=== PATIENT | male | born 1965 | race Caucasian/White ===

== ENCOUNTER → 2020-08-12 17:57 | Outpatient (CLI) | payer MEDICARE, MEDICAID, SELFPAY ==
[2020-08-12 18:23] LABS: Basophils # 0.2 K/mm3 (0-0.2); Eosinophils # 0.8 K/mm3 (0.0-0.4); Eosinophils % 4.4 % (0.1-12.0); Hematocrit 45.2 % (42.0-52.0); Hemoglobin 15.9 g/dL (14.1-18.0); Lymphocytes # 3.7 K/mm3 (0.7-4.5); Lymphocytes % 20.9 % (10-50); Mean Corpuscular HGB Conc 35.1 g/dL (31.8-35.4); Mean Corpuscular Hemoglobin 30.1 pg (27.0-31.2); Mean Corpuscular Volume 85.5 fl (80-94); Mean Platelet Volume 10.1 fl (7.4-10.4); Monocytes % 5.6 % (1.7-9.3); Neutrophils # 12.1 K/mm3 (1.8-7.8); Platelet Count 267 K/mm3 (142-424); Red Blood Count 5.28 M/mm3 (4.60-6.20); Red Cell Distribution Width 14.8 % (11.5-17.5); White Blood Count 17.8 K/mm3 (4.8-10.8)
[2020-08-12 18:27] LABS: MANUAL DIFFERENTIAL MANUAL DIFFERENTIAL (MANUAL DIFF)
[2020-08-12 18:29] LABS: Alanine Aminotransferase 28 U/L (12-78); Albumin Level 4.5 g/dl (3.5-5.0); Albumin/Globulin Ratio 1.4 (1.1-1.8); Alkaline Phosphatase 106 U/L (38-126); Anion Gap 18.6 mEq/L (5-15); Aspartate Amino Transferase 33 U/L (17-59); Bilirubin,Total 0.5 mg/dl (0.2-1.3); Blood Urea Nitrogen 9 mg/dl (9-20); Calcium 9.9 mg/dl (8.4-10.2); Carbon Dioxide 23 mmol/L (22.0-30.0); Chloride 101 mmol/L (98-107); Estimated Glomerular Filt Rate 58 ml/min (>60); GFR (African American) 70 ML/MIN (>60); Globulin 3.2 g/dL (1.3-3.2); Glucose 206 mg/dl (74-100); Potassium 4.6 mmoL/L (3.5-5.1); Sodium 138 mmol/L (136-145); Total Protein,Serum 7.7 g/dl (6.3-8.2)
[2020-08-12 18:33] LABS: Eosinophils % 4 % (0-3); Lymphocytes % 23 % (10-50); Monocytes % 10 % (2-9); Neutrophils % 63 % (42-76); Platelet Estimate Normal; RBC Morphology Normal; Total Cells Counted 100
[2020-08-12 18:46] LABS: T4 (Thyroxine) 9.5 ug/dl (5.53-11.0)
[2020-08-12 18:48] LABS: Hemoglobin A1C 7.6 % (4.0-6.0)
== END ==
PROVIDERS: Visit Provider Family Medicine
DX: G62.9 Polyneuropathy, unspecified (principal); R53.83 Other fatigue; E11.9 Type 2 diabetes mellitus without complications
CPT/HCPCS: 80053; 83036; 84436; 84443; 85007; 85025

== ENCOUNTER → 2021-04-21 13:48 | Outpatient (CLI) | payer MEDICARE, MEDICAID, SELFPAY ==
[2021-04-21 14:01] LABS: Alanine Aminotransferase 36 U/L (12-78); Albumin Level 4.3 g/dl (3.5-5.0); Albumin/Globulin Ratio 1.4 (1.1-1.8); Alkaline Phosphatase 93 U/L (38-126); Anion Gap 14.5 mEq/L (5-15); Aspartate Amino Transferase 32 U/L (17-59); Bilirubin,Total 0.7 mg/dl (0.2-1.3); Blood Urea Nitrogen 12 mg/dl (9-20); Calcium 9.2 mg/dl (8.4-10.2); Carbon Dioxide 23 mmol/L (22.0-30.0); Chloride 107 mmol/L (98-107); Estimated Glomerular Filt Rate 70 ml/min (>60); GFR (African American) 84 ML/MIN (>60); Glucose 186 mg/dl (74-100); HDL Cholesterol 21 mg/dl (40-60); Potassium 4.5 mmoL/L (3.5-5.1); Sodium 140 mmol/L (136-145); Total Protein,Serum 7.3 g/dl (6.3-8.2); Triglycerides 159 mg/dl (30-150); VLDL Cholesterol 32 mg/dL (0-40)
[2021-04-21 14:05] LABS: Chol/HDL Ratio 2.4 (1-3.5); Cholesterol < 50 mg/dl (140-200)
[2021-04-21 14:07] LABS: Creatinine,Urine Random 79 mg/dL (Not Estab.)
[2021-04-21 14:08] LABS: Microalbumin < 6.000 mg/L (0-16.7)
[2021-04-21 14:17] LABS: 25-OH Vitamin D, Total 54.2 ng/mL (30-100)
[2021-04-21 14:19] LABS: T4 (Thyroxine) 11.5 ug/dl (5.53-11.0)
[2021-04-21 14:24] LABS: Direct LDL Cholesterol < 30.00 mg/dL (100-129)
[2021-04-21 14:26] LABS: Basophils # 0.2 K/mm3 (0-0.2); Basophils % 1.2 % (0.1-2.0); Eosinophils # 0.5 K/mm3 (0.0-0.4); Eosinophils % 3.7 % (0.1-12.0); Hematocrit 48.2 % (42.0-52.0); Hemoglobin 16.3 g/dL (14.1-18.0); Lymphocytes # 2.8 K/mm3 (0.7-4.5); Lymphocytes % 20.6 % (10-50); Mean Corpuscular HGB Conc 33.9 g/dL (31.8-35.4); Mean Corpuscular Hemoglobin 28.7 pg (27.0-31.2); Mean Corpuscular Volume 84.7 fl (80-94); Mean Platelet Volume 11.3 fl (7.4-10.4); Monocytes # 0.6 K/mm3 (0.1-1.0); Monocytes % 4.7 % (1.7-9.3); Neutrophils # 9.4 K/mm3 (1.8-7.8); Neutrophils % 69.8 % (37.0-80.0); Platelet Count 220 K/mm3 (142-424); Red Blood Count 5.69 M/mm3 (4.60-6.20); Red Cell Distribution Width 14.9 % (11.5-17.5); White Blood Count 13.5 K/mm3 (4.8-10.8)
[2021-04-21 14:32] LABS: Prostate Specific Ag Screen 0.7 ng/ml (0.0-4.0); Thyroid Stimulating Hormone 0.32 uIU/mL (0.465-4.68)
[2021-04-21 15:04] LABS: Hemoglobin A1C 7.8 % (4.0-6.0)
== END ==
PROVIDERS: Visit Provider Family Medicine
DX: E11.9 Type 2 diabetes mellitus without complications (principal); Z12.5 Encounter for screening for malignant neoplasm of prostate; E55.9 Vitamin D deficiency, unspecified
CPT/HCPCS: 80053; 80061; 82043; 82306; 82570; 83036; 84436; 84443; 85025; G0103

== ENCOUNTER → 2021-07-20 17:06 | Outpatient (CLI) | payer MEDICARE, MEDICAID, SELFPAY ==
[2021-07-20 18:47] LABS: Hemoglobin A1C 9.9 % (4.0-6.0)
== END ==
PROVIDERS: Visit Provider Family Medicine
DX: E11.9 Type 2 diabetes mellitus without complications (principal); Z79.4 Long term (current) use of insulin
CPT/HCPCS: 83036

== ENCOUNTER → 2021-12-12 20:38 | Outpatient (CLI) | payer MEDICARE, MEDICAID, SELFPAY ==
[2021-12-12 21:58] LABS: Hemoglobin A1C 7.1 % (4.0-6.0)
[2021-12-12 22:07] LABS: Alanine Aminotransferase 24 U/L (12-78); Albumin Level 4.4 g/dl (3.5-5.0); Albumin/Globulin Ratio 1.5 (1.1-1.8); Alkaline Phosphatase 73 U/L (38-126); Anion Gap 13.4 mEq/L (5-15); Aspartate Amino Transferase 24 U/L (17-59); Bilirubin,Total 0.4 mg/dl (0.2-1.3); Blood Urea Nitrogen 13 mg/dl (9-20); Calcium 9.9 mg/dl (8.4-10.2); Carbon Dioxide 27 mmol/L (22.0-30.0); Chloride 100 mmol/L (98-107); Estimated Glomerular Filt Rate 69 ml/min (>60); GFR (African American) 84 ML/MIN (>60); Globulin 2.9 g/dL (1.3-3.2); Glucose 169 mg/dl (74-100); Potassium 4.4 mmoL/L (3.5-5.1); Sodium 136 mmol/L (136-145); Total Protein,Serum 7.3 g/dl (6.3-8.2)
== END ==
PROVIDERS: Visit Provider Family Medicine
DX: Z00.00 Encounter for general adult medical examination without abnormal findings (principal); E11.9 Type 2 diabetes mellitus without complications; Z79.4 Long term (current) use of insulin
CPT/HCPCS: 80053; 83036

== ENCOUNTER → 2022-05-11 13:32 | Outpatient (CLI) | payer MEDICARE, MEDICAID, SELFPAY ==
--- NOTE | 2022-05-11 13:36 | XR_ITS ---
FINAL REPORT CLINICAL HISTORY: knee pain FINDINGS: LEFT KNEE Four views of the left knee were obtained. There is no acute fracture or dislocation. Visualized joint spaces are normally aligned. Soft tissues are unremarkable. IMPRESSION: No acute bony abnormality. Reviewed, Interpreted and Dictated by Heron Claudio III, MD Transcribed by Heike Gomez Authenticated and [facility]
== END ==
PROVIDERS: PCP Family Medicine; Visit Provider Orthopaedic Surgery
DX: M25.562 Pain in left knee (principal)
CPT/HCPCS: 73564

== ENCOUNTER → 2023-01-24 14:44 | Outpatient (CLI) | payer MEDICARE, MEDICAID, SELFPAY ==
--- NOTE | 2023-01-24 14:50 | XR_ITS ---
FINAL REPORT CLINICAL HISTORY: Neck, mid back, and low back pain COMPARISON: None FINDINGS: CERVICAL SPINE: Limited evaluation of the cervical spine due to patient positioning and overlap of soft tissues. There are postsurgical changes from anterior fusion of C5-6. No gross malalignment. There is multilevel degenerative disc disease. Precervical soft tissues are unremarkable. IMPRESSION: Very limited exam. Degenerative disease. Consider CT if further evaluation needed. THORACIC SPINE: Changes from posterior fusion from T7 through T10. Alignment is normal. Vertebral body heights are preserved. There is multilevel degenerative disc disease. No acute paraspinous abnormality. IMPRESSION: Degenerative and postsurgical changes with no acute process. LUMBAR SPINE: Postoperative changes from fusion from L4 through S1. Vertebral body heights are preserved. Alignment is normal. There is multilevel degenerative disc disease. No acute paraspinous abnormality. IMPRESSION: Degenerative and postsurgical changes with no acute process. Reviewed, Interpreted and Dictated by Carmela Hernández MD Transcribed by Na Sims Authenticated and [facility]
== END ==
PROVIDERS: PCP Family Medicine; Visit Provider Family Medicine
DX: M54.2 Cervicalgia (principal); M54.6 Pain in thoracic spine; M54.9 Dorsalgia, unspecified; G89.29 Other chronic pain; M54.50 Low back pain, unspecified
CPT/HCPCS: 72084

== ENCOUNTER → 2023-04-16 15:48 | Outpatient (CLI) | payer MEDICARE, MEDICAID, SELFPAY | PROVIDERS: PCP Family Medicine; Visit Provider Family Medicine | DX: E11.59 Type 2 diabetes mellitus with other circulatory complications (principal) ==

== ENCOUNTER → 2023-04-16 19:25 | Outpatient (CLI) | payer MEDICARE, MEDICAID, SELFPAY ==
[2023-04-16 20:07] LABS: Alanine Aminotransferase 24 U/L (12-78); Albumin Level 4.5 g/dl (3.5-5.0); Albumin/Globulin Ratio 1.5 (1.1-1.8); Alkaline Phosphatase 92 U/L (38-126); Anion Gap 19.4 mEq/L (5-15); Aspartate Amino Transferase 48 U/L (17-59); Bilirubin,Total 0.7 mg/dl (0.2-1.3); Blood Urea Nitrogen 10 mg/dl (9-20); Calcium 9.3 mg/dl (8.4-10.2); Carbon Dioxide 24 mmol/L (22.0-30.0); Chloride 103 mmol/L (98-107); Estimated Glomerular Filt Rate 69 ml/min (>60); GFR (African American) 84 ML/MIN (>60); Globulin 3.1 g/dL (1.3-3.2); Glucose 94 mg/dl (74-100); Potassium 4.4 mmoL/L (3.5-5.1); Sodium 142 mmol/L (136-145); Total Protein,Serum 7.6 g/dl (6.3-8.2)
[2023-04-16 20:18] LABS: Hemoglobin A1C 7.2 % (4.0-6.0)
== END ==
PROVIDERS: PCP Family Medicine; Visit Provider Family Medicine
DX: E11.59 Type 2 diabetes mellitus with other circulatory complications; Z79.4 Long term (current) use of insulin
CPT/HCPCS: 80053; 83036

== ENCOUNTER → 2023-11-08 08:59 | Outpatient (CLI) | payer MEDICARE, MEDICAID, SELFPAY ==
[2023-11-08 21:50] LABS: Amphetamine/Metha Screen,Urine Negative ng/ml (<1000)
[2023-11-08 21:51] LABS: Barbiturates Screen,Urine Negative ng/ml (<200); Benzodiazepines Screen,Urine Negative ng/ml (<200)
[2023-11-08 21:52] LABS: Cannabinoid Screen,Urine Positive ng/ml (<50)
[2023-11-08 21:53] LABS: Cocaine Screen,Urine Negative ng/ml (<300); Methadone Screen,Urine Negative ng/ml (<300)
[2023-11-08 21:54] LABS: Opiate Screen,Urine Negative ng/ml (<300)
[2023-11-08 21:55] LABS: Phencyclidine Screen,Urine Negative ng/ml (<25)
== END ==
PROVIDERS: PCP Family Medicine; Visit Provider Family Medicine
DX: Z79.899 Other long term (current) drug therapy (principal)
CPT/HCPCS: 80305

== ENCOUNTER 2024-03-19 12:09 | Outpatient (CLI) | payer MEDICARE, MEDICAID, SELFPAY ==
[2024-03-19 12:39] LABS: Basophils # 0.2 K/mm3 (0-0.2); Basophils % 1.4 % (0.1-2.0); Eosinophils # 0.3 K/mm3 (0.0-0.4); Eosinophils % 1.7 % (0.1-12.0); Hematocrit 51.8 % (42.0-52.0); Hemoglobin 16.4 g/dL (14.1-18.0); Lymphocytes # 3.2 K/mm3 (0.7-4.5); Lymphocytes % 20.1 % (10-50); Mean Corpuscular HGB Conc 31.7 g/dL (31.8-35.4); Mean Corpuscular Hemoglobin 27.2 pg (27.0-31.2); Mean Corpuscular Volume 85.7 fl (80-94); Mean Platelet Volume 10.2 fl (7.4-10.4); Monocytes # 0.8 K/mm3 (0.1-1.0); Monocytes % 5.3 % (1.7-9.3); Neutrophils # 11.3 K/mm3 (1.8-7.8); Neutrophils % 71.5 % (37.0-80.0); Platelet Count 272 K/mm3 (142-424); Red Blood Count 6.04 M/mm3 (4.60-6.20); Red Cell Distribution Width 16.5 % (11.5-17.5); White Blood Count 15.8 K/mm3 (4.8-10.8)
[2024-03-19 12:41] LABS: MANUAL DIFFERENTIAL MANUAL DIFFERENTIAL (MANUAL DIFF)
[2024-03-19 12:54] LABS: INR 1.12 (0.9-1.1)
[2024-03-19 12:56] LABS: Lymphocytes % 18 % (10-50); Monocytes % 4 % (2-9); Neutrophils % 78 % (42-76); Total Cells Counted 100
[2024-03-19 12:57] LABS: Platelet Estimate Normal
[2024-03-19 13:01] LABS: Chloride 108 mmol/L (98-107); Potassium 4.3 mmoL/L (3.5-5.1); Sodium 142 mmol/L (136-145)
[2024-03-19 13:04] LABS: Alanine Aminotransferase 27 U/L (12-78); Albumin Level 4.4 g/dl (3.5-5.0); Albumin/Globulin Ratio 1.4 (1.1-1.8); Alkaline Phosphatase 71 U/L (38-126); Anion Gap 12.3 mEq/L (5-15); Aspartate Amino Transferase 33 U/L (17-59); Bilirubin,Total 0.9 mg/dl (0.2-1.3); Blood Urea Nitrogen 11 mg/dl (9-20); Carbon Dioxide 26 mmol/L (22.0-30.0); Estimated Glomerular Filt Rate 77 ml/min (>60); GFR (African American) 93 ML/MIN (>60); Globulin 3.1 g/dL (1.3-3.2); Total Protein,Serum 7.5 g/dl (6.3-8.2)
[2024-03-19 13:05] LABS: Calcium 9.8 mg/dl (8.4-10.2); Glucose 147 mg/dl (74-100)
[2024-03-19 18:06] LABS: Hemoglobin A1C 7.3 % (4.0-6.0)
== END 2024-03-19 23:59 | disposition home or self-care (01) ==
PROVIDERS: PCP Family Medicine; Visit Provider Nurse Practitioner
DX: K62.5 Hemorrhage of anus and rectum; K22.70 Barrett's esophagus without dysplasia; K63.5 Polyp of colon; E11.59 Type 2 diabetes mellitus with other circulatory complications; Z79.4 Long term (current) use of insulin; Z79.01 Long term (current) use of anticoagulants; Z72.0 Tobacco use
CPT/HCPCS: 36415; 80053; 83036; 85007; 85025; 85610

== ENCOUNTER 2024-05-13 15:25 | Outpatient (CLI) | payer MEDICARE, MEDICAID, SELFPAY ==
[2024-05-13 18:44] LABS: MANUAL DIFFERENTIAL MANUAL DIFFERENTIAL (MANUAL DIFF)
[2024-05-13 19:03] LABS: Basophils # 0.1 K/mm3 (0-0.2); Eosinophils # 0.2 K/mm3 (0.0-0.4); Eosinophils % 1.7 % (0.1-12.0); Hematocrit 45.5 % (42.0-52.0); Lymphocytes # 2.7 K/mm3 (0.7-4.5); Mean Corpuscular HGB Conc 32.9 g/dL (31.8-35.4); Mean Corpuscular Hemoglobin 27.9 pg (27.0-31.2); Mean Corpuscular Volume 84.9 fl (80-94); Mean Platelet Volume 10.9 fl (7.4-10.4); Monocytes # 0.8 K/mm3 (0.1-1.0); Monocytes % 6.3 % (1.7-9.3); Neutrophils % 69.9 % (37.0-80.0); Platelet Count 211 K/mm3 (142-424); Red Blood Count 5.36 M/mm3 (4.60-6.20); Red Cell Distribution Width 16.8 % (11.5-17.5); White Blood Count 12.9 K/mm3 (4.8-10.8)
[2024-05-13 19:30] LABS: Alanine Aminotransferase 32 U/L (12-78); Albumin/Globulin Ratio 1.4 (1.1-1.8); Alkaline Phosphatase 79 U/L (38-126); Aspartate Amino Transferase 33 U/L (17-59); Bilirubin,Total 0.4 mg/dl (0.2-1.3); Blood Urea Nitrogen 8 mg/dl (9-20); Calcium 9.3 mg/dl (8.4-10.2); Carbon Dioxide 25 mmol/L (22.0-30.0); Chloride 106 mmol/L (98-107); Chol/HDL Ratio 2.3 (1-3.5); Cholesterol 56 mg/dl (140-200); Estimated Glomerular Filt Rate 69 ml/min (>60); GFR (African American) 83 ML/MIN (>60); Globulin 2.9 g/dL (1.3-3.2); Glucose 136 mg/dl (74-100); HDL Cholesterol 24 mg/dl (40-60); Sodium 139 mmol/L (136-145); Total Protein,Serum 6.9 g/dl (6.3-8.2); Triglycerides 230 mg/dl (30-150); VLDL Cholesterol 46 mg/dL (0-40)
[2024-05-13 19:44] LABS: Direct LDL Cholesterol < 30.00 mg/dL (100-129)
[2024-05-13 20:01] LABS: Prostate Specific Ag Screen 1.4 ng/ml (0.0-4.0)
[2024-05-13 20:04] LABS: Eosinophils % 1 % (0-3); Lymphocytes % 24 % (10-50); Monocytes % 5 % (2-9); Neutrophils % 69 % (42-76); Platelet Estimate Normal; Total Cells Counted 100
[2024-05-13 20:05] LABS: Microcytosis 1+
== END 2024-05-13 23:59 | disposition home or self-care (01) ==
LOC: LAB.DROPOF 05-14 15:25
PROVIDERS: PCP Family Medicine; Visit Provider Family Medicine
DX: Z12.5 Encounter for screening for malignant neoplasm of prostate (principal); I25.10 Atherosclerotic heart disease of native coronary artery without angina pectoris; E11.59 Type 2 diabetes mellitus with other circulatory complications; Z79.4 Long term (current) use of insulin; Z79.84 Long term (current) use of oral hypoglycemic drugs; F17.210 Nicotine dependence, cigarettes, uncomplicated
CPT/HCPCS: 80053; 80061; 85007; 85014; 85018; 85048; 85049; G0103

== ENCOUNTER 2024-07-08 12:16 | Day surgery (SDC) | payer MEDICARE, MEDICAID, SELFPAY ==
[2024-07-08] MEDS: LACTATED RINGERS 1000ML 1,000 ML 25 ML IV (12:37)
[2024-07-08 12:51] LABS: POC Glucose,Bedside 167 (70-110)
[2024-07-08 12:54] VITALS: BP 123/71; PULSE 69; RESP 18; TEMP 36.6; O2SAT 95; BMI 33.8
[2024-07-08 13:44] VITALS: O2SAT 98
--- NOTE | 2024-07-08 14:02 | P.PNANES_ITS ---
[facility] Disclaimer: The information contained in this section may have been updated after the patient was seen, as this information can be updated by other users. Medical History (Updated 07/08/24 @ 12:41 by Dulce Maria Rodriguez RN) Appendicitis Diabetes Diverticulitis GERD (gastroesophageal reflux disease) Coronary artery disease Surgical History History of coronary artery stent placement Family History Unknown Adopted self-at 2 year old Social History Smoking Status: Current every day smoker tobacco type: cigarettes packs per day: 1 second hand exposure: Yes alcohol intake: current alcohol intake frequency: holidays/special occasions only substance use type: former substance user current occupational status: unemployed and disabled Travel in the last 8 weeks: None household members: spouse housing: house marital status: caffeine: Yes physical activity: walking do you feel safe at home: Yes victim of physical abuse: No victim of emotional abuse: No victim of sexual abuse: No would you like helpful sources: No [facility] Anesthesia Checklist Patient Identification Patient Identification: Arm Band Structural Data Admitted From: Home Planned Operative Procedure/s: EGD/Colonoscopy Consent for Planned Operative Procedure(s) Verified: Yes Verified Documents: Surgical Consent and History and Physical NPO Status Verified Time NPO: 00:00 Additional verifications Anesthesia Reactions: No Airway Assessment Mallampati Score:: Class II C-Spine Mobility Assessed: Yes TMJ Mobility Assessed: Yes Dentition: Edentulous Neurological Assessment Level of Consciousness: Awake, Alert and Appropriate Anesthesia Plan Anesthesia Risk discussed: Yes Anesthesia Plan: Verified ASA Class: IV Anesthesia Type: MAC
[2024-07-08 14:17] VITALS: BP 108/69; PULSE 66; RESP 18; O2SAT 96
--- NOTE | 2024-07-08 14:19 | HMH.SCOPE ---
Procedure: Date: 07/08/24 Patient Date of :: 1965 Procedure Performed:: Colonoscopy Indications:: The patient is a 58-year-old who presents for surveillance colonoscopy for history of polyps in the past. The patient reports last colonoscopy was 4 years ago. Performing Provider:: Adeel Sparks MD Referring Provider:: Hadley Joyce MD Sedation:: See RN records Procedure:: After placing the patient in the left lateral decubitus position, the colonoscopy was gently inserted into the rectum and under direct visualization advanced to the cecum which was identified by transillumination in the right lower quadrant, identification of the ileocecal valve, appendiceal orifice, and cecal strap. Color, texture, mucosa, and anatomy of the colon were carefully examined with the scope. Findings:: The examined colon appeared normal. There was endoscopic marker identified in the distal ascending colon and in the descending colon. On retroflexion view of the rectum there were internal hemorrhoids seen. The colon was somewhat redundant which resulted in looping of the colonoscope. Successful completion of the exam to cecum required counter abdominal pressure. Recommendations:: Repeat colonoscopy in 5 years for surveillance purposes Complications:: None Estimated blood obtained (mL): 0 Colonoscopy Component Colonoscopy Component Was a colonoscopy performed during today's procedure?: Yes Recommended follow up colonoscopy of at least 10 years?: Yes
--- NOTE | 2024-07-08 14:21 | HMH.SCOPE ---
Procedure: Date: 07/08/24 Patient Date of :: 1965 Procedure Performed:: EGD Indications:: The patient is a 58-year-old who presents for EGD for history of Coe's esophagus. The patient has use of pantoprazole 40 mg once daily. Performing Provider:: Adeel Sparks MD Referring Provider:: Hadley Joyce MD Sedation:: See RN records Procedure:: The gastroscope was gently passed through the incisoral orifice into the oral cavity and under direct visualization the esophagus was intubated. The endoscope was passed down the esophagus, through the stomach, and into the duodenum. Color, texture, mucosa, and anatomy of the esophagus, stomach, and duodenum were carefully examined with the scope. Findings:: The upper third and middle third of the esophagus appeared normal. There was a tongue of salmon-colored mucosa above the GE junction less than 1 cm in extent. There were a few small islands of salmon-colored mucosa in the distal esophagus. The Z-line was irregular and measured at 40 cm. Biopsies were obtained with a cold forceps for histology. The stomach appeared normal. The duodenum appeared normal. Impression: Short segment Coe's esophagus Recommendations:: Await pathology result Continue pantoprazole 40 mg once daily Repeat EGD in 5 years for Coe's esophagus, sooner if clinically indicated Complications:: None Estimated blood obtained (mL): 0 Colonoscopy Component Colonoscopy Component Was a colonoscopy performed during today's procedure?: No
[2024-07-08 14:27] VITALS: BP 98/62; PULSE 61; RESP 16; O2SAT 96
[2024-07-08 14:35] VITALS: BP 101/70; PULSE 65; RESP 16; O2SAT 96
[2024-07-08 14:47] VITALS: BP 108/70; PULSE 69; RESP 16; O2SAT 96
== END 2024-07-08 14:50 | disposition home or self-care (01) ==
PROVIDERS: PCP Family Medicine; Visit Provider Internal Medicine
PROC: 0DJ08ZZ Inspection of Upper Intestinal Tract, Via Natural or Artificial Opening Endoscopic (ICD-10-PCS; CPT 43235; principal; 2024-07-08 13:30)
DX: K92.2 Gastrointestinal hemorrhage, unspecified (principal); K21.9 Gastro-esophageal reflux disease without esophagitis; E11.8 Type 2 diabetes mellitus with unspecified complications; Z86.010 Personal history of colon polyps; K22.70 Barrett's esophagus without dysplasia; K64.8 Other hemorrhoids
CPT/HCPCS: 43239; 45378; 82962; 88305; J7120

== ENCOUNTER 2024-10-12 14:37 | Emergency (ER) | payer MEDICARE, MEDICAID, SELFPAY ==
[2024-10-12 15:23] VITALS: BP 142/80; PULSE 67; RESP 18; O2SAT 96; BMI 33.6
--- NOTE | 2024-10-12 15:26 | CT_ITS ---
PROCEDURE INFORMATION: Exam: CT Cervical Spine Without Contrast Exam date and time: 10/12/2024 4:57 PM Age: 58 years old Clinical indication: Injury or trauma; Fall; Blunt trauma; Additional info: Fall, trauma, blurred vision L eye TECHNIQUE: Imaging protocol: Computed tomography of the cervical spine without contrast. Radiation optimization: All CT scans at this facility use at least one of these dose optimization techniques: automated exposure control; mA and/or kV adjustment per patient size (includes targeted exams where dose is matched to clinical indication); or iterative reconstruction. COMPARISON: 1. CT FACIAL BONES WO CON 10/12/2024 4:[address] HEAD/BRAIN WO CON 10/12/2024 4:53 PM FINDINGS: Bones: Status post interbody fusion at C5-C6. Alignment is satisfactory. No acute fracture or subluxation. No aggressive osseous lesion. Lungs: Lung apices are normal. Vasculature: There are atherosclerotic calcifications of the carotid bulbs bilaterally. Soft tissues: Unremarkable. IMPRESSION: Postsurgical changes without acute injury identified.
--- NOTE | 2024-10-12 15:26 | CT_ITS ---
PROCEDURE INFORMATION: Exam: CT Maxillofacial Without Contrast Exam date and time: 10/12/2024 4:55 PM Age: 58 years old Clinical indication: Injury or trauma; Fall; Blunt trauma (contusions or hematomas); Other: Face; Additional info: Fall, trauma, blurred vision L eye TECHNIQUE: Imaging protocol: Computed tomography of the face without contrast. Radiation optimization: All CT scans at this facility use at least one of these dose optimization techniques: automated exposure control; mA and/or kV adjustment per patient size (includes targeted exams where dose is matched to clinical indication); or iterative reconstruction. COMPARISON: CT HEAD/BRAIN WO CON 10/12/2024 4:53 PM FINDINGS: Paranasal sinuses: No air-fluid levels. Orbital cavities: Orbits are normal. Globes are unremarkable. Teeth: The patient is edentulous. Bones: No acute fracture. Soft tissues: Unremarkable. IMPRESSION: No acute findings.
--- NOTE | 2024-10-12 15:26 | CT_ITS ---
PROCEDURE INFORMATION: Exam: CT Head Without Contrast Exam date and time: 10/12/2024 4:53 PM Age: 58 years old Clinical indication: Injury or trauma; Fall; Blunt trauma (contusions or hematomas); Additional info: Fall, trauma, blurred vision L eye TECHNIQUE: Imaging protocol: Computed tomography of the head without contrast. Radiation optimization: All CT scans at this facility use at least one of these dose optimization techniques: automated exposure control; mA and/or kV adjustment per patient size (includes targeted exams where dose is matched to clinical indication); or iterative reconstruction. COMPARISON: No relevant prior studies available. FINDINGS: Brain: Normal. No hemorrhage. Unremarkable white matter. No mass effect. Cerebral ventricles: No ventriculomegaly. Paranasal sinuses: Visualized sinuses are unremarkable. No fluid levels. Mastoid air cells: Visualized mastoid air cells are well aerated. Bones: Unremarkable. No acute fracture. Soft tissues: Unremarkable. IMPRESSION: No acute intracranial abnormality.
--- NOTE | 2024-10-12 15:33 | CT_ITS ---
PROCEDURE INFORMATION: Exam: CTA Neck With Contrast Exam date and time: 10/12/2024 5:00 PM Age: 58 years old Clinical indication: Injury or trauma; Fall; Blunt trauma; Head; Additional info: Trauma, syncope, L face injury, blurred vision TECHNIQUE: Imaging protocol: Computed tomographic angiography of the neck with contrast. Exam focused on the cervical segments of the vasculature. 3D rendering (Not supervised by radiologist): MIP and/or 3D reconstructed images were created by the technologist. Radiation optimization: All CT scans at this facility use at least one of these dose optimization techniques: automated exposure control; mA and/or kV adjustment per patient size (includes targeted exams where dose is matched to clinical indication); or iterative reconstruction. Contrast material: ISOVUE 370; Contrast volume: 80 ml; Contrast route: INTRAVENOUS (IV); COMPARISON: 1. CT CERVICAL SPINE WO CON 10/12/2024 4:[address] ANGIO HEAD 10/12/2024 5:[address] FACIAL BONES WO CON 10/12/2024 4:55 PM FINDINGS: Right common carotid artery: There is atherosclerotic disease of the right carotid bulb with a proximally 10% stenosis of the internal carotid artery (image 54 series 3). Right internal carotid artery: No stenosis of the extracranial segment. No dissection or occlusion. Right external carotid artery: No occlusion or stenosis of the origin. Left common carotid artery: There is atherosclerotic disease of the left carotid bulb with a proximally 20% stenosis of the internal carotid artery (image 58 series 3). Left internal carotid artery: No stenosis of the extracranial segment. No dissection or occlusion. Left external carotid artery: No occlusion or stenosis of the origin. Right vertebral artery: No stenosis. No dissection or occlusion. Left vertebral artery: No stenosis. No dissection or occlusion. Soft tissues: Normal. No significant soft tissue swelling. Bones/joints: No acute fracture. IMPRESSION: 1. There is atherosclerotic disease of the left carotid bulb with approximately 20% stenosis of the internal carotid artery (image 58 series 3). 2. There is atherosclerotic disease of the right carotid bulb with approximately 10% stenosis of the internal carotid artery (image 54 series 3). REFERENCES: NASCET CRITERIA. The degree of stenosis in the cervical segment of the internal carotid artery is based on NASCET criteria. Normal is no stenosis. Mild is less than 50% stenosis. Moderate is 50-69% stenosis. Severe is 70% to 99% stenosis. Total occlusion is no detectable patent lumen.
--- NOTE | 2024-10-12 15:33 | CT_ITS ---
PROCEDURE INFORMATION: Exam: CTA Head With Contrast, Arteriography Exam date and time: 10/12/2024 5:00 PM Age: 58 years old Clinical indication: Injury or trauma; Fall; Blunt trauma; Head; Additional info: Trauma, syncope, L face injury, blurred vision TECHNIQUE: Imaging protocol: Computed tomographic angiography of the head with contrast. Exam focused on the arteries. 3D rendering (Not supervised by radiologist): MIP and/or 3D reconstructed images were created by the technologist. Radiation optimization: All CT scans at this facility use at least one of these dose optimization techniques: automated exposure control; mA and/or kV adjustment per patient size (includes targeted exams where dose is matched to clinical indication); or iterative reconstruction. Contrast material: ISOVUE 370; Contrast volume: 80 ml; Contrast route: INTRAVENOUS (IV); COMPARISON: 1. CT HEAD/BRAIN WO CON 10/12/2024 4:[address] FACIAL BONES WO CON 10/12/2024 4:[address] ANGIO NECK 10/12/2024 5:00 PM FINDINGS: ANTERIOR CIRCULATION: Right internal carotid artery: Intracranial segment is patent with no significant stenosis. No aneurysm. Right middle cerebral artery: No occlusion or significant stenosis. No aneurysm. Right anterior cerebral artery: No occlusion or significant stenosis. No aneurysm. Left internal carotid artery: Intracranial segment is patent with no significant stenosis. No aneurysm. Left middle cerebral artery: No occlusion or significant stenosis. No aneurysm. Left anterior cerebral artery: No occlusion or significant stenosis. No aneurysm. POSTERIOR CIRCULATION: Right vertebral artery: No occlusion or significant stenosis. No aneurysm. Left vertebral artery: No occlusion or significant stenosis. No aneurysm. Basilar artery: No occlusion or significant stenosis. No aneurysm. Right posterior cerebral artery: No occlusion or significant stenosis. No aneurysm. Left posterior cerebral artery: No occlusion or significant stenosis. No aneurysm. Brain: No definite mass, mass effect, or midline shift. Cerebral ventricles: No ventriculomegaly. Bones/joints: Unremarkable. No acute fracture. Soft tissues: Unremarkable. IMPRESSION: No large vessel stenosis or occlusion.
--- NOTE | 2024-10-12 15:33 | [facility].EDGENADL ---
Discharge Plan Disposition Patient Disposition: Home, Self-Care Condition: Good Prescriptions Prescriptions: New methocarbamol 750 mg tablet 750 mg PO Q8H PRN (Reason: pain) Qty: 20 0RF No Action Xarelto 20 mg tablet 20 mg PO DAILY clonazepam [Klonopin] 2 mg tablet 2 mg PO QHS Qty: 30 5RF Rx Instructions: okay to fill early hydrocodone-acetaminophen 7.5-325 mg tablet 1 tab PO Q8H PRN (Reason: pain) Qty: 90 0RF insulin glargine [Lantus Solostar U-100 Insulin] 100 unit/mL (3 mL) insulin pen 25 unit SQ .bedtime mupirocin 2 % ointment 1 applic topical TID Qty: 15 0RF pantoprazole 40 mg tablet,delayed release (DR/EC) 20 ea PO DAILY ipratropium-albuterol 0.5 mg-3 mg(2.5 mg base)/3 mL solution for nebulization 3 ml inhalation Q6H Qty: 180 10RF Trelegy Ellipta 200-62.5-25 mcg blister with device 1 inh inhalation DAILY Qty: 60 10RF bisoprolol fumarate 10 mg tablet 20 mg PO DAILY (DME) lancets [OneTouch Delica Lancets] 33 gauge misc See Rx Instructions .Route Qty: 100 2RF Rx Instructions: As directed twice daily (DME) pen needle, diabetic [Unifine Pentips Plus] 31 gauge x 3/16 needle See Rx Instructions .ROUTE .COMPLEX Qty: 1200 0RF Dose Instruction: USE DIRECTED. Rx Instructions: USE DIRECTED. paroxetine HCl [Paxil] 20 mg tablet 20 mg PO DAILY Qty: 90 3RF Brilinta 90 mg tablet See Rx Instructions .ROUTE .COMPLEX Qty: 180 0RF Dose Instruction: TAKE ONE (1) TABLET BY MOUTH TWO TIMES A DAY. Rx Instructions: TAKE ONE (1) TABLET BY MOUTH TWO TIMES A DAY. tizanidine [Zanaflex] 4 mg tablet See Rx Instructions .ROUTE .COMPLEX Qty: 90 10RF Rx Instructions: TAKE 1 TABLET BY MOUTH EVERY 8 HOURS NEEDED FOR MUSCLE SPASTICITY. lisinopril 10 mg tablet See Rx Instructions .ROUTE .COMPLEX Qty: 180 0RF Dose Instruction: TAKE 2 TABLETS BY MOUTH DAILY. Rx Instructions: TAKE 2 TABLETS BY MOUTH DAILY. Januvia 100 mg tablet See Rx Instructions .ROUTE .COMPLEX Qty: 90 0RF Dose Instruction: TAKE 1 TABLET BY MOUTH DAILY. Rx Instructions: TAKE 1 TABLET BY MOUTH DAILY. Jardiance 25 mg tablet See Rx Instructions .ROUTE .COMPLEX Qty: 90 3RF Dose Instruction: TAKE 1 TABLET BY MOUTH DAILY. Rx Instructions: TAKE 1 TABLET BY MOUTH DAILY. gabapentin 600 mg tablet 600 mg PO Q8H PRN (Reason: pain) Qty: 90 5RF atorvastatin 80 mg tablet See Rx Instructions .ROUTE .COMPLEX Qty: 90 5RF Dose Instruction: TAKE 1 TABLET BY MOUTH AT BEDTIME. Rx Instructions: TAKE 1 TABLET BY MOUTH AT BEDTIME. evolocumab 140 mg/mL Pen Injector 140 mg SQ WEEKLY Referrals Follow up/Referrals: Jhony Joyce MD [Primary Care Provider] - See instructions Activity Restrictions/Add. Instructions Additional Instructions/Restrictions: You were evaluated in the emergency department today. Please follow-up very closely with your primary care provider for reassessment. I also recommend follow-up with a solar energy sales specialist as well as with your eye doctor over the next 48 hours as possible. Use the erythromycin ointment provided to you every 4 hours while awake for the next 3 days. 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 You may also take Tylenol every 4-6 hours at home as needed. Return to the emergency department right away for new or worsening symptoms Clinical Impressions Clinical Impression: Fall, Abrasion of face, KEISHA (subconjunctival hemorrhage), Abrasion, corneal, Neck strain Instructions Patient Instructions: DI for Corneal Abrasion, DI for Neck Sprain Print Language Print Language: German Discharge ED Provider: Destiny Aguila General Adult HPI General Chief complaint: Fall Stated complaint: ao 10/10, face laceration Time Seen by Provider: 10/12/24 15:18 Mode of Arrival: Ambulatory Source of Information: Patient Limitations: No Limitations Description of Symptoms (Recalled from ER Triage Doc. by RN): Pt reports he fell face first into the carpeted floor on saturday night. Pt reports he has had a headache, blurred vision in his left eye and neck pain since. Pt does take Xarelto and Brilinta. History of Present Illness HPI narrative: This patient is a 58-year-old male with a history of CAD status post stenting on Brilinta, chronic anticoagulation with Xarelto, GERD, tobacco use, hyperlipidemia, hypertension, and diabetes presenting to the emergency department for evaluation with concern for head injury with blurred vision in his left eye. Patient reports that Saturday evening 2 days ago he was laughing at something and aspirated his drink. He notes that he choked for a long time, and he was leaned over a trash can coughing when he lost consciousness. He fell forward with his face on the ground, hitting his face on the carpet. He since and has had headache, blurred vision in his left eye, and neck pain and stiffness. He does note that he is had prior neck fusion surgery. He went to his PCPs office today and was told to come to the ED for CT scans. He also notes that both of his hands wear, which she assumed was because of his neck, but no significant numbness, tingling, or weakness. No chest pain, shortness of breath, or other concerns. Related Data Home Medications ?Medication ?Instructions ?Recorded ?Confirmed pantoprazole 40 mg tablet,delayed 20 ea PO DAILY 08/12/20 10/12/24 release rivaroxaban 20 mg tablet (Xarelto) 20 mg PO DAILY 07/20/21 10/12/24 bisoprolol fumarate 10 mg tablet 20 mg PO DAILY 05/13/24 10/12/24 evolocumab 140 mg/mL subcutaneous 140 mg SQ WEEKLY 07/08/24 10/12/24 pen injector insulin glargine 100 unit/mL (3 25 unit SQ .bedtime 10/12/24 mL) subcutaneous pen (Lantus Solostar U-100 Insulin) Previous Rx's ?Medication ?Instructions ?Recorded lancets 33 gauge (OneTouch Delica #100 ea 11/13/21 Lancets) fluticasone fur. 200 mcg-umeclid 1 inh inhalation DAILY #60 ea 12/13/22 62.5 mcg-vilant 25 mcg inhalat.powder (Trelegy Ellipta) ipratropium 0.5 mg-albuterol 3 mg 3 ml inhalation Q6H #180 mL 12/13/22 (2.5 mg base)/3 mL nebulization soln pen needle, diabetic 31 gauge x #1,200 ea 04/21/2402/14 (Unifine Pentips Plus) paroxetine HCl 20 mg tablet (Paxil) 20 mg PO DAILY #90 tabs 06/15/24 clonazepam 2 mg tablet (Klonopin) 2 mg PO QHS #30 tabs 07/03/24 ticagrelor 90 mg tablet (Brilinta) See Rx Instructions .Route 07/21/24 .COMPLEX #180 tabs tizanidine 4 mg tablet (Zanaflex) See Rx Instructions .Route 07/31/24 .COMPLEX #90 tabs lisinopril 10 mg tablet See Rx Instructions .Route 08/19/24 .COMPLEX #180 tabs empagliflozin 25 mg tablet See Rx Instructions .Route 08/31/24 (Jardiance) .COMPLEX #90 tabs gabapentin 600 mg tablet 600 mg PO Q8H PRN pain #90 tabs 08/31/24 sitagliptin phosphate 100 mg See Rx Instructions .Route 08/31/24 tablet (Januvia) .COMPLEX #90 tabs hydrocodone 7.5 mg-acetaminophen 1 tab PO Q8H PRN pain #90 tabs 09/14/24 325 mg tablet atorvastatin 80 mg tablet See Rx Instructions .Route 09/24/24 .COMPLEX #90 tabs methocarbamol 750 mg tablet 750 mg PO Q8H PRN pain #20 tabs 10/12/24 mupirocin 2 % topical ointment 1 applic topical TID #15 grams 10/12/24 Allergies Allergy/AdvReac Type Severity Reaction Status Date / Time isosorbide Allergy Unknown Verified 10/12/24 13:10 Penicillins Allergy Unknown Anaphylaxis Verified 10/12/24 13:10 pseudoephedrine Allergy Unknown Hypertensio Verified 10/12/24 13:10 [From Sudafed] n aspartame Allergy Verified 10/12/24 13:10 coconut Allergy Verified 10/12/24 13:10 cucumber Allergy Verified 10/12/24 13:10 metformin AdvReac Gastrointestinal Verified 10/12/24 13:10 Upset PFS PFS Disclaimer: The information contained in this section may have been updated after the patient was seen, as this information can be updated by other users. Medical History Blurred vision, left eye Abrasion of face Fall at home Traumatic ecchymosis of face Appendicitis Diabetes Diverticulitis GERD (gastroesophageal reflux disease) Coronary artery disease Surgical History History of coronary artery stent placement Family History Unknown Adopted Social History Smoking Status: Current every day smoker tobacco type: cigarettes packs per day: 1 second hand exposure: Yes alcohol intake: current alcohol intake frequency: holidays/special occasions only substance use type: former substance user current occupational status: unemployed and disabled Travel in the last 8 weeks: None household members: spouse housing: house marital status: caffeine: Yes physical activity: walking do you feel safe at home: Yes victim of physical abuse: No victim of emotional abuse: No victim of sexual abuse: No would you like helpful sources: No Other Medical History Have you received the Pneumonia Vaccine: No ROS Obtained: Yes All systems reviewed & no additional complaints except as documented Physical Exam General General appearance: alert and in no apparent distress Head Head exam: normocephalic and other (Superficial abrasions to the left forehead and left cheek consistent with carpet burn) Eye Eye exam: Present PERRL, EOMI and other (Minimal left subconjunctival hemorrhage. Subjective blurry vision of the left eye, but no diplopia or focal visual field deficits); Absent periorbital swelling ENT ENT exam: Present normal exam, normal oropharynx, mucous membranes moist and normal external ear exam Neck Neck exam: Present normal inspection, full ROM and trachea midline; Absent tenderness Chest Chest inspection: Present normal inspection and symmetric chest wall rise; Absent tenderness Respiratory Respiratory exam: Present normal lung sounds bilaterally; Absent respiratory distress, wheezes, stridor or accessory muscle use Cardiovascular Cardiovascular exam: Present regular rate and normal rhythm Abdominal Exam Abdominal exam: Present soft; Absent distention, tenderness or guarding Extremities Exam Extremities exam: Present normal inspection, full ROM and normal capillary refill; Absent tenderness or edema Back Exam Back exam: Present normal inspection and full ROM; Absent tenderness Neurological Exam Neurological exam: Present alert, oriented X3, normal gait and other (Aside from blurred vision, otherwise neurologically intact); Absent CN II-XII intact (Subjective blurred vision of the left eye) or motor sensory deficit Psychiatric Psychiatric exam: Present normal affect and normal mood Skin Skin exam: Present warm and dry Medical Decision Making Medical Records Medical records reviewed: Yes I reviewed the patient's medical records. Screening: Per USPSTF and CDC recommendations, given the prevalence of disease in our region, it is our hospital?s policy to screen for HIV and viral Hepatitis for all patients aged 18 and over and those with ongoing risk factors. [facility] Inquiry Pt receiving controlled substance: No Vital Signs: 10/12/24 15:23 10/12/24 18:38 Temperature 98.2 F Temperature Source Oral Pulse Rate 71 Pulse Rate [Right Brachial] 67 Respiratory Rate 18 18 Blood Pressure 145/72 H Blood Pressure [Right Arm] 142/80 H Blood Pressure Mean [Right Arm] 100 02 Sat by Pulse Oximetry 96 Oxygen Delivery Method Room Air Room Air Lab Data Lab results reviewed: Yes I reviewed the patient's lab results. Lab Results 10/12/24 16:15: WBC 11.7 H, RBC 5.66, Hgb 15.4, Hct 45.4, MCV 80.3, MCH 27.2, MCHC 33.9, RDW 16.2, Plt Count 211, MPV 10.6 H, Neut % (Auto) 68.1, Lymph % (Auto) 20.9, [place] % (Auto) 7.7, Eos % (Auto) 2.3, Baso % (Auto) 1.0, Neut # (Auto) 8.0 H, Lymph # (Auto) 2.5, [place] # (Auto) 0.9, Eos # (Auto) 0.3, Baso # (Auto) 0.1, Sodium 140, Potassium 3.9, Chloride 108 H, Carbon Dioxide 24, Anion Gap 11.9, BUN 10, Creatinine 1.00, Estimated Creat Clear 112, Estimated GFR 77, Est GFR ( Amer) 93, Glucose 156 H, Calcium 8.8, Total Bilirubin 0.6, AST 24, ALT 21, Alkaline Phosphatase 75, Total Protein 7.3, Albumin 4.2, Globulin 3.1, Albumin/Globulin Ratio 1.4, HIV 1&2 Antibody Rapid Preliminary reactive 10/12/24 16:15 10/12/24 16:15 Orders (Tests/Meds): ED MEDICATIONS Discontinued Medications Generic Name Dose Route Start Last Admin Trade Name Freq PRN Reason Stop Dose Admin Acetaminophen 1,000 mg 10/12/24 17:28 10/12/24 17:48 Acetaminophen 500mg Tab PO 10/12/24 17:29 1,000 mg ONCE ONE Administration Diazepam 5 mg 10/12/24 17:35 10/12/24 17:49 Diazepam 5mg Tablet PO 10/12/24 17:36 5 mg ONCE ONE Administration Erythromycin 1 gm 10/12/24 17:28 10/12/24 17:49 Erythromycin Base 1 Gm Oint...G. OP 10/12/24 17:29 1 gm ONCE ONE Administration Fluorescein Sodium 1 mg 10/12/24 17:28 10/12/24 17:49 Fluorescein Sodium 1mg Strip OP 10/12/24 17:29 1 mg ONCE ONE Administration Iopamidol 80 ml 10/12/24 16:54 10/12/24 16:56 Iopamidol-370 (76%);100ml Bottle IV 10/12/24 16:55 80 ml ONCE ONE Administration Lidocaine 1 each 10/12/24 17:28 10/12/24 17:48 Lidocaine 5% Transdermal Patch TP 10/12/24 17:29 1 each ONCE ONE Administration Methocarbamol 500 mg 10/12/24 17:28 10/12/24 17:49 Methocarbamol 500mg Tablet PO 10/12/24 17:29 Not Given ONCE ONE Sodium Chloride 10 ml 10/12/24 16:54 10/12/24 16:56 Sodium Chloride 0.9% 10ml Syr (Rad Only) IV 10/12/24 16:55 10 ml ONCE ONE Administration Sodium Chloride 50 ml 10/12/24 16:54 10/12/24 16:56 0.9 % Sodium Chloride 50 Ml Vial IV 10/12/24 16:55 50 ml ONCE ONE Administration Tetracaine HCl 0 ml 10/12/24 17:28 10/12/24 17:49 Tetracaine 0.5% Opth Faith 15ml OP 10/12/24 17:29 15 ml ONCE ONE Administration ORDERS Category Date Time Status CT angio head Stat Cat Scan 10/12/24 15:[address] angio neck Stat Cat Scan 10/12/24 15:[address] cervical spine wo con Stat Cat Scan 10/12/24 15:[address] facial bones wo con Stat Cat Scan 10/12/24 15:[address] head/brain wo con Stat Cat Scan 10/12/24 15:26 Completed CBC w/Auto Diff [Complete Blood Count Auto Diff] Stat Lab 10/12/24 16:15 Completed CMP [Comprehensive Metabolic Panel] Stat Lab 10/12/24 16:15 Completed HIV (1&2) Antibody Rapid Stat Lab 10/12/24 16:15 Completed Hep C Ab with Reflex to RNA Stat Lab 10/12/24 16:15 Received Medical Decision Narrative: In summary, this patient is a 58-year-old male presenting to the Emergency Department for evaluation of fall 2 days ago with headache, neck pain, and blurred vision of his left eye. He is on blood thinners. Differential diagnoses considered include but are not limited to facial fracture, intracranial hemorrhage, vitreous hemorrhage, hyphema, C-spine fracture, vascular injury. Ruling out the most morbid conditions drove assessment. It should be noted patient's history includes hypertension, hyperlipidemia, diabetes, CAD which may or may not be at goal therapy. This complicates all aspects of care by increasing patient's risk for morbidity. I reviewed patient's past medical records and noted PCP evaluations in the past as well as the one today that prompted evaluation in the ER. On exam, the patient is sitting upright in a chair in no acute distress. He has blurred vision of the left eye but otherwise is neurologically intact. He has small subconjunctival hemorrhage of the left eye but no obvious visual hyphema. Pupils are equal and reactive and extraocular movements are intact. He does not have his glasses with him, which he typically uses to be able to see. Vision is 20/40 in the right eye, 20/50 in the left eye, 20/30 in both eyes. Unsure what he is at his baseline. Workup included CT head, CT face without contrast, CT C-spine, CT angiogram of the head and neck as well as basic lab evaluation. I independently interpreted CT scan prior to the radiologist read and noted no obvious intracranial hemorrhage or fracture. Please see their read for final interpretation. Labs were obtained that demonstrated reassuring CBC and chemistry. On reassessment, the patient is resting comfortably. He was found to have a small corneal abrasion after fluorescein staining of his eye. Pressures in his eyes are normal, left eye being 11 and right eye being 13. Overall, exam is very reassuring. I advised him that I would recommend close ophthalmology follow-up and would recommend that we call [facility] for ophthalmology recommendations now given his blurred vision, but he states that he has an eye doctor that he sees and would rather go home now and follow-up with them tomorrow. Given this, patient appropriate for discharge via patient directed discharge. He is given prescription for Robaxin to treat muscle spasms related to this injury and I also given instructions to follow-up closely with his primary care provider and eye doctor as well as a solar energy sales specialist given his spine history. He expressed understanding and agreement. He was discharged after all questions were answered. Critical Care Critical Care Time Critical Care Time: No
--- NOTE | 2024-10-12 15:41 | PC.NURSE ---
visual acuity left 20/50 right 20/40 both 20/30
[2024-10-12 16:25] LABS: Basophils # 0.1 K/mm3 (0-0.2); Eosinophils # 0.3 K/mm3 (0.0-0.4); Eosinophils % 2.3 % (0.1-12.0); Hematocrit 45.4 % (42.0-52.0); Hemoglobin 15.4 g/dL (14.1-18.0); Lymphocytes # 2.5 K/mm3 (0.7-4.5); Lymphocytes % 20.9 % (10-50); Mean Corpuscular HGB Conc 33.9 g/dL (31.8-35.4); Mean Corpuscular Hemoglobin 27.2 pg (27.0-31.2); Mean Corpuscular Volume 80.3 fl (80-94); Mean Platelet Volume 10.6 fl (7.4-10.4); Monocytes # 0.9 K/mm3 (0.1-1.0); Monocytes % 7.7 % (1.7-9.3); Neutrophils % 68.1 % (37.0-80.0); Platelet Count 211 K/mm3 (142-424); Red Blood Count 5.66 M/mm3 (4.60-6.20); Red Cell Distribution Width 16.2 % (11.5-17.5); White Blood Count 11.7 K/mm3 (4.8-10.8)
[2024-10-12 16:37] LABS: Alanine Aminotransferase 21 U/L (12-78); Albumin Level 4.2 g/dl (3.5-5.0); Albumin/Globulin Ratio 1.4 (1.1-1.8); Alkaline Phosphatase 75 U/L (38-126); Anion Gap 11.9 mEq/L (5-15); Aspartate Amino Transferase 24 U/L (17-59); Bilirubin,Total 0.6 mg/dl (0.2-1.3); Blood Urea Nitrogen 10 mg/dl (9-20); Calcium 8.8 mg/dl (8.4-10.2); Carbon Dioxide 24 mmol/L (22.0-30.0); Chloride 108 mmol/L (98-107); Creatinine Clearance Estimated 112 mL/min (50-200); Estimated Glomerular Filt Rate 77 ml/min (>60); GFR (African American) 93 ML/MIN (>60); Globulin 3.1 g/dL (1.3-3.2); Glucose 156 mg/dl (74-100); Potassium 3.9 mmoL/L (3.5-5.1); Sodium 140 mmol/L (136-145); Total Protein,Serum 7.3 g/dl (6.3-8.2)
[2024-10-12] MEDS: IOPAMIDOL-370 (76%);100ML BOTTLE 80 ML IV (16:56)
[2024-10-12] MEDS: 0.9 % SODIUM CHLORIDE 50 ML VIAL IV (16:56)
[2024-10-12] MEDS: SODIUM CHLORIDE 0.9% 10ML SYR (RAD ONLY) 10 ML IV (16:56)
[2024-10-12] MEDS: LIDOCAINE 5% TRANSDERMAL PATCH 1 EACH TP (17:48)
[2024-10-12] MEDS: ACETAMINOPHEN 500MG TAB 1000 MG PO (17:48)
[2024-10-12] MEDS: ERYTHROMYCIN BASE 1 GM OINT...G. OP (17:49)
[2024-10-12] MEDS: diazePAM 5MG TABLET 5 MG PO (17:49)
[2024-10-12] MEDS: FLUORESCEIN SODIUM 1MG STRIP 1 MG OP (17:49)
[2024-10-12] MEDS: TETRACAINE 0.5% OPTH SOL 15ML OP (17:49)
[2024-10-12 18:38] VITALS: BP 145/72; PULSE 71; RESP 18; TEMP 36.8; O2SAT 97
[2024-10-13 09:22] LABS: HIV Screen 4th Generation wRfx Non Reactive (Non Reactive)
[2024-10-13 10:22] LABS: HCV Ab Non Reactive (Non Reactive)
== END 2024-10-12 18:14 | disposition home or self-care (01) ==
PROVIDERS: Emergency Provider Emergency Medicine; PCP Family Medicine
DX: S16.1XXA Strain of muscle, fascia and tendon at neck level, initial encounter (principal); S05.00XA Injury of conjunctiva and corneal abrasion without foreign body, unspecified eye, initial encounter; H11.30 Conjunctival hemorrhage, unspecified eye; R51.9 Headache, unspecified; H53.8 Other visual disturbances; M54.2 Cervicalgia; W18.39XA Other fall on same level, initial encounter; Y93.89 Activity, other specified; Y92.008 Other place in unspecified non-institutional (private) residence as the place of occurrence of the external cause
CPT/HCPCS: 70450; 70486; 70496; 70498; 72125; 80053; 85025; 86703; 86803; 87389; 99285; G0432; Q9967

== ENCOUNTER 2025-01-27 14:36 | Outpatient (CLI) | payer MEDICARE, SELFPAY ==
[2025-01-27 18:49] LABS: Creatinine,Urine Random 154 mg/dL (Not Estab.); Microalbumin < 6.000 mg/L (0-16.7)
[2025-01-27 20:09] LABS: Alanine Aminotransferase 15 U/L (12-78); Albumin Level 4.2 g/dl (3.5-5.0); Albumin/Globulin Ratio 1.6 (1.1-1.8); Alkaline Phosphatase 100 U/L (38-126); Anion Gap 10.2 mEq/L (5-15); Aspartate Amino Transferase 19 U/L (17-59); Bilirubin,Total 0.4 mg/dl (0.2-1.3); Blood Urea Nitrogen 9 mg/dl (9-20); Calcium 9.2 mg/dl (8.4-10.2); Carbon Dioxide 22 mmol/L (22.0-30.0); Chloride 107 mmol/L (98-107); Estimated Glomerular Filt Rate 69 ml/min (>60); GFR (African American) 83 ML/MIN (>60); Globulin 2.7 g/dL (1.3-3.2); Glucose 103 mg/dl (74-100); Potassium 4.2 mmoL/L (3.5-5.1); Sodium 135 mmol/L (136-145); Total Protein,Serum 6.9 g/dl (6.3-8.2)
== END 2025-01-27 23:59 | disposition home or self-care (01) ==
LOC: LAB.DROPOF 01-28 15:27
PROVIDERS: PCP Family Medicine; Visit Provider Family Medicine
DX: E11.59 Type 2 diabetes mellitus with other circulatory complications (principal)
CPT/HCPCS: 80053; 82043; 82570

== ENCOUNTER 2025-05-24 10:38 | Outpatient (CLI) | payer MEDICARE, SELFPAY ==
[2025-05-24 19:25] LABS: Alanine Aminotransferase 16 U/L (12-78); Albumin Level 4.1 g/dl (3.5-5.0); Albumin/Globulin Ratio 1.4 (1.1-1.8); Alkaline Phosphatase 94 U/L (38-126); Anion Gap 10.2 mEq/L (5-15); Aspartate Amino Transferase 23 U/L (17-59); Bilirubin,Total 0.5 mg/dl (0.2-1.3); Blood Urea Nitrogen 7 mg/dl (9-20); Calcium 9.9 mg/dl (8.4-10.2); Carbon Dioxide 23 mmol/L (22.0-30.0); Chloride 108 mmol/L (98-107); Estimated Glomerular Filt Rate 77 ml/min (>60); GFR (African American) 93 ML/MIN (>60); Glucose 202 mg/dl (74-100); Potassium 4.2 mmoL/L (3.5-5.1); Sodium 137 mmol/L (136-145); Total Protein,Serum 7.1 g/dl (6.3-8.2)
[2025-05-24 20:31] LABS: Hemoglobin A1C 9.1 % (4.0-6.0)
--- OUTSIDE RECORDS SUMMARY | 2025-05-26 11:01 | XMS_ITS | Continuity of Care Document ---
Author Organization [place] - [facility] & [place], [facility] Address [address] [place] [address] Care Team Providers Care Senior Credit Officer Name Role Phone JHONY JOYCE Primary Care Provider [phone] Assessment No assessment recorded. Plan of Treatment Reminders Order Date Submit Date Provider Last Modified By Organization Details Last Modified Time Details Appointments OV EST 30 025 01:00PM REE DUNHAM NP, S Not available Not available Not available OV EST 30 025 01:30PM OLIVIA GEORGES NP Not available Not available Not available Lab alpha-1 -antitr ypsin (aat), QN, serum 025 025 [email or web address] 1 [facility] (Registration ), [address] [place], [address], 04/13/2025 09:12:17 Referral None recorde d. Procedures None recorde d. Surgeries None recorde d. Imaging None recorde d. Medication Orders None recorde d. Patient TargetsNo targets recorded. Patient Instructions Encounter Date Encounter Id Patient Instructions Last Modified By Organization Details Last Modified Time 04/01/2025 [id number] alpha 1 antitryspin level per PCP or another aircraft instrument engineer CT scan of chest in June 2025 for 3 month follow-up , as per primary care provider and/or another aircraft instrument engineer Tobacco cessation. Weight loss. Continue albuterol nebs or albuterol inhaler Q 4 p.r.n.. He states he will discuss with Dr. Joyce today for a referral to another aircraft instrument engineer and also discuss CT scan of chest in 3 months or June 2025 and/or a possible lung biopsy in the future per another aircraft instrument engineer. addendum: Note I reordered an alpha 1 antitrypsin level. Patient states he may obtain this per his primary care provider and/ or another aircraft instrument engineer. I told patient if he obtains this here, I am available till April 16, 2025 to check the results as I am retiring after this, he voiced understanding. [email or web address] Not available 04/04/2025 12:00:17 Reason for Referral None Reported. Results Created Date Observation Date Name Description Value Unit Range Abnormal Flag Note LastModifiedBy Organization Detail LastModifiedTime 03/08/20 elect debby christopher am No observ ation record ed. EUNICE Mv [address], [place], [address], 03/08/2025 13:06:49 03/08/20 25 03/08/2025 elect debby christopher am No observ ation record ed. [email or web address] Not Available 2024 13:10:22 03/10/20 25 03/10/2025 LDCT, chest , for lung kenneth ocampo [facility] Name: Angelo BAKER [facility] Phys: Christina pina MD, [place] [address] : 1964 Age: 59 Sex: M Acct: [id number] Loc: G.CT PHONE #: [phone] Exam Date: 2024 Status : DEP CLI FAX #: Rad# [id number] Unit# [id number] Admit Date: 2024 EXAMS: CPT CODE: [id number] CT CHEST LDCT LUNG SCREEN G0297 EXAMIN ATION: CT CHEST WITHOU T CONTRA ST SCREEN ING FOR LUNG CANCER WITH LOW DOSE COMPUT ED TOMOGR APHY (LDCT) CLINIC AL INDICA TION: Male, 59 years old. LUNG SCREEN ING. TECHNI QUE: Low dose CT scan of the chest withou t intrav enous contra st. One or more of the follow ing dose reduct ion techni ques were used: Automa rahel exposu re contro l, adjust ment of the mA and/or kV accord ing to patien t size, and/or iterat chapo recons tructi on. Unless otherw ise specif ied, incide ntal findin gs do not requir e dedica rahel imagin g follow -up. [id number] . COMPAR AVANI: Diagno stic chest withou t from March 17, 2024. FINDIN GS: LOWER NECK: Visual ized thyroi d gland and soft tissue s are normal . LUNGS AND AIRWAY S: New sub-2 cm ground glass nodule in the right apex on image 57. New sub-4 mm averag e flat densit y along the pleura l surfac e in the right upper lobe on image 74. There are few tiny calcif ied granul omata which are stable . Perifi ssural nodule in the left lung on image 114 stable . No new signif icant soft tissue pulmon emiliano nodule s. PLEURA : No pleura l effusi on. No pneumo thorax . Hemidi aphrag ms are normal ly positi oned. MEDIAS TINUM AND LYMPH NODES: No medias tinal mass or fluid collec tion. Normal size medias tinal, hilar, and axilla ry lymph nodes. THORAC IC AORTA: Normal calibe r and config uratio n. PULMON EMILIANO ARTERI ES: Normal calibe r. HEART: Normal heart size. No perica rdial effusi on. Severe esquivel ry artery calcif icatio n. OSSEOU S STRUCT URES AND CHEST WALL: Intact . UPPER ABDOME N: No signif icant abnorm alitie s. IMPRES CHRISTELLE: No signif icant new pulmon emiliano nodule s. Severe esquivel ry artery calcif icatio n. PAGE 1 Signed Report (RACHEL NUED) [facility] Name: [facility]o [facility]AK[facility] Phys: Christina pina MD, [place] [address] : 1964 Age: 59 Sex: M Acct: [id number] Loc: G.CT PHONE #: [phone] Exam Date: 2024 Status : DEP CLI FAX #: Rad# [id number] Unit# [id number] Admit Date: 2024 EXAMS: CPT CODE: [id number] CT CHEST LDCT LUNG SCREEN G0297 Lung-R ADS Catego ry 2: Contin ue annual screen ing with LDCT in 12 months . Electr onical ly signed by: Petrona roman MD 2024 07:52 AM EDT RP Workst ation: [id number] Electr onical ly Signed by PETRONA ROMAN on 2024 at 0746 Report ed and signed by: KESHA ADORNO CK CC: Giovani pina M.D.; Jhony Joyce MD Dictat ed Date/T victor manuel: 2024 (0746) Techno logist : DAVID BELLGIL Y Transc ribed Date/T victor manuel: 2024 (0746) Transc riptio nist: DR.TRE WALDEN Electr onic Signat ure Date/T victor manuel: 2024 (0746) Printe d Date/T victor manuel: 2024 (0756) BATCH NO: N/A PAGE 2 Signed Report CC'ed Logic: Orderi ng Provid er: CHRISTINA DIAS Y Attend ing Provid er: CHRISTINA HERMOSILLORE Y Referr ing Provid er: CHRISTINA HERMOSILLORE Y Consul ting Provid er: DUYEN DAWSON [address] , [place], [address], 03/29/2025 09:06:45 05/19/20 elect rocar diogr am No observ ation record ed. EUNICE [address], [place], [address], 05/19/2025 14:19:28 05/19/20 25 05/19/2025 elect rocar diogr am No observ ation record ed. [email or web address] Not Available 2024 14:47:29 05/24/20 25 05/24/2025 elect debby christopher am inter preta tion* No observ ation record ed. [email or web address] Not Available 2024 08:09:55 Result Notes None recorded. Problems Name Problem SNOMED Code Status Onset Date Resolution Date Notes Provider Name and Address Organization Details Recorded Time Coronary arterioscle rosis 35757565 Active 2021 Manjeet Pelaez NP [address] [place] [address],Iraida te [address] [place] [address], [address], [place] - [facility] - [place] & [place] 2 12:10:25 Essential hypertensio n 74851115 Active 2021 Sawyer Adi null, [place] - [facility] - [place] & [place] 2 13:19:04 Hyperlipide shorty 26527525 Active 2021 Sawyer Adi null, [place] - [facility] - [place] & [place] 2 13:19:07 Atrial fibrillatio n 83799327 Active 2021 Sawyer Adi null, [place] [facility] - [place] & [place] 2 13:19:02 Ventricular premature beats 17047122 Active 2021 Sawyer Adi null, [place] [facility] & [place] 2 13:19:09 Tobacco dependence syndrome 19692611 Active 2021 Manjeet Pelaez NP [address] [place] [address],Iraida te [facility], [place], [address], [place] [facility] & [place] 2 12:11:14 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 to atheroscler osis 6295842350290 9108 Active 2021 Manjeet Pelaez NP [address] [place] [address],[address], [place], [address], [place] [facility] & [place] 2 13:27:08 Nodule of lung 884616108 Active 2021 Manjeet Pelaez NP [address] [place] [address],[address], [place], [address], [place] [facility] & [place] 2 13:27:40 Coronary stent stenosis 108990341 Active 2021 Manjeet Pelaez, ANA ROSA [address] [place] [address],[address], [place], [address], [place] [facility] [place] [facility] & [place] 2 13:28:00 Benign essential hypertensio n 4596794 Active 2021 Manjeet Pelaez, ANA ROSA [address] [place] [address],[address], [place], [address], [place] [facility] - [facility] & [place] 2 13:28:19 Internal carotid artery stenosis 437514444 Active 2021 Manjeet Pelaez, ANA ROSA [facility],[address], [place], [address], [place] [facility] [facility] & [place] 2 14:03:26 Palpitation s 13482906 Active 2021 Manjeet Pelaez, ANA ROSA [facility],[address], [place], [address], [place] [facility] - [facility] & [place] 2 11:11:27 Pulmonary emphysema 15240709 Active 2021 Manjeet Pelaez, ANA ROSA [facility],[address], [place], [address], [place] [facility] - [facility] & [place] 2 08:52:19 Chronic obstructive pulmonary disease 19481895 Active 2022 Messi Greer MD [address] [place] [address],[address], [place], [address], [place] [facility] & [place] 3 01:04:29 Multiple nodules of lung 048568574 Active 2022 Messi Greer MD [address] [place] [address],[address], [place], [address], [place] [facility] & [place] 3 01:04:54 Coronary atheroscler osis 053050552 Active 2022 Manjeet Pelaez NP [address] [place] [address],[address], [place], [address], [place] [facility] & [place] 3 14:15:20 Left ventricular systolic dysfunction 341280951 Active 2023 Manjeet Pelaez NP [address] [place] [address],[address], [place], [address], [place] [facility] & [place] 4 08:55:16 Problem Notes None recorded. Procedures Surgical History Date Name Laterality Status Provider Name and Address Organization Details Recorded Time 025 cardiac catheterization completed Rhonda Fall [place] [facility] - [place] & [place] 05/19/2025 14:13:30 012 Head or Neck Surgery completed Carrie Bryant [place] [facility] & [place] 09/19/2022 13:54:05 011 Back Surgery completed Carrie Bryant [place] [facility] & [place] 09/19/2022 13:54:05 010 Back Surgery completed Carrie IYER - [facility] - [place] & [place] 09/19/2022 13:54:05 cardiac catheterization completed Sawyer Joshi [place] - [facility] - [place] & [place] 08/28/2022 13:19:51 Appendectomy completed Sawyer IYER - [facility] - [place] & [place] 08/28/2022 13:20:13 Back Surgery completed Sawyer Joshi [place] [facility] & [place] 08/28/2022 13:20:20 Imaging Results None recorded. Procedure Notes None recorded. Medical Equipment None Reported. Allergies Allergen ID Allergen Name Allergen Category Reaction Reaction Severity Criticality Documentation Date Start Date Code Code System Note Provider Name and Address Organization Details Recorded Time 61013 Product containin g penicilli n (product) medicatio n Not available Not available Not available 08/28/2022 39487 8001 SNOMED Sawyer yousif, [place] - [facility] - [place] & [place] 09/27/202 2 13:12:28 82119 Sudafed medicatio n Not available Not available Not available 08/28/202226009 2 RxNorm SHIREEN Niño [place] & [place] 2 13:12:35 20573 isosorbid e medicatio n Not available Not available Not available 08/28/2022 6057 RxNorm SHIREEN Niño [place] & [place] 2 13:12:46 59717 metformin medicatio n Not available Not available Not available 01/08/2023 6809 RxNorm SHIREEN Solorz[place] - [place] & [place] 3 08:46:08 Medications Name Sig Start Date Stop Date Status Note LastModified by Organization Details LastModified Time verapamil ER (SR) 120 mg tablet,exte nded release Take 1 tablet every day by oral route. 2024 active Not Available Not Available Not Avai lable atorvastati n 80 mg tablet Take 1 tablet every day by oral route at bedtime for 90 days. active Not Available Not Available No t Available gabapentin 600 mg tablet Take 1 tablet 3 times a day by oral route as needed for 30 days. active Not Available Not Available No t Available ipratropium 0.5 mg-albutero l 3 mg (2.5 mg base)/3 mL nebulizatio n soln Inhale 3 mL every 4 hours by inhalatio n route as needed for 15 days. active Not Available Not Available No t Available tizanidine 4 mg tablet Take 1 tablet 3 times a day by oral route as needed for 30 days. active Not Available Not Available No t Available ondansetron HCl 4 mg tablet 08/28 completed Not Available Not Available Not Available bisoprolol fumarate 10 mg tablet TAKE 2 TABLETS BY MOUTH DAILY. active Not Available Not Available No t Available bisoprolol fumarate 5 mg tablet 08/28 completed Not Available Not Available Not Available methocarbam ol 750 mg tablet 12/06 completed Not Available Not Available Not Available Nitrostat 0.[address] one tablet sublingua lly every 5 minutes as needed for chest pain for three doses. 2024 active Not Available Not Available Not Avai lable hydrocodone 7.5 mg-acetamin ophen 325 mg tablet TAKE 1 TABLET BY MOUTH EVERY 8 HOURS NEEDED FOR PAIN active Not Available Not Available No t Available paroxetine 20 mg tablet Take 1 tablet every day by oral route as directed for 90 days. active Not Available Not Available No t Available pantoprazol e 40 mg tablet,daphney yed release TAKE 1 TABLET BY MOUTH EVERY MORNING FOR 90 DAYS. active Not Available Not Available No t Available metformin 1,000 mg tablet 01/07 completed Not Available Not Available Not Available neomycin-po lymyxin-dex ameth 3.5 mg/mL-10,00 0 unit/mL-0.1 % eye drops 12/06 completed Not Available Not Available Not Available lisinopril 10 mg tablet Take 1 tablet every day by oral route for 90 days. active Not Available Not Available No t Available clonazepam 2 mg tablet Take 1 tablet twice a day by oral route as needed for 30 days. active Not Available Not Available No t Available mupirocin 2 % topical ointment 12/06 completed Not Available Not Available Not Available methylpredn isolone 4 mg tablets in a dose pack 04/15 completed Not Available Not Available Not Available albuterol sulfate HFA 90 mcg/actuati on aerosol inhaler Inhale 2 puffs every 4 hours by inhalatio n route as needed for 30 days. active Not Available Not Available No t Available cefdinir 300 mg capsule 04/15 completed Not Available Not Available Not Available verapamil ER 120 mg 24 hr capsule,ext ended release Take 1 capsule every day by oral route for 30 days. 05/20 completed Not Available Not Available Not Available Benadryl Allergy 25 mg tablet Take 2 tablets every day by oral route at bedtime. active Not Available Not Available No t Available azithromyci n 500 mg tablet 08/28 completed Not Available Not Available Not Available Humulin N NPH U-100 Insulin 15 units 01/07 completed Not Available Not Available Not Available Januvia 100 mg tablet Take 1 tablet every day by oral route. active Not Available Not Available No t Available Lantus Solostar U-100 Insulin 100 unit/mL (3 mL) subcutaneou s pen as directed active Not Available Not Available No t Available Multaq 400 mg tablet Take 1 tablet twice a day by oral route as directed for 30 days. 09/24 completed Not Available Not Available Not Available ticagrelor 90 mg tablet Take 1 tablet every day by oral route for 90 days. active Not Available Not Available No t Available Xarelto 20 mg tablet TAKE 1 TABLET BY MOUTH DAILY WITH FOOD. active Not Available Not Available No t Available Unifine Pentips Plus 31 gauge x 3/16 needle active Not Available Not Available Not Available Jardiance 25 mg tablet Take 1 tablet every day by oral route for 90 days. active Not Available Not Available No t Available Repatha SureClick 140 mg/mL subcutaneou s pen injector INJECT 140MG(1ML ) UNDER THE SKIN EVERY 2 WEEKS active Not Available Not Available No t Available Vraylar 4.5 mg capsule 08/28 completed Not Available Not Available Not Available OneTouch Delica Plus Lancet 33 gauge 08/28 completed Not Available Not Available Not Available Trelegy Ellipta 200 mcg-62.5 mcg-25 mcg powder for inhalation 02/10 completed Not Available Not Available Not Available Vitals Date Recorded Heart rate Provider Name an d Address Organization Details Last Updated DateTime 04/01/2025 70 /min Messi guan MD [address] [place] [address],[address], [place], [address], [facility] & [place] 04/01/2025 09:49:01 Date Recorded Body height Body mass index (BMI) Body weight Oxygen saturation Oxygen saturation in Arterial blood by Pulse oximetry Respiratory rate Systolic blood pressure Diastolic blood pressure Provider Name and Address Organization Details Last Updated DateTime 5 165.1 cm 33.9 kg/m2 02426.8 4 g 100 % 100 % 14 /min 130 mm[Hg] 72 mm[Hg] Ashlyn InMy[facility]willie [facility] & [place] 5 09:43:21 Social History Question Answer Notes LastModified by Organizat ion Details LastModified Time Tobacco Smoking Status Current Every Day Smoker Former 3 PPD, IS CURRENTLY smoking 1/2 PPD Ashlyn Curtis [facility], [facility] & [place] 09/25/2023 15:08:58 Do You Have An Advance Directive? No Information not available 11/12/2023 Are You Blind Or Do You Have Difficulty Seeing? No Information not available 11/12/2023 What Is Your Level Of Caffeine Consumption? None Information not available 11/12/2023 What Was The Date Of Your Most Recent Tobacco Screening? 09/24/2023 Information not available 11/12/2023 What Is Your Current Pack Years? 30ormorepac kyears Information not available 11/12/2023 Are You Passively Exposed To Smoke? Yes [email or web address] Information not available 09/19/2022 How Much Tobacco Do You Smoke? 0.5 PPD [email or web address] Information not available 02/11/2024 Has Tobacco Cessation Counseling Been Provided? No Information not available 11/12/2023 How Many Years Have You Smoked Tobacco? 45 [email or web address] Information not available 09/19/2022 Sex: Male Functional Status Question Answer Note LastModified by Organizat ion Details LastModified Time Do you use any illicit or recreational drugs? Yes [email or web address] Information not available 09/19/2022 Do you or have you ever used any other forms of tobacco or nicotine? No Information not available 11/12/2023 What is your level of alcohol consumption? Occasional [email or web address] Information not available 09/19/2022 Do you or have you ever used smokeless tobacco? Former smokeless tobacco user [email or web address] Information not available 09/19/2022 What is your exercise level? Moderate [email or web address] Information not available 09/19/2022 Mental Status Question Answer Note LastModified by Organization D etails LastModified Time Do you feel stressed (tense, restless, nervous, or anxious, or unable to sleep at night)? [id number] Information not available 11/12/2023 Family History Relationship Description Onset Age of this Age Resolved Age Notes LastModified by Organization Details LastModified Time Father No current problems or disability [email or web address] Not available 08/28 13:19:16 Mother No current problems or disability [email or web address] Not available 08/28 13:19:16 Medical History Condition Response Coronary Artery Disease Y Atrial Fibrillation Y Kidney or Bladder Problems Y GI Problems Y COPD Y Lung Disease Y Chest Pain Y Spine Problems Y Heart Attack (MT) Y Obstructive Sleep Apnea Y Neurological Problems Y Diabetes Y Obesity Y Arthritis Y Hyperlipidemia Y Back Problems Y Substance Abuse Y Shortness of Breath Y Reflux/GERD Y Dizziness or Fainting Y High Cholesterol Y Psychiatric/Mental Health Condition Y Heart Disease Y Arrhythmia Y Headaches Y Hypertension Y Kidney Disease Y Past Encounters Encounter ID Performer Location Encounter Start Date Encounter Closed Date Diagnosis/Indication Diagnosis SNOMED-CT Code Diagnosis ICD10 Code Diagnosis Note [id number] Jeffery Squires MD [facility] [address] [place] [address] 03/08/2025 12:48:38 03/08/2025 13:39:36 Left ventricular systolic dysfunction 927649734 I51.9 Coronary atherosclerosis 272674486 I25.10 Essential hypertension 48211032 I10 Hyperlipidemia 78282725 E78.5 Atrial fibrillation 4943 6004 I48.91 Long-term current use of anticoagulant 949876891 Z79.01 Coronary s tent stenosis 926069389 T82.855A Ventricula r premature beats 66602078 I49.3 Tobacco de pendence syndrome 20399068 F17.424 [id number] Messi Greer [facility] [address] [place] [address] [address] [place] [address] 04/01/2025 09:29:11 04/01/2025 10:05:05 Chronic obstructive pulmonary disease 05637936 J44.9 Pulmonary emphysema 8743 3001 J43.9 Multiple n odules of lung 357191541 R91.8 Health Concerns Section Related Observation LastModified by Organization Detai ls LastModified Time None Recorded Concern Status LastModified by Organization Details LastModified Time None Recorded Payers Encounter Date Sequence Insurance Name Policy Number Policy Antonio Covered Member ID Antonio Member ID Guarantor Name 04/01/2025 1 LEESA-SHIREEN: [employer] [place] [employer] (MEDICARE REPLACEMENT HMO) [id number] Sergio Mars [id number] Sergio Mars Notes Date Note Type Note Provider Name and Address Organization Details Recorded Time text/html 59-year-old male with history of hypertension, hyperlipidemia, coronary disease, atrial fibrillation.Medications in the past have included Klonopin, Xarelto, lisinopril, Zanaflex and gabapentin here for follow up. 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 He states he has lost weight with diet modification.Dyspnea, timing with extreme exertion, and is minimal in severity, relieved with rest. He denies associated fever, chills, weight loss, night sweats, hemoptysis, pleurisy, chest pain, chest pressure, productive sputum, cough, orthopnea, syncope, palpitations, dizziness or PND. Modified Wells criteria 0. [place] of 1. Quality and context sputum is clear, thin, mucousy and rare. 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 Patient does not get sleepy, drowsy, fatigued or fall asleep while driving, he again was warned no driving motorized vehicles or operating heavy machinery while fatigued, sleepy or drowsy , he voiced understanding. He denies fatigue, EDS or hypersomnia. He is improved on albuterol. He has an albuterol nebulizer and inhaler. He was trying to quit smoking, he is down from 3 packs a day for several years (40 years) down to 1/2 PPD.He is disabled and he does not work. No history of COPD or lung cancer in the family. He sees a travel accommodations rater Dr. Squires, states he has 31 stents per patient history. He denies any cardiopulmonary, GI or neurologic complaints today.He again states he is rarely using his nebulizer or his rescue inhaler. He is doing well presently from a cardiopulmonary standpoint he states. He is down to half pack cigarettes a day.He again voices no cardiopulmonary complaints, no GI complaints, and no neurologic complaints today.We tried him on Trelegy, he states his sputum became blue and he discontinued. He feels much better since he is cut his cigarette smoking back. He rarely uses albuterol inhaler or nebulizer. PULMONARY FUNCTION TEST March 2023: FEV1 3.54 or 105% predicted, FVC of 4.70 or 109% predicted FEV1 FVC ratio of 75%, no significant improvement post bronchodilators. CT scan of chest March 09, 2025 as below:Report DetailsPatient Name: SERGIO MARSProcedureDate: 025Gender: Edouard of : 1965 Age 59 yearsPatient ID: [id number]: CT CHEST LDCT LUNG SCREENReferringPhysician:Goran Cameron TextEXAMINATION: CT CHEST WITHOUT CONTRAST SCREENING FOR LUNG CANCER WITH LOW DOSECOMPUTED TOMOGRAPHY (LDCT)CLINICAL INDICATION: Male, 59 years old. LUNG SCREENING.TECHNIQUE: Low dose CT scan of the chest without intravenous contrast. One or more of thefollowing dose reduction techniques were used: Automated exposure control, adjustment of the mAand/or kV according to patient size, and/or iterative reconstruction. Unless otherwise specified,incidental findings do not require dedicated imaging follow-up. [id number].COMPARISON: Diagnostic chest without from March 17, 2024.FINDINGS:LOWER NECK: Visualized thyroid gland and soft tissues are normal.LUNGS AND AIRWAYS: New sub-2 cm ground glass nodule in the right apex on image 57. New sub-4mm average flat density along the pleural surface in the right upper lobe on image 74. There arefew tiny calcified granulomata which are stable. Perifissural nodule in the left lung on image 114stable. No new significant soft tissue pulmonary nodules.PLEURA: No pleural effusion. No pneumothorax. Hemidiaphragms are normally positioned.MEDIASTINUM AND LYMPH NODES: No mediastinal mass or fluid collection. Normal size mediastinal,hilar, and axillary lymph nodes.THORACIC AORTA: Normal caliber and configuration.PULMONARY ARTERIES: Normal caliber.HEART: Normal heart size. No pericardial effusion. Severe coronary artery calcification.OSSEOUS STRUCTURES AND CHEST WALL: Intact.UPPER ABDOMEN: No significant abnormalities.IMPRESSION:A ccession: [id number] Name: SERGIO MARS Account #:No significant new pulmonary nodules. Severe coronary artery calcification.Lung-RADS Category 2: Continue annual screening with LDCT in 12 months.Electronically signed by: Petrona Ramachandran MD 03/10/2025 07:52 AM EDT Workstation:[id number] anscribed Date: 03/10/2025 7:46 AMTranscribed By:Reported by: Danae RAMACHANDRANgned by: PETRONA RAMACHANDRANDateSigned:03/10/2025 7:46 CT SCAN OF CHEST MARCH 17, 2024 BELOW:COMPARISON: 03/19/23 and older studies dating back to 01/30/22FINDINGS:Thyroid and soft tissues: No significant abnormalityHeart and mediastinum: Dense three-vessel coronary artery calcification and stenting as before.Heart size at upper limits of normal. No pericardial effusion or pathologic adenopathy.Abdomen: Benign cortical cyst noted left hepatic lobe.Lungs: Mild emphysema. Multiple stable noncalcified and calcified nodules in the bilateral lungs. Nonew or enlarging nodules no infiltrate or effusion.Osseous elements: Mechanical fusion of T7 through T10 as before. No aggressive osseous lesionsIMPRESSION: Study limited by non-contrast technique.1. Mild emphysema with noncalcified and calcified pulmonary nodules stable since 01/30/22 andtherefore benign, requiring no further workup.2. No acute cardiopulmonary abnormality.3. Dense three-vessel coronary artery calcification and stenting as before. Presence of coronaryartery calcification is statistically associated with increased risk of cardiovascular events.Communication: Per this written report.NOTE: Management/follow-up of any incidental pulmonary nodules will be based on the [facility] criteria.Any incidentally noted liver lesions equal to or less than 5 mm, cystic lesions in the kidneysless than 1 cm, and/or adrenal lesions equal to or less than 1 cm, generally are considered highlylikely to be benign and no additional evaluation is recommended, unless specificallymentioned in the impression.This report is generated using voice recognition computer software. Inadvertent errors may haveoccurred while dictating report. Common sense approach is appreciated and do not hesitate to callfor clarification when necessary.Transcribed Date: 03/17/2024 9:59 AMTranscribed By: Dylon SteinReported by: Dylon SteinSigned by: Dylon SteinDateSigned: 9:59 CT SCAN OF CHEST DONE MARCH 19, 2023 BELOW:Comparison: 09/07/2022 and 08/11/2021Findings:Stable prominent right subcarinal node. Measured 1.1 cm in short axis dimension. Borderlineenlarged right hilar node, about the same. Measures 0.9 cm in short axis dimension. No enlargedleft hilar or axillary nodes are identified. Coronary artery calcifications and stenting, again noted.Heart size is normal. No significant pericardial fluid/thickening. No pleural fluid.Visualized portions of the upper abdomen included in this examination of the chest show a coupleof sub-centimeters low densities of the liver left lobe, too small to characterize but of doubtfulclinical significance.Lung window images show subtle mosaic attenuation of both upper lobes, left greater than right,probably air trapping secondary to small airways disease. Mild emphysema, about the same. 6 mmsubpleural nodule in the right upper lobe on image #32, 5 mm nodule along the left major fissure onimage #57, and a couple of smaller nodules along the right minor fissure on image #58, stable.Interval resolution of the previously seen new 5 mm groundglass nodule of the right upper lobe. Milddependent atelectasis of both upper and lower lobes. No consolidation or significant groundglass.Bone window images show no significant lytic or sclerotic bone lesions. Surgical fixation posteriorlyof the mid and lower thoracic spine, again noted.IMPRESSION:1. Interval resolution of the previously seen new 5 mm groundglass nodule of the right upper lobe.2. Several 6 mm and smaller nodules bilaterally, stable since August 2021. A final follow-up CTchest in one year is recommended.3. Stable mildly enlarged subcarinal node and prominent right hilar node, secondary to oldgranulomatous disease.Note: Recommendations for follow-up of incidental pulmonary nodules are based on [facility] criteria.Transcribed Date: 03/19/2023 1:00 PMTranscribed By: Heron SoriaReported by: Heron SoriaSigned by: Heron SoriaDateSigned: 3 1:00 CT scan of chest done September 07, 2022 as below:COMPARISON: 01/30/2022 at 08/11/2021FINDINGS: Imaging of the low neck and axilla is unremarkable. Heart size mildly enlarged withextensive coronary artery stenting in 3 vessel distribution. No pericardial effusion. Scattered lymphnodes again noted within the mediastinum and joe. Stable borderline enlarged subcarinal lymphnode. No new lymph nodes. Aorta and great vessels unremarkable.Mild emphysema. Lungs not well inflated, producing bronchovascular crowding.. New 4 5 mmgroundglass nodule right upper lobe image 17. Calcified granulomatous disease as before. Severalstable 5 mm or smaller noncalcified pulmonary nodules in the bilateral lung berrios.Limited imaging upper abdomen is again notable for hepatomegaly and hepatic steatosis. Noaggressive osseous lesions. Mechanical fusion of the mid thoracic spine as before.IMPRESSION: 1. Mild emphysema with multiple stable 5 mm arch smaller noncalcified pulmonarynodules in the bilateral lung berrios.2. New 4-5 mm groundglass nodule in the right upper lobe probably infectious/inflammatory.3. Stable borderline enlarged subcarinal lymph node. No new adenopathy.4. No acute cardiopulmonary abnormality.Recommend follow-up standard protocol head CT chest in 6 months.NOTE: Management/follow-up of any incidental pulmonary nodules will be based on the [facility] criteria.Any incidentally noted liver lesions equal to or less than 5 mm, cystic lesions in the kidneysless than 1 cm, and/or adrenal lesions equal to or less than 1 cm, generally are considered highlylikely to be benign and no additional evaluation is recommended, unless specificallymentioned in the impression.This report is generated using voice recognition computer software. Inadvertent errors may haveoccurred while dictating report. Common sense approach is appreciated and do not hesitate to callfor clarification when necessary.Transcribed Date: 09/07/2022 2:42 PMTranscribed By: Dylon SteinReported by: Dylon SteinSigned by: Dylon SteinDateSigned: 2 2:42 This note was completed using a dictation system. We do our best to minimize mistakes by this dictation system, but some dictation system mistakes cannot be identified. If something does not make sense and/ or appears in error please do not hesitate to contact our office. We can correct the record and/ or clarify for you.The patient was warned no driving motorized vehicles or operating heavy machinery while fatigued, sleepy or drowsy, he voiced understanding and he stated he would not.Patient was instructed to read the side effect package profile very carefully on all medications prescribed, and to stop medications immediately and go to ER if the patient has any problems, the patient voiced understanding. Patient was instructed to go over side effects /adverse effects / drug interactions with all of the prescribed and [id number] medications with a pharmacist, the patient again voiced understanding. The patient was instructed to go to ER if the patient does not continue to improve or worsens, he again voiced understanding.Patient was warned if the patient does not follow up with the CT scan of chest as recommended, and follow-up with results of CT scan chest with another aircraft instrument engineer or PCP, this may result in future ill health, sickness, and even , he again voiced understanding. I gave him a copy of his most recent CT scan chest March 2025 to take with him today to his primary care provider and/ or another aircraft instrument engineer.Patient again was instructed to follow-up with primary care provider and/or travel accommodations rater for dense/severe coronary artery calcifications as this could result in immediate ill health, sickness, and , he again voiced understanding and stated he would follow up, he sees Dr Squires. He states he has [address] scan chest results with patient in detail from March 2025, I answered all of his questions, he had no further questions. I told him his new and other abnormalities on his most recent CT scan of chest March 2025 could be cancer, infection, inflammation, and/or other lung disorders, he voiced understanding.He declines any further pulmonary/thoracic diagnostic procedures at the present time for abnormalities noted on most recent CT scan of chest March 2025. He declines bronchoscopy, CT lung biopsy, and/or surgical biopsy/ resection of abnormalities noted on most recent CT scan of chest March 2025 , however he is in agreement to a repeat CT scan of chest in 3 months or June 2025 with his primary care provider and/ or another aircraft instrument engineer, he states he will discuss with Dr. Joyce today his primary care provider at [facility].I told the patient to follow-up with his primary care provider immediately for abnormalities noted on his previous CT scan in his abdomen /small liver lesions, he voiced understanding and he stated he would follow-up with Dr. Joyce for this. I previously and again gave the patient a copy of his most recent CT scan of chest.I told the patient I will be retiring April 2025, the patient voiced understanding.The patient was instructed to follow-up with their primary care provider and/or a aircraft instrument engineer/sleep physician for all their future pulmonary needs/ issues/meds and all of their sleep needs/issues/meds, the patient voiced understanding. The patient was also instructed to follow-up with their primary care provider and/ or a aircraft instrument engineer for all recommended future CT scans of the chest, the patient voiced understanding. I told the patient their lack of follow-up with recommended future CT scans of chest could result in future ill health, sickness, , the patient again voiced understanding.He voiced understanding of all the above.We gave him a copy of his alpha 1 antitrypsin order which I previous ordered but was not done, he states he will obtain this lab through another aircraft instrument engineer and/or his primary care provider Dr. Joyce. Messi Greer MD [address] [place] [address],[address], [place], [place], [address], [place] - [facility] - [place] & [place] 04/04/2025 12:00:22
--- OUTSIDE RECORDS SUMMARY | 2025-05-26 11:01 | XMS_ITS | Data Portability ---
Author Organization [facility] Address [address] [place] [address] Care Team Providers Care Program Analyst Name Role Phone DUYEN JHONY Primary Care Provider [phone] Assessment Encounter Date Assessment Date Assessment LastModified by Organization Details LastModified Time 12/11/2017 12/11/2017 Redness around vertebral prominence Reviewed consult note from Dr.Hatfield le Not available 12/11/2017 15:28:33 05/13/2018 05/13/2018 Spine surgery course reviewed CAD multiple stents 21 stents total dyslipidemia Elevated Trigs Low HDL intol Niacin Rx Zanaflex 4 mg 1 po TID prn Smoking cessation discussed at length [email or web address] Not available 05/13/2018 16:23:19 07/07/2018 07/07/2018 Adopted 1/2 ppd Stents RCA x 3 CIRC occluded CABG discussed Previously on Metformin stopped taking Chronic pain Rx Synjardy 04/1000 BID RTC 1 month [email or web address] Not available 07/11/2018 15:49:47 07/21/2018 07/21/2018 dM2 poor control EKG Angina intol ntg 100% circ occlusion numerous stents 650 ASA sent to ER F/U ngallenstein Not available 07/22/2018 13:57:21 08/01/2018 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 Lab HbA1c (hemogl obin A1c), blood 2017 018 [facility], [address] [place], [address], 8 13:49:24 glucose , fingers tick, blood 2017 018 [facility], [address] [place], [address], 8 13:49:24 Referral None recorde d. Procedures None recorde d. Surgeries None recorde d. Imaging electro cardiog maria 2017 018 [facility], [address] [place], [address], 8 07:51:40 XR, lumbar spine 2017 018 [facility], [address] [place], [address], 8 15:32:00 XR, cervica l spine 2017 018 [facility], [address] [place], [place] [address] [place], [address], 8 19:54:54 XR, thoraci c spine, 2 view 2017 018 [facility], [address] [place], [address], 8 19:54:54 Medication Orders Synjard y 5 mg-1,00 0 mg tablet 2017 018 [facility], [address] [place] [address], [address], 8 15:37:42 Zanafle x 4 mg tablet 2017 018 [facility], [address] [place] [address], [address], 8 19:07:18 Skelaxi n 800 mg tablet 2017 018 [email or web address] [facility], [address] [place] [address], [address], 8 18:28:22 clindam ycin HCl 300 mg capsule 2017 018 [place] [address] [facility], [address] [place] [address], [address], 8 14:15:51 Bactrim DS 800 mg-160 mg tablet 2017 018 [place] [address] [facility], [address] [place] [address], [address], 8 14:15:47 Patient TargetsNo targets recorded. Patient Instructions Encounter Date Encounter Id Patient Instructions Last Modified By Organization Details Last Modified Time 12/11/2017 [id number] cellulitis: care instructions sneus Not available 12/11/2017 19:54:54 A healthy lifestyle: care instructions sneus Not available 12/11/2017 19:54:54 05/13/2018 [id number] Quitting Tobacco : Care Instructions sneus Not available 05/13/2018 14:28:51 A healthy lifestyle: care instructions sneus Not available 05/13/2018 19:07:18 07/07/2018 [id number] Quitting Tobacco : Care Instructions sneus Not available 07/14/2018 08:12:51 smoking cessatio n counseling, greater than 3 minutes up to 10 minutes* [email or web address] Not available 07/18/2018 08:56:40 07/21/2018 [id number] chest pain: care instructions sneus Not available 07/22/2018 07:44:05 hospital discharge follow up* [email or web address] Not available 07/29/2018 08:42:38 08/01/2018 [id number] abdominal pain: care instructions sneus Not available 08/12/2018 14:01:49 Reason for Referral None Reported. Results Created Date Observation Date Name Description Value Unit Range Abnormal Flag Note LastModifiedBy Organization Detail LastModifiedTime 07/07/20 18 07/07/2018 gluco se, aspen rstic k, blood Blood Glucose: mg/dl 286 Not Available [address] [place], [address], 07/07/2018 13:08:41 07/07/20 18 07/07/2018 HbA1c (hemo globi n A1c), blood HbA1c 8.8 Not Available [address] [place], [address], 07/07/2018 13:08:40 01/14/20 17 01/14/2017 hemog lobin (Hb), aspen barnestic k, blood HGB 16.5 Not Available [address] [place], [address], 01/14/2017 17:22:01 07/21/20 18 07/21/2018 elect rocar diogr am Rate & Rhythm normal Not Available [address] [place], [address], 07/21/2018 19:28:03 12/11/19 18 12/11/2017 XR, cervi zuleyka spine No observ ation record ed. [address] [place], [address], 05/13/2018 16:15:26 12/11/19 18 12/11/2017 XR, thora cic spine , 2 view No observ ation record ed. [address] [place], [address], 05/13/2018 16:15:26 05/13/20 18 05/13/2018 XR, lumba r spine No observ ation record ed. [place] [address] [place], [address], 05/13/2018 16:15:26 08/01/20 18 08/01/2018 CT, abdom en + pelvi s, w/ contr ast No observ ation record ed. [email or web address] [facility] [address], [place], [address], 08/20/2018 09:14:40 Result Notes None recorded. Problems Name Problem SNOMED Code Status Onset Date Resolution Date Notes Provider Name and Address Organization Details Recorded Time Angina pectoris 843156634 Active Ashlyn Hooper RN [address], [place], [address] [facility] [place] - [facility] 8 13:13:52 History of cardiac catheteri zation 763008031117 00 Active 2017 Crystal Abdoulaye null, [place] - [facility] 8 09:46:47 Nicotine dependenc e 79255631 Active 2017 Crystal Abdoulaye null, [place] - [facility] 8 09:46:47 Typical angina 367482545 Active Crystal Abdoulaye null, [place] - [facility] 8 12:51:54 Abdominal pain 60156685 Active 2017 Crystal Abdoulaye null, [place] - [facility] 8 09:46:47 Preinfarc tion syndrome 1609722 Active Crystal Abdoulaye null, [place] - [facility] 8 09:46:47 Coronary atheroscl erosis 410575923 Active 2016 Crystal Abdoulaye null, [place] - [facility] 8 09:46:47 Chronic back pain 263726969 Active 2016 Crystal Abdoulaye null, [place] - [facility] 8 09:46:47 Spasm of back muscles 029081184 Active 2016 Crystal Abdoulaye [place], [place] - [facility] 8 09:46:47 Essential hypertens ion 99877955 Active 2016 Crystal Abdoulaye null, [place] - [facility] 8 09:46:47 Mixed hyperlipi demia 778013731 Active 2016 SHIREEN Conway - [facility] 8 09:46:47 Obesity 761267724 Active 2016 SHIREEN Conway [facility] 8 09:46:47 Renewal of prescript ion Completed 201605/13/2018 Nicci Hunt in SHIREEN [place] - [facility] 8 16:15:17 Problem Notes Documentation Provider Name and Address Organization Details Recorded Time Cardiology Note : [place] [address] PATIENT NAME: SERGIO MARS UNIT NO.: [id number] ATTENDING DOC: Marisol Orantes ROOM NO.: G.214 ADMISSION DATE: 07/17/18 LOCATION: [facility] BIRTHDATE: [birth year] ACCT NUM: [id number] ____ CONSULTATION REPORT DATE OF CONSULTATION: 07/17/2018 CONSULTING PHYSICIAN: Jeffery Squires MD REFERRING PHYSICIAN: NO PRIMARY CARE PHYSICIAN This is Manjeet Latanya dictating for Dr. Squires as his scribe in his presence per his recommendations. REPORT: CARDIOLOGY CONSULT BODY: REFERRING PHYSICIAN: Razia Jaimes APRN. CHIEF COMPLAINT: Chest pain. HISTORY OF PRESENT ILLNESS: The patient is a 52-year-old gentleman, who presented to the emergency room last night with mid substernal chest pressure without radiation, but he did have some associated shortness of breath. It is moderate in intensity. Nothing seemed to make it better or worse. He ended up getting some nitroglycerin in the emergency room which did improve some of his symptoms, but did not completely resolve it. This morning, he is asymptomatic. He has no chest pain or shortness of breath. Today, he is feeling better at this point. He does have a history of in-stent restenosis and recently underwent cardiac catheterization in June with stent to his right coronary artery. He does have 99-100% occlusion of the circumflex artery which is an old finding. This is being treated medically. He does continue to smoke. He denies any PND, orthopnea, claudication, syncope, dizziness, edema, or palpitations except as noted above. His cardiac enzymes have been negative. He has not had any EKG changes today. REVIEW OF SYSTEMS: GENERAL: Denies any weight gain, weight loss, changes in appetite or difficulty sleeping. HEENT: No photophobia, photosensitivity or changes in vision. No tinnitus, otalgia, no rhinitis, epistaxis, no sore throat or dysphagia. NECK: No trauma, injury or stiffness. CARDIOVASCULAR: As above. RESPIRATORY: No chronic cough, hemoptysis or wheezing. GASTROINTESTINAL: No abdominal pain, nausea, vomiting or diarrhea. No hematochezia, hematemesis or melena. GENITOURINARY: No anuria, dysuria, frequency or hematuria. SERGIO MARS [id number] CONSULTATION REPORT Continued... -- SKIN: No rashes, lesions or pruritus. ENDOCRINE: No hot or cold intolerance, no polyuria or polydipsia. MUSCULOSKELETAL: No arthralgias, myalgias, weakness or fatigue. NEUROLOGIC: No ataxia, vertigo or dizziness. PSYCHIATRIC: No changes in mood, affect, depression or anxiety. PAST MEDICAL HISTORY: 1. Paroxysmal atrial fibrillation. 2. Chronic back pain. 3. Gastroesophageal reflux disease. 4. Coronary artery disease. 5. Hypertension. 6. Hyperlipidemia. 7. Duodenal ulcer. 8. Diastolic dysfunction. 9. Hypertensive heart disease. 10.Diabetes. 11.Previous myocardial infarction. 12.Spinal stenosis. 13.Previous subdural hematoma. 14.Chronic angina. SOCIAL HISTORY: He smokes half pack a day. He denies any alcohol abuse. He is . FAMILY HISTORY: He was adopted. SURGICAL HISTORY: 1. Cardiac catheterization with stenting. 2. Back surgery. 3. Tonsillectomy. 4. Ear surgery. ALLERGIES: 1. Mold. 2. Pseudoephedrine. HOME MEDICATIONS: 1. Nicotine patch 21 mg daily. 2. Zanaflex 4 mg 3 times a day. 3. Brilinta 90 mg twice a day. 4. Nitroglycerin sublingual p.r.n. 5. Lipitor 20 mg at bedtime. 6. Cardizem 180 mg at bedtime. 7. Lisinopril 40 mg twice a day. 8. Niacin 500 mg at bedtime. 9. Aspirin 81 mg daily. 10.Zantac 150 twice a day. 11.Jardiance 10 mg a day. 12.Metformin 500 mg twice a day. 13.Multivitamin daily. SERGIO MARS [id number] CONSULTATION REPORT Continued... -- DIAGNOSTIC STUDIES: EKG shows sinus rhythm with a rate of 59 with poor R-wave progression. PHYSICAL EXAMINATION: VITAL SIGNS: Temperature 97.6, pulse 60, respirations 20, blood pressure 125/67, pulse oximetry 98%. LABORATORY DATA: White blood cell count 16.7, red blood cell count 5.26, hemoglobin 14.8, hematocrit 43.6, platelets 227. Chemistry panel shows sodium 136, potassium 4.8, chloride 103, CO2 of 29, anion gap 16.8, BUN 17 and creatinine is 1.51. Glucose 158, triglycerides 322, total cholesterol 131, LDL is 45 and HDL 22. Cardiac enzymes are negative x3. Chest x-ray was unremarkable. EXAM: GENERAL: This is a 52-year-old gentleman, alert, oriented, in no apparent distress. Pleasant affect. HEENT: Head normocephalic, pupils reactive to light, no proptosis, no ptosis. Ears are symmetrical bilaterally. Nasal mucosa is pink. The oropharynx is clear without cyanosis. NECK: Supple without lymphadenopathy, no thyromegaly, no jugular venous distention, no carotid bruit, brisk carotid upstroke. The trachea is midline. HEART: Normal S1 and S2, no murmurs, rubs, gallops, or heaves. Normal PMI. Regular rate and rhythm. LUNGS: Clear to auscultation and percussion bilaterally. Good inspiratory and expiratory effort. Respirations are easy and nonlabored. No apparent distress. ABDOMEN: Positive bowel sounds. The abdomen is soft, nontender, no organomegaly, no hepatojugular reflux. There is no abdominal bruit, mass, rigidity, tenderness, guarding or rebound. MUSCULOSKELETAL: No kyphosis or scoliosis. EXTREMITIES: No cyanosis, clubbing or edema. SKIN: Warm and dry. NEUROLOGIC: Unremarkable without focality. PSYCHIATRIC: No changes in mood, affect, depression or anxiety. DIAGNOSTIC STUDIES: Last echocardiogram dated June 16, 2018, shows an ejection fraction of 50% with some diastolic dysfunction. His valves were normal. Last cardiac catheterization, June 16, 2018: He underwent stenting to his right coronary artery for in-stent restenosis. His LAD had 30% proximal stenosis and diffuse 20-30% mid and distal stenosis in his LAD as well. His circumflex had 20% proximal stenosis and stents prior to the obtuse marginal which were open. He did have a 99% stenosis in that obtuse marginal branch with in-stent restenosis. He had 100% in-stent restenosis in the proximal mid vessel as well. At that time, he had a proximal right coronary stenosis which was 70% followed by 99% in-stent restenosis and this stent was repaired. He had stenting to the in-stent restenosis in his right coronary artery. Otherwise, he had nothing else requiring intervention. We are managing his severe circumflex disease medically. IMPRESSION: 1. Angina pectoris- myocardial infarction ruled out. SERGIO MARS [id number] CONSULTATION REPORT Continued... -- 2. Coronary artery disease with history of in-stent restenosis-stable. 3. Diastolic dysfunction. 4. Hypertensive heart disease. 5. Hyperlipidemia. 6. Diabetes. 7. Tobacco abuse. RECOMMENDATIONS: 1. Decrease lisinopril 10 mg twice a day. 2. Add isosorbide 30 mg daily for treatment of his angina. This will be maximal medical therapy. 3. Continue other medications. 4. Continue aspirin and Brilinta. 5. Tobacco cessation discussed. 6. Continue nicotine patch at home. 7. No further recommendations at this point. He does not need any invasive cardiac testing at this time. We will continue to maximize medical therapy and see him back in the office in the next couple of weeks for recheck. At this point, he is asymptomatic and stable to be discharged home from a cardiovascular standpoint. DICTATED BY: BRADFORD Yung MD AMK/KIANA /[id number] at 0838 , Manjeet Pelaez APRN DATE TIME DICT D 1106 TRANS D 1205 BY: JOSE CC'ed Logic: CC Provider: PHYSICIAN OTHER Attending Provider: LIYA DIAZ Referring Provider: PHYSICIAN NO Consulting Provider: DUYEN Spicer Admitting Provider: SHIREEN Rawls - [facility] 07/22/2018 13:55:13 Cardiology Note : [place] [address] PATIENT NAME: SERGIO MARS UNIT NO.: [id number] ATTENDING DOC: Teddy Greer MD ROOM NO.: G.219 ADMISSION DATE: 06/16/18 LOCATION: [facility] BIRTHDATE: [birth year] ACCT NUM: [id number] ____ CONSULTATION REPORT DATE OF CONSULTATION: 06/16/2018 CONSULTING PHYSICIAN: Jeffery Squires MD REFERRING PHYSICIAN: EDOUARD PRIMARY CARE PHYSICIAN ADDENDUM: Place at the end of the note [id number]. The patient was seen and examined by me. I agree with the above assessment and plan. DICTATED BY: Jeffery Squires MD ERL/MODL /[id number] at 0743 Signature on File 07/22/18 0743 , Jeffery Squires MD DATE TIME DICT D 1253 TRANS D 2043 BY: JOSE CC'ed Logic: CC Provider: PHYSICIAN OTHER Attending Provider: BRIGID BENDER Referring Provider: PHYSICIAN EDOUARD Consulting Provider: DUYEN Spicer Admitting Provider: BRIGID Paige [place], [place] - [facility] 07/22/2018 13:55:13 Cardiology Note : [place] [address] PATIENT NAME: SERGIO MARS UNIT NO.: [id number] ATTENDING DOC: Marisol Orantes ROOM NO.: G.214 ADMISSION DATE: 07/17/18 LOCATION: [facility] BIRTHDATE: [birth year] ACCT NUM: [id number] ____ CONSULTATION REPORT DATE OF CONSULTATION: 07/17/2018 CONSULTING PHYSICIAN: Jeffeyr Squires MD REFERRING PHYSICIAN: NO PRIMARY CARE PHYSICIAN This is Manjeet Latanya dictating for Dr. Squires as his scribe in his presence per his recommendations. REPORT: CARDIOLOGY CONSULT BODY: REFERRING PHYSICIAN: Razia Jaimes APRN. CHIEF COMPLAINT: Chest pain. HISTORY OF PRESENT ILLNESS: The patient is a 52-year-old gentleman, who presented to the emergency room last night with mid substernal chest pressure without radiation, but he did have some associated shortness of breath. It is moderate in intensity. Nothing seemed to make it better or worse. He ended up getting some nitroglycerin in the emergency room which did improve some of his symptoms, but did not completely resolve it. This morning, he is asymptomatic. He has no chest pain or shortness of breath. Today, he is feeling better at this point. He does have a history of in-stent restenosis and recently underwent cardiac catheterization in June with stent to his right coronary artery. He does have 99-100% occlusion of the circumflex artery which is an old finding. This is being treated medically. He does continue to smoke. He denies any PND, orthopnea, claudication, syncope, dizziness, edema, or palpitations except as noted above. His cardiac enzymes have been negative. He has not had any EKG changes today. REVIEW OF SYSTEMS: GENERAL: Denies any weight gain, weight loss, changes in appetite or difficulty sleeping. HEENT: No photophobia, photosensitivity or changes in vision. No tinnitus, otalgia, no rhinitis, epistaxis, no sore throat or dysphagia. NECK: No trauma, injury or stiffness. CARDIOVASCULAR: As above. RESPIRATORY: No chronic cough, hemoptysis or wheezing. GASTROINTESTINAL: No abdominal pain, nausea, vomiting or diarrhea. No hematochezia, hematemesis or melena. GENITOURINARY: No anuria, dysuria, frequency or hematuria. SERGIO MARS [id number] CONSULTATION REPORT Continued... -- SKIN: No rashes, lesions or pruritus. ENDOCRINE: No hot or cold intolerance, no polyuria or polydipsia. MUSCULOSKELETAL: No arthralgias, myalgias, weakness or fatigue. NEUROLOGIC: No ataxia, vertigo or dizziness. PSYCHIATRIC: No changes in mood, affect, depression or anxiety. PAST MEDICAL HISTORY: 1. Paroxysmal atrial fibrillation. 2. Chronic back pain. 3. Gastroesophageal reflux disease. 4. Coronary artery disease. 5. Hypertension. 6. Hyperlipidemia. 7. Duodenal ulcer. 8. Diastolic dysfunction. 9. Hypertensive heart disease. 10.Diabetes. 11.Previous myocardial infarction. 12.Spinal stenosis. 13.Previous subdural hematoma. 14.Chronic angina. SOCIAL HISTORY: He smokes half pack a day. He denies any alcohol abuse. He is . FAMILY HISTORY: He was adopted. SURGICAL HISTORY: 1. Cardiac catheterization with stenting. 2. Back surgery. 3. Tonsillectomy. 4. Ear surgery. ALLERGIES: 1. Mold. 2. Pseudoephedrine. HOME MEDICATIONS: 1. Nicotine patch 21 mg daily. 2. Zanaflex 4 mg 3 times a day. 3. Brilinta 90 mg twice a day. 4. Nitroglycerin sublingual p.r.n. 5. Lipitor 20 mg at bedtime. 6. Cardizem 180 mg at bedtime. 7. Lisinopril 40 mg twice a day. 8. Niacin 500 mg at bedtime. 9. Aspirin 81 mg daily. 10.Zantac 150 twice a day. 11.Jardiance 10 mg a day. 12.Metformin 500 mg twice a day. 13.Multivitamin daily. SERGIO MARS [id number] CONSULTATION REPORT Continued... -- DIAGNOSTIC STUDIES: EKG shows sinus rhythm with a rate of 59 with poor R-wave progression. PHYSICAL EXAMINATION: VITAL SIGNS: Temperature 97.6, pulse 60, respirations 20, blood pressure 125/67, pulse oximetry 98%. LABORATORY DATA: White blood cell count 16.7, red blood cell count 5.26, hemoglobin 14.8, hematocrit 43.6, platelets 227. Chemistry panel shows sodium 136, potassium 4.8, chloride 103, CO2 of 29, anion gap 16.8, BUN 17 and creatinine is 1.51. Glucose 158, triglycerides 322, total cholesterol 131, LDL is 45 and HDL 22. Cardiac enzymes are negative x3. Chest x-ray was unremarkable. EXAM: GENERAL: This is a 52-year-old gentleman, alert, oriented, in no apparent distress. Pleasant affect. HEENT: Head normocephalic, pupils reactive to light, no proptosis, no ptosis. Ears are symmetrical bilaterally. Nasal mucosa is pink. The oropharynx is clear without cyanosis. NECK: Supple without lymphadenopathy, no thyromegaly, no jugular venous distention, no carotid bruit, brisk carotid upstroke. The trachea is midline. HEART: Normal S1 and S2, no murmurs, rubs, gallops, or heaves. Normal PMI. Regular rate and rhythm. LUNGS: Clear to auscultation and percussion bilaterally. Good inspiratory and expiratory effort. Respirations are easy and nonlabored. No apparent distress. ABDOMEN: Positive bowel sounds. The abdomen is soft, nontender, no organomegaly, no hepatojugular reflux. There is no abdominal bruit, mass, rigidity, tenderness, guarding or rebound. MUSCULOSKELETAL: No kyphosis or scoliosis. EXTREMITIES: No cyanosis, clubbing or edema. SKIN: Warm and dry. NEUROLOGIC: Unremarkable without focality. PSYCHIATRIC: No changes in mood, affect, depression or anxiety. DIAGNOSTIC STUDIES: Last echocardiogram dated June 16, 2018, shows an ejection fraction of 50% with some diastolic dysfunction. His valves were normal. Last cardiac catheterization, June 16, 2018: He underwent stenting to his right coronary artery for in-stent restenosis. His LAD had 30% proximal stenosis and diffuse 20-30% mid and distal stenosis in his LAD as well. His circumflex had 20% proximal stenosis and stents prior to the obtuse marginal which were open. He did have a 99% stenosis in that obtuse marginal branch with in-stent restenosis. He had 100% in-stent restenosis in the proximal mid vessel as well. At that time, he had a proximal right coronary stenosis which was 70% followed by 99% in-stent restenosis and this stent was repaired. He had stenting to the in-stent restenosis in his right coronary artery. Otherwise, he had nothing else requiring intervention. We are managing his severe circumflex disease medically. IMPRESSION: 1. Angina pectoris- myocardial infarction ruled out. SERGIO MARS [id number] CONSULTATION REPORT Continued... -- 2. Coronary artery disease with history of in-stent restenosis-stable. 3. Diastolic dysfunction. 4. Hypertensive heart disease. 5. Hyperlipidemia. 6. Diabetes. 7. Tobacco abuse. RECOMMENDATIONS: 1. Decrease lisinopril 10 mg twice a day. 2. Add isosorbide 30 mg daily for treatment of his angina. This will be maximal medical therapy. 3. Continue other medications. 4. Continue aspirin and Brilinta. 5. Tobacco cessation discussed. 6. Continue nicotine patch at home. 7. No further recommendations at this point. He does not need any invasive cardiac testing at this time. We will continue to maximize medical therapy and see him back in the office in the next couple of weeks for recheck. At this point, he is asymptomatic and stable to be discharged home from a cardiovascular standpoint. DICTATED BY: BRADFORD Yung MD AMK/KARMIEL /[id number] at 1057 at 0838 , Latanya Manjeet FELDER DATE TIME DICT D 1106 TRANS D 1205 BY: JOSE CC'ed Logic: CC Provider: PHYSICIAN OTHER Attending Provider: LIYA DIAZ Referring Provider: PHYSICIAN NO Consulting Provider: DUYEN Spicer Admitting Provider: SHIREEN Dunn - [facility] 07/23/2018 19:57:19 Cardiology Note : [place] [address] PATIENT NAME: SERGIO MARS UNIT NO.: [id number] ATTENDING DOC: Marisol Orantes ROOM NO.: G.214 ADMISSION DATE: 07/17/18 LOCATION: [facility] BIRTHDATE: [birth year] ACCT NUM: [id number] ____ CONSULTATION REPORT DATE OF CONSULTATION: 07/17/2018 CONSULTING PHYSICIAN: Jeffery Squires MD REFERRING PHYSICIAN: NO PRIMARY CARE PHYSICIAN ADDENDUM: The patient was seen and examined by me. I agree with the above assessment and plan. DICTATED BY: MD HALIMA Corado/KARIMEL /[id number] at 1425 Signature on File 07/30/18 1425 , Jeffery Squires MD DATE TIME DICT D 1442 TRANS D 1745 BY: JOSE CC'ed Logic: CC Provider: PHYSICIAN OTHER Attending Provider: LIYA DIAZ Referring Provider: PHYSICIAN NO Consulting Provider: DUYEN Spicer Admitting Provider: LIYA [place], [place] - [facility] 08/01/2018 14:05:00 Procedures Surgical History Date Name Laterality Status Provider Name and Address Organization Details Recorded Time Stent, coated/cov w/del sys completed [facility] [place] - [facility] 01/14/2017 16:56:01 Back Surgery completed [facility] [place] [facility] 01/14/2017 16:56:07 Appendectomy completed [facility] [place] [facility] 01/14/2017 17:15:06 tonsilectomy/imtiaz oids completed [facility] [place] [facility] 01/14/2017 17:15:17 Unlisted px accessory sinus completed [facility] [place] [facility] 01/14/20 17 17:15:47 Imaging Results None recorded. Procedure Notes None recorded. Medical Equipment None Reported. Allergies Allergen ID Allergen Name Allergen Category Reaction Reaction Severity Criticality Documentation Date Start Date Code Code System Note Provider Name and Address Organization Details Recorded Time 12546 Sudafed medicatio n Not available Not available Not available 09/07/20162008 2 RxNorm Not Available [facility] 6 08:41:00 [id number] Product containin g penicilli n (product) medicatio n Not available Not available Not available 09/07/20162007 18183 [id number] ERON Hooper RN [address], [place], [address] [facility] [place] [facility] 8 13:13:31 Medications Name Sig Start Date Stop Date Status Note LastModified by Organization Details LastModified Time cyclobenz aprine 10 mg tablet TAKE 1 TABLET BY MOUTH THREE TIMES DAILY NEEDED. 2016 active Not Available Not Available Not Avai lable atorvasta tin 20 mg tablet Take 1 tablet every day by oral route at bedtime. 2017 active Not Available Not Available Not Avai lable clindamyc in HCl 300 mg capsule Take 1 capsule twice a day by oral route for 10 days. 05/13 completed Not Available Not Available Not Available aspirin 325 mg tablet take 1 tablet (325 mg) by oral route once daily 06/08 completed aspirin 325 mg oral tablet;R ecorded Status: Recorded on: 12/21/19 16 11:21AM; Disconti nued Status: Disconti nued on: 06/08/20 16 12:18PM; User: neuss Not Available Not Available Not Available diltiazem malate ER 180 mg tablet,ex tended release 24 hr active Not Available Not Available Not Available lisinopri l 20 mg tablet take 1 tablet by oral route daily 12/24 completed lisinopr il 20 mg oral tablet;R ecorded Status: Recorded on: 01/26/20 11 8:45AM;D iscontin ued Status: Disconti nued on: 12/24/19 12 9:46AM;U ser: neuss;Es t. Completi on: 02/26/20 11;Indic ation: Hyperten melvin - (07.4019 00) Not Available Not Available Not Available prednison e 20 mg tablet Take 4(four) per daily for five(5) days 01/26 completed predniso ne 20 mg oral tablet;R ecorded Status: Recorded on: 01/26/20 10 2:37PM;D iscontin ued Status: Disconti nued on: 01/26/20 11 8:45AM;U ser: [email or web address]; Est. Completi on: 02/01/20 10;Print ed: 01/26/20 10 Not Available Not Available Not Available isosorbid e mononitra te ER 30 mg tablet,ex tended release 24 hr 2017 active Not Available Not Available Not Avai lable Niaspan 500 mg tablet,ex tended release take 1 tablet (500 mg) by oral route once daily at bedtime after a low-fat snack for 30 days 02/22 completed Niaspan Extended -Release 500 mg oral tablet extended release 24 hr;Recor ded Status: Recorded on: 01/26/20 11 8:45AM;D iscontin ued Status: Disconti nued on: 02/23/20 11 4:37PM;U ser: neuss;In dication : High Density Lipoid Deficien cy - (03.2725 02) Not Available Not Available Not Available Phenergan 25 mg tablet take 1 tablet (25 mg) by oral route once daily repeated at 4 to 6 hour interval s, as necessar y 01/02 completed Phenerga n 25 mg oral tablet;R ecorded Status: Recorded on: 08/18/20 09 11:34AM; Disconti nued Status: Disconti nued on: 01/02/20 10 10:45AM; User: isaak;In dication : Nausea and Vomiting - (16.7870 10) Not Available Not Available Not Available Zithromax Z-Rasheed 250 mg tablet Take as Directed 07/04 completed Zithroma x Z-Rasheed 250 mg oral tablet;R ecorded Status: Recorded on: 09/04/20 08 10:03PM; Disconti nued Status: Disconti nued on: 07/04/20 09 8:40AM;U ser: keefk Not Available Not Available Not Available Ultram 50 mg tablet take 1-2 tablets by oral route every 4-6 hours as needed 01/26 completed Ultram 50 mg oral tablet;R ecorded Status: Recorded on: 01/02/20 10 10:53AM; Disconti nued Status: Disconti nued on: 01/26/20 11 8:45AM;U ser: [email or web address]; Est. Completi on: 01/12/20 10;Indic ation: Pain - (16.7809 00) Not Available Not Available Not Available Flonase 50 mcg/actua tion nasal spray,ector pension one spray to each nostril BID 07/04 completed Flonase 50 mcg/actu ation nasal spray,simmons spension ;Recorde d Status: Recorded on: 09/04/20 08 10:05PM; Disconti nued Status: Disconti nued on: 07/04/20 09 8:40AM;U ser: keefk Not Available Not Available Not Available Plavix 75 mg tablet take 1 tablet (75 mg) by oral route once daily 01/02 completed Plavix 75 mg oral tablet;R ecorded Status: Recorded on: 07/04/20 09 8:40AM;D iscontin ued Status: Disconti nued on: 01/02/20 10 10:45AM; User: andrusa Not Available Not Available Not Available simvastat in 40 mg tablet take 1 tablet (40 mg) by oral route once daily in the evening 06/08 completed simvasta tin 40 mg oral tablet;R ecorded Status: Recorded on: 08/17/20 14 4:23PM;D iscontin ued Status: Disconti nued on: 06/08/20 16 12:18PM; User: isaak;Millie morris. Completi on: 09/16/20 14;Indic ation: Mixed Hyperlip idemia - (2722 ) Not Available Not Available Not Available isosorbid e mononitra te ER 120 mg tablet,ex tended release 24 hr take 1 tablet (120 mg) by oral route once daily in the morning 07/21 completed isosorbi de mononitr ate 120 mg oral tablet extended release 24 hr;Recor ded Status: Recorded on: 06/08/20 16 12:18PM; User: isaak;In dication : Chronic Stable Angina Pectoris - (4139 ) Not Available Not Available Not Available Niaspan 1,000 mg tablet,ex tended release take 1 tablet (1,000 mg) by oral route once daily at bedtime after a low-fat snack for 30 days 2015 active Niaspan Extended -Release 1,000 mg oral tablet extended release 24 hr;Recor ded Status: Recorded on: 06/08/20 16 1:22PM;U ser: [email or web address];Es t. Completi on: 05/04/20 17 Not Available Not Available Not Available Zanaflex 4 mg tablet Take 1 tablet 3 times a day by oral route as needed. 2017 active Not Available Not Available Not Avai lable Lipitor 40 mg tablet take 1 tablet (40 mg) by oral route once daily 01/02 completed Lipitor 40 mg oral tablet;R ecorded Status: Recorded on: 07/04/20 09 8:40AM;D iscontin ued Status: Disconti nued on: 01/02/20 10 10:45AM; User: andrusa Not Available Not Available Not Available ranitidin e 75 mg tablet take 1 tablet by oral route 2 times a day 12/11 completed ranitidi ne HCl 75 mg oral tablet;R ecorded Status: Recorded on: 12/21/19 16 11:21AM; Disconti nued Status: Disconti nued on: 06/08/20 16 12:18PM; User: isaak;In dication : Gastroes ophageal Reflux - (5308 ) Not Available Not Available Not Available lorazepam 2 mg tablet 1/2-1 po q 8-12 hours prn 01/26 completed lorazepa m 2 mg oral tablet;R ecorded Status: Recorded on: 08/18/20 09 11:34AM; Disconti nued Status: Disconti nued on: 01/26/20 11 8:45AM;U ser: neuss;Es t. Completi on: 12/16/19 10;Indic ation: Anxiety - (053000 00) Not Available Not Available Not Available gemfibroz il 600 mg tablet 01/04 completed Not Available Not Available Not Available paroxetin e 20 mg tablet take 1 tablet by oral route daily 12/21 completed paroxeti ne HCl 20 mg oral tablet;R ecorded Status: Recorded on: 12/28/19 15 12:51PM; Disconti nued Status: Disconti nued on: 12/21/19 16 11:22AM; User: isaak;Es t. Completi on: 06/26/20 15;Indic ation: Anxiety with Depressi on - (053004 01) Not Available Not Available Not Available ranitidin e 150 mg tablet Take 1 tablet twice a day by oral route. 2016 active Not Available Not Available Not Avai lable hydrocodo ne 7.5 mg-acetam inophen 750 mg tablet take 1 tablet by oral route every 6 hours as needed 06/08 completed hydrocod one-acet aminophe n 7.5-750 mg oral tablet;R ecorded Status: Recorded on: 08/18/20 13 8:55PM;D iscontin ued Status: Disconti nued on: 06/08/20 16 12:18PM; User: neuss;Millie t. Completi on: 09/17/20 13 Not Available Not Available Not Available Robaxin-7 50 750 mg tablet take 2 tablets (1,500 mg) by oral route 3 times per day for 30 days 12/21 completed Robaxin- 750 750 mg oral tablet;R ecorded Status: Recorded on: 05/04/20 14 12:49PM; Disconti nued Status: Disconti nued on: 12/21/19 16 11:21AM; User: neuss;Millie t. Completi on: 07/03/20 14 Not Available Not Available Not Available lisinopri l 10 mg tablet Take 1 tablet every day by oral route in the evening for 90 days. 2017 active Not Available Not Available Not Avai lable nicotine 21 mg/24 hr daily transderm al patch 2017 active Not Available Not Available Not Avai lable nitroglyc cem 0.4 mg sublingua l tablet place 1 tablet (0.4 mg) by buccal route at the first sign of an attack; no more than 3 tabs are recommen ded within a 15 minute period. 2015 active nitrogly cerin 0.4 mg sublingu al tablet, sublingu al;Recor ded Status: Recorded on: 12/21/19 16 11:21AM; User: neuss Not Available Not Available Not Available niacin ER 500 mg capsule,e xtended release take 2 capsules (1,000 mg) by oral route once daily at bedtime 12/24 completed niacin 500 mg oral capsule, extended release; Recorded Status: Recorded on: 02/23/20 11 4:37PM;D iscontin ued Status: Disconti nued on: 12/24/19 12 8:43AM;U ser: [email or web address]; Est. Completi on: 03/24/20 11;Indic ation: High Density Lipoid Deficien cy - (2725 ) Not Available Not Available Not Available Betapace 80 mg tablet take 0.5 tablet by oral route 2 times a day for 30 days 07/04 completed Betapace 80 mg oral tablet;R ecorded Status: Recorded on: 06/20/20 09 7:54PM;D iscontin ued Status: Disconti nued on: 07/04/20 09 8:40AM;U ser: bishopk; Est. Completi on: 05/16/20 10;Indic ation: Ventricu lar Arrhythm ias - (4279 ) Not Available Not Available Not Available hydrochlo rothiazid e 25 mg tablet 1 po qD 07/04 completed hydrochl orothiaz pavel 25 mg oral tablet;R ecorded Status: Recorded on: 09/04/20 08 10:04PM; Disconti nued Status: Disconti nued on: 07/04/20 09 8:40AM;U ser: keefk Not Available Not Available Not Available Baby Aspirin 81 mg chewable tablet Chew 1 tablet every day by oral route. active Not Available Not Available No t Available Ecotrin 325 mg tablet,en teric coated take 1 tablet (325 mg) by oral route once daily 01/02 completed Ecotrin 325 mg oral tablet,d elayed release (DR/EC); Recorded Status: Recorded on: 07/04/20 09 8:40AM;D iscontin ued Status: Disconti nued on: 01/02/20 10 10:45AM; User: andrusa Not Available Not Available Not Available Valium 10 mg tablet take 1 tablet by oral route daily as needed 07/07 completed Valium 10 mg oral tablet;R ecorded Status: Recorded on: 01/26/20 11 8:45AM;D iscontin ued Status: Disconti nued on: 07/07/20 13 3:18PM;U ser: neuss;In dication : Muscle Spasm - (13.7288 50) Not Available Not Available Not Available Anusol-HC 25 mg rectal supposito ry one pr BID 07/04 completed Anusol-H C 25 mg rectal supposit ory;Harry rded Status: Recorded on: 09/04/20 08 10:02PM; Disconti nued Status: Disconti nued on: 07/04/20 09 8:40AM;U ser: keefk Not Available Not Available Not Available Percocet 5 mg-325 mg tablet take 1 tablet by oral route every 6 hours as needed 07/07 completed Percocet 5-325 mg oral tablet;R ecorded Status: Recorded on: 01/26/20 11 8:45AM;D iscontin ued Status: Disconti nued on: 07/07/20 13 3:18PM;U ser: neuss;In dication : Pain - (27.0776 84) Not Available Not Available Not Available lisinopri l 40 mg tablet 06/16 completed Not Available Not Available Not Available lisinopri l 2.5 mg tablet take 1 tablet by oral route daily 01/26 completed lisinopr il 2.5 mg oral tablet;R ecorded Status: Recorded on: 06/20/20 10 4:14PM;D iscontin ued Status: Disconti nued on: 01/26/20 11 8:45AM;U ser: bishopk; Est. Completi on: 07/20/20 10;Indic ation: Hyperten melvin - (91.0329 22) Not Available Not Available Not Available buspirone 15 mg tablet 01/04 completed Not Available Not Available Not Available Bactrim DS 800 mg-160 mg tablet Take 1 tablet every 12 hours by oral route for 10 days. 05/13 completed Not Available Not Available Not Available Fish Oil Concentra te 1,000 mg capsule take 1 capsule by oral route daily 12/21 completed Fish Oil Concentr ate 1,000 mg oral capsule; Recorded Status: Recorded on: 01/21/20 15 9:01AM;D iscontin ued Status: Disconti nued on: 12/21/19 16 11:21AM; User: neuss Not Available Not Available Not Available Skelaxin 800 mg tablet 1 po BID -TID prn 07/01 completed Not Available Not Available Not Available metoprolo l tartrate 25 mg tablet take 1 tablet (25 mg) by oral route 2 times per day 2015 active metoprol ol tartrate 25 mg oral tablet;R ecorded Status: Recorded on: 12/27/19 16 3:33PM;U ser: neuss;In dication : Hyperten melvin - (07.4019 00) Not Available Not Available Not Available Fish Oil 07/07 completed Fish Oil Oral;Rec orded Status: Recorded on: 06/05/20 11 11:05AM; Disconti nued Status: Disconti nued on: 07/07/20 13 3:18PM;U ser: vesth Not Available Not Available Not Available Colace 07/07 completed Colace Oral;Rec orded Status: Recorded on: 06/05/20 11 11:05AM; Disconti nued Status: Disconti nued on: 07/07/20 13 3:18PM;U ser: vesth Not Available Not Available Not Available Neurontin 07/07 completed Neuronti n Oral;Rec orded Status: Recorded on: 06/05/20 11 11:05AM; Disconti nued Status: Disconti nued on: 07/07/20 13 3:18PM;U ser: vesth Not Available Not Available Not Available Sotalol 40mg qd 01/02 completed Sotalol Oral;Rec orded Status: Recorded on: 07/04/20 09 8:40AM;D iscontin ued Status: Disconti nued on: 01/02/20 10 10:45AM; User: andrusa Not Available Not Available Not Available amlodipin e 10 mg-benaze pril 40 mg capsule take 1 capsule by oral route once daily 2015 active amlodipi ne-benaz epril 10-40 mg oral capsule; Prescrib e Status: Prescrib ed on: 05/21/20 16 1:59PM;U ser: neuss;Es t. Completi on: 11/17/20 16;Pharm acyVerif ied: 05/21/20 16 1:59PM Not Available Not Available Not Available Bystolic 10 mg tablet take 1 tablet (10 mg) by oral route once daily for 30 days 12/28 completed Bystolic 10 mg oral tablet;R ecorded Status: Recorded on: 09/11/20 13 10:42AM; Disconti nued Status: Disconti nued on: 12/28/19 15 12:51PM; User: neuss;Es t. Completi on: 03/10/20 14;Indic ation: Hyperten melvin - (4019 00) Not Available Not Available Not Available Effient 10 mg tablet take 1 tablet (10 mg) by oral route once daily 06/18 completed Effient 10 mg oral tablet;R ecorded Status: Recorded on: 12/21/19 16 11:21AM; User: isaak;In dication : Thrombos is Preventi on after PCI - (4539 14) Not Available Not Available Not Available Brilinta 90 mg tablet Take 1 tablet twice a day by oral route. active Not Available Not Available No t Available Synjardy 5 mg-1,000 mg tablet Take 1 tablet twice a day by oral route. 2017 active Not Available Not Available Not Avai lable Vitals Date Recorded Body height Body mass index (BMI) Body weight Heart rate Respiratory rate Systolic blood pressure Diastolic blood pressure Provider Name and Address Organization Details Last Updated DateTime 8 170.18 cm 35.1 kg/m2 572616. 69 g 92 /min 18 /min 150 mm[Hg] 88 mm[Hg] Beth Aguirre [place] [facility] 8 14:59:51 Date Recorded Body height Body mass index (BMI) Body weight Heart rate Respiratory rate Systolic blood pressure Diastolic blood pressure Provider Name and Address Organization Details Last Updated DateTime 8 170.18 cm 35.1 kg/m2 191806. 69 g 88 /min 18 /min 130 mm[Hg] 90 mm[Hg] Beth Agiurre [facility] 8 14:15:07 Date Recorded Body height Body mass index (BMI) Body weight Body temperature Heart rate Oxygen saturation Oxygen saturation in Arterial blood by Pulse oximetry Respiratory rate Systolic blood pressure Diastolic blood pressure Provider Name and Address Organization Details Last Updated DateTime 8 170.18 cm 36 kg/m2 063901. 25 g 98.3 [degF] 74 /min 98 % 98 % 18 /min 122 mm[Hg] 82 mm[Hg] Beth Aguirre [facility] 8 13:02:01 Date Recorded Body height Body mass index (BMI) Body weight Heart rate Oxygen saturation Oxygen saturation in Arterial blood by Pulse oximetry Respiratory rate Systolic blood pressure Diastolic blood pressure Provider Name and Address Organization Details Last Updated DateTime 8 170.18 cm 36.5 kg/m2 286198. 02 g 72 /min 98 % 98 % 18 /min 132 mm[Hg] 80 mm[Hg] [facility] 19:26:22 Date Recorded Body height Body mass index (BMI) Body weight Heart rate Respiratory rate Systolic blood pressure Diastolic blood pressure Provider Name and Address Organization Details Last Updated DateTime 8 170.18 cm 37 kg/m2 343118. 8 g 64 /min 18 /min 100 mm[Hg] 60 mm[Hg] [facility] 8 15:13:14 Social History Question Answer Notes LastModified by Organizat ion Details LastModified Time Tobacco Smoking Status Current Every Day Smoker Not Available [facility] 09/16/2020 03:17:09 Hard Of Hearing Or Deaf In One Or Both Ears? No [email or web address] Information not available 01/14/2017 Legally Blind In One Or Both Eyes? No [email or web address] Information no t available 01/14/2017 What Was The Date Of Your Most Recent Tobacco Screening? 07/21/2018 [id number] Information not available 09/16/2020 What Is Your Relationship Status? [id number] Information not available 09/16/2020 Smoke Alarm In Home Yes [email or web address] Information not available 01/14/2017 Sex: Unknown Functional Status Question Answer Note LastModified by Organization D etails LastModified Time Are you currently employed? No [id number] Information not available 09/16/2020 Are you able to care for yourself? Yes [id number] Information not available 09/16/2020 What is your occupation? disabled [id number] Information not available 09/16/2020 What is your exercise level? None [id number] Information not available 09/16/2020 Mental Status None recorded. Family History Nothing Reported Notes:adopted Medical History No medical history recorded. Past Encounters Encounter ID Performer Location Encounter Start Date Encounter Closed Date Diagnosis/Indication Diagnosis SNOMED-CT Code Diagnosis ICD10 Code Diagnosis Note [id number] [facility] [address] [place] [address] 04/09/2008 00:00:00 [id number] [facility] [address] [place] [address] [address] 04/21/2008 00:00:00 [id number] [facility] [address] [place] [address] 05/10/2008 00:00:00 [id number] [facility] [address] [place] [address] 05/27/2008 00:00:00 [id number] [facility] [address] [place] [address] 09/11/2013 00:00:00 [id number] [facility] [address] [place] [address] 08/17/2014 00:00:00 [id number] [facility] [address] [place] [address] 12/28/2014 00:00:00 [id number] [facility] [address] [place] [address] 01/11/2015 00:00:00 [id number] [facility] [address] [place] [address] 06/22/2015 00:00:00 [id number] [facility] [address] [place] [address] 12/21/2015 00:00:00 [id number] [facility] [address] [place] [address] 06/08/2016 00:00:00 [id number] [facility] [address] [place] [address] 05/27/2008 00:00:00 [id number] [facility] [address] [place] [address] 06/16/2009 00:00:00 [id number] [facility] [address] [place] [address] 07/04/2009 00:00:00 [id number] [facility] [address] [place] [address] 08/15/2009 00:00:00 [id number] [facility] [address] [place] [address] 01/02/2010 00:00:00 [id number] [facility] [address] [place] [address] 06/08/2016 00:00:00 [id number] [facility] [address] [place] [address] 01/26/2010 00:00:00 [id number] [facility] [address] [place] [address] 01/26/2011 00:00:00 [id number] [facility] [address] [place] [address] 06/05/2011 00:00:00 [id number] [facility] [address] [place] [address] 12/24/2011 00:00:00 [id number] [facility] [address] [place] [address] 02/01/2012 00:00:00 [id number] [facility] [address] [place] [address] 07/07/2013 00:00:00 [id number] [facility] [address] [place] [address] 08/18/2013 00:00:00 [id number] [facility] [address] [place] [address] 09/11/2013 00:00:00 [id number] Jhony Joyce MD [address] [place] [address] 01/14/2017 16:12:26 01/15/2017 07:58:44 Abdominal pain 09358835 R10.9 Hematochezia 257105548 K 92.1 [id number] Jhony Joyce MD [address] [place] [address] 12/11/2017 13:59:53 12/11/2017 15:59:05 Body mass index 30+ - obesity 812442449 Z68.39 Chronic back pain 711340 002 G89.29 Cellulitis 841975707 L03 .90 [id number] Jhony Joyce MD [address] [place] [address] 05/13/2018 13:58:29 05/13/2018 15:27:58 Chronic back pain 304064331 G89.29 Spasm of back muscles 20 4882065 M62.830 Nicotine dependence 5629 4008 F17.200 Body mass index 30+ - obesity 164639797 Z68.39 [id number] Jhony Joyce MD [address] [place] [address] 07/07/2018 12:41:38 07/07/2018 14:44:31 Angina pectoris 915748078 I20.9 History of cardiac catheterization 7904857234 9100 Z98.890 Hyperglycemia 61857179 R 73.01 Diabetes mellitus 478224 09 E11.9 Nicotine dependence 5629 4008 F17.606 [id number] Jhony Joyce MD [address] [place] [address] 07/21/2018 16:10:37 07/22/2018 08:32:40 Coronary atherosclerosis 922261568 I25.10 Chest pain 39958041 R07. 9 [id number] Jhony Joyce MD [address] [place] [address] 08/01/2018 14:29:47 08/01/2018 17:16:35 Chronic back pain 484552302 G89.29 Spasm of back muscles 20 8694893 M62.830 Diabetes mellitus 839508 09 E11.9 Abdominal pain 28174377 R10.9 Health Concerns Section Related Observation LastModified by Organization Detai ls LastModified Time None Recorded Concern Status LastModified by Organization Details LastModified Time None Recorded Advance Directives Directive None Recorded Payers Insurance Date Sequence Insurance Name Policy Number Policy Antonio Covered Member ID Antonio Member ID Guarantor Name 08/19/2018 1 [place] Sergio Mars [id number] Sergio Mars 08/19/2018 [employer] [place] [place] [facility] (MEDICARE) Sergio Mars [id number] Sergoi Mars 08/19/2018 1 [employer] Sergio Mars [id number] Sergio Mars Notes Date Note Type Note Provider Name and Address Organization Details Recorded Time 12/11/19 18 text/htm l Back PainReported bypatient.Location:cervical; thoracic; lumbar; chronic Quality:varies Severity:worsening Duration:chronic Onset/Timing:years Context:prior back problems; used medications for back pain; had evaluations by back specialist; surgery Aggravating Factors:twisting; extending back Associated Symptoms:no fever; no incontinence; no shortness of breath; no unintentional weight loss; no chills infected area on back in area of back surgery SHIREEN [place] - [facility] 01/08/2018 16:45:05 05/13/20 18 text/htm l Back PainReported bypatient.Location:lumbar; sacral; thinks hardware in back may have slipped Quality:sharp Severity:worsening Duration:chronic with acute worsening Context:prior back problems; used medications for back pain; had evaluations by back specialist; noted surgery by medical terrorist Chani Alleviating Factors:nothing has noticed change recent Aggravating Factors:movement/positioning; twisting; extending back Associated Symptoms:no fever; no tingling; no incontinence; no shortness of breath; no unintentional weight loss; no chills; no night sweats; no bowel/bladder symptoms; no recent increase in stress Nicci Martinezkvng benja SHIREEN [facility] 05/13/2018 16:23:55 07/07/20 18 text/htm l Coronary Artery Disease F/UReported bypatient.Severity:symptoms are improving; no chest discomfort with daily activities; has not needed to use Nitroglycerin Context:smoker Associated Symptoms:no chest pain; no neck pain; no left arm pain; no dyspnea with exertion; no sweating; no nausea; no stress Patient had 3 stints placed in his RCA on 06/16/2018. His blood glucose has been running high today it was 286 fasting and his A1C was 8.8 Nicci Martinezkvng benja SHIREEN [facility] 07/11/2018 15:50:47 07/21/20 18 text/htm l Coronary Artery Disease F/UReported bypatient.Severity:symptoms are worsening;chest discomfort with household activities/yard work; cannot use isorsobide or ntg due to severe headaches that last Context:smoker Associated Symptoms:chest pain with exertion R shoulder and arm pain and abnormal renal labs Nicci Royal yousif SHIREEN [facility] 07/22/2018 13:57:37 08/01/20 18 text/htm l Abdominal PainReported bypatient.Location:RUQ; radiating Quality:cramping;aching Severity:moderate Duration:intermittent Onset/Timing:wax/wane Context:still has gall bladder Modifying Factors:laying down Associated Symptoms:no shortness of breath; no constipation; no change in stool; normal appetite; no weight gain; no weight lossDiabetes F/UReported bypatient.Labs:last A1C result: 8.8; 07/07/18 Context:not missing doses of medications; no side effects from medicationsMusculoskeletal PainReported bypatient.Location:chronic joint and back pain Quality:varies Severity:same Duration:present for >12 months Timing:chronic with frequent worsening Context:prior back problems; used medication for back pain; had evaluations by back specialist; previous surgery; previous MRI; back surgeon on trial for malpractice Alleviating factors:rest; relieved by changing position Aggravating factors:movement/positioning; bending over; twisting Associated Symptoms:no fever; no weak limbs; radiculopathy ADL (Activities of Daily Living)improve with medication Jhony Neus null, [place] - [facility] 08/12/2018 14:02:03
--- OUTSIDE RECORDS SUMMARY | 2025-05-26 11:01 | XMS_ITS | Clinical Summary ---
Author Organization [facility] [employer] Address [address] [place] [address] Care Team Providers Care Mainspring Torque Tester Name Role Phone Jhony Joyce MD Primary Care Provider [phone] Social History Tobacco Use Types Packs/Day Years Used Date Smoking Tobacco: Never Assessed Interpersonal Safety Answer Date Record ed Family or friends hurt you Not on file 12/21 Family or friends insult you Not on file Family or friends threaten you Not on file 0 12/21/2023 Family or friends scream or curse at you Not on file 12/21/2023 Housing Stability Answer Date Recorded Living situation today Not on file Living situation problems Not on file 2023 Food Insecurity Answer Date Recorded Food run out past 12 months Not on file 12/03 Food did not last past 12 months Not on file 12/21/2023 Employment Answer Date Recorded Help finding and keeping a job Not on file 0 12/21/2023 Family and Community Support Answer Gilmer e Recorded Help with Day to Day Activities Not on file 12/21/2023 Feeling Lonely or Isolated Not on file 12/21 Educational Attainment Answer Date Harry rded Speak language other than Citizen Of [place] at home Not on file 12/21/2023 Want help with school or training Not on file 12/21/2023 Depression Answer Date Recorded PHQ-2 Risk Not on file 12/21/2023 Disabilities Answer Date Recorded Difficulty concentrating Not on file 024 Difficulty doing errands alone Not on file 0 12/21/2023 Substance Use Answer Date Recorded Used prescription meds for non-medical reasons N ot on file 12/21/2023 Used illegal drugs past 12 months Not on file 12/21/2023 Sex and Gender Information Value Date Recorded Sex Assigned at Not on file Legal Sex Male 9:[address] Gender Identity Not on file Sexual Orientation Not on file Plan of Treatment Health Maintenance Due Date Last Done Comments Medicare Initial AWV G0438 CT Colonography 1966 Colonoscopy 1966 Colorectal Cancer Screening 1966 FOBT/FIT 1966 Fit-DNA (Cologuard) 1966 Sigmoidoscopy 1966 Depression Screening (12+) 1978 Tobacco Cessation Counseling and Screening (12+) 1978 HIV Screening 1981 Hepatitis C Screening 1984 DTAP/TDAP/TD VACCINES (1 - Tdap) 1985 Lipid Panel 2001 Shingles Vaccine (Zoster) (1 of 2) 2016 Pneumococcal 50+ years (2 of 2 - PCV) 10/17/2021, 05/10/2017 COVID-19 VACCINE ( - season) 2024 Influenza Vaccine (Season Ended) [address] [place], [place] [address]Debitos [facility] MEDICAID OF [place] Care Teams Mainspring Torque Tester Relationship Specialty Start Date End Date Jhony Joyce MD [address] [place] [address] PCP - General Family Medicine 02/04/23
--- OUTSIDE RECORDS SUMMARY | 2025-05-26 11:01 | XMS_ITS | Continuity of Care Document ---
Author Organization [place] - [facility] - [place] & [place], [facility] Address [address] [place] [address] Care Team Providers Care Tandem Operator Name Role Phone CRISTIANO GELLER Primary Care Provider Assessment Encounter Date Assessment Date Assessment LastModified by Organization Details LastModified Time 05/19/2025 05/19/2025 Patient Educatio n was printed, I have reviewed the Past Medical, Family, and Social Histories along with ROS and all orders in today's record, and have noted any changes. Medications, charts and records reviewed in full today. - EKG today reveals sinus rhythm with a rate of 74 beats per minute, negative T-waves, abnormal EKG. Blood pressure 142/90, heart rate 74, weight 211.6 lb. Oxygen saturation is 97% on room air. - LAST ECHO: 05/2025 revealed normal LVEF 55% to 60% with qplm-qf-bjgoykqj LVH and Doppler evidence of impaired relaxation of the left ventricle. Mild mitral insufficiency. LAST ISCHEMIC EVAL: None on file. LAST HEART CATH: 05/2025 revealed severe 100% occlusion InStent of the left circumflex and its distal portion with xhql-sw-zwev collaterals filling the vessel. Severe branch vessel disease noted in the mid 1st diagonal branch of the left anterior descending. Patent stents throughout the proximal/mid/dist al large dominant right coronary artery. Moderate smooth InStent stenosis of the midportion of the right coronary artery stents. Patent stents throughout the 1st obtuse marginal branch left circumflex, and posterolateral branch with the right coronary artery. Patent stents throughout the proximal/mid LAD. Borderline normal LVEF. Normal LVEDP. - Plan: Consider referral to chronic occlusion specialists. Continue Xarelto and Brilinta. Start verapamil. Follow-up in 2 to 3 months. Follow-up sooner if symptoms persist or worsen. EKG at follow-up. - -Continue other current medications. -Continue aggressive risk factor modification. -Recommend LDL less than 55. -Encouraged regular exercise and activity. - This note was dictated using Vertro software. If something is unclear, or does not make sense, please do not hesitate to contact our office at [phone] for clarification. [email or web address] Not available 05/20/2025 16:49:04 Plan of Treatment Reminders Order Date Submit Date Provider Last Modified By Organization Details Last Modified Time Details Appointments OV EST 30 2024 01:00P M REE DUNHAM NP, S Not available Not available Not available OV EST 30 2024 01:30P M OLIVIA GEORGES NP Not available Not available Not available Lab None recorded. Referral None recorded. Procedures None recorded. Surgeries None recorded. [facility]ca [facility]diogram [email or web address] [address], [place], [address], 05/19/2025 14:45:06 Medication Orders verapamil ER 120 mg 24 hr capsule,e xtended release 2024 025 [facility], [address] [place] [address], [id number], 05/20/2025 09:57:41 Nitrostat 0.4 mg sublingua l tablet 2024 025 [facility], [address] [place] [address], [id number], 05/19/2025 15:49:16 Patient TargetsNo targets recorded. Patient InstructionsNo instructions recorded. Reason for Referral None Reported. Results Created Date Observation Date Name Description Value Unit Range Abnormal Flag Note LastModifiedBy Organization Detail LastModifiedTime 05/19/20 25 elect rocpolo diogr am No observ ation record ed. EUNICE Juarez [address], [place], [address], 05/19/2025 14:19:28 05/19/20 25 05/19/2025 elect rocar diogr am No observ ation record ed. [email or web address] Not Available 2024 14:47:29 05/24/20 25 05/24/2025 elect rocar diogr am inter preta tion* No observ ation record ed. [email or web address] Not Available 2024 08:09:55 Result Notes None recorded. Problems Name Problem SNOMED Code Status Onset Date Resolution Date Notes Provider Name and Address Organization Details Recorded Time Coronary arterioscle rosis 38302803 Active 2021 Manjeet Pelaez NP [facility],[address], [place], [address], [place] - [facility] [place] & [place] 2 12:10:25 Essential hypertensio n 48628255 Active 2021 Sawyer Black[place] null, [place] - [facility] [place] 2 13:19:04 Hyperlipide shorty 13807279 Active 2021 Sawyer Adi null, [place] - [facility] [place] 2 13:19:07 Atrial fibrillatio n 66993231 Active 2021 Sawyer Adi null, [place] [facility] [place] 2 13:19:02 Ventricular premature beats 74197027 Active 2021 Sawyer [place] null, [place] [facility] [place] 2 13:19:09 Tobacco dependence syndrome 97324124 Active 2021 Manjeet Pelaez NP 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,[address], [place], [address], [place] [facility] & [place] 2 13:27:08 Nodule of lung 134977523 Active 2021 Manjeet Pelaez, ANA ROSA [address] [place] [address],[address], [place], [address], [place] [facility] & [place] 2 13:27:40 Coronary stent stenosis 511800545 Active 2021 Manjeet Pelaez, ANA ROSA [address] [place] [address],[address], [place], [address], [place] [facility] & [place] 2 13:28:00 Benign essential hypertensio n 8775619 Active 2021 Manjeet Pelaez NP [facility],[address], [place], [address], [place] [facility] & [place] 2 13:28:19 Internal carotid artery stenosis 081815724 Active 2021 Manjeet Pelaez NP [facility],[address], [place], [address], [place] [facility] & [place] 2 14:03:26 Palpitation s 98104547 Active 2021 Manjeet Pelaez, ANA ROSA [facility],[address], [place], [address], [place] [facility] [place] & [place] 2 11:11:27 Pulmonary emphysema 42546150 Active 2021 Manjeet Pelaez NP [facility],[address], [place], [address], [place] [facility] & [place] 2 08:52:19 Chronic obstructive pulmonary disease 53104061 Active 2022 Messi Greer MD [address] [place] [address],[address], [place], [address], [place] [facility] & [place] 3 01:04:29 Multiple nodules of lung 145430194 Active 2022 Messi Greer MD [address] [place] [address],[address], [address], [place] [facility] [place] 3 01:04:54 Coronary atheroscler osis 729492467 Active 2022 Manjeet Pelaez NP [address] [place] [address],[address], [address], [place] [facility] [place] 3 14:15:20 Left ventricular systolic dysfunction 738611533 Active 2023 Manjeet Pelaez NP [address] [place] [address],[address], [address], [place] [facility] [place] & [place] 4 08:55:16 Problem Notes None recorded. Procedures Surgical History Date Name Laterality Status Provider Name and Address Organization Details Recorded Time 025 cardiac catheterization completed Rhonda Fall [place] [facility] [place] 05/19/2025 14:13:30 012 Head or Neck Surgery completed Carrie Bryant [place] [facility] [place] 09/19/2022 13:54:05 011 Back Surgery completed Carriejovanny Bryant [place] [facility] [place] 09/19/2022 13:54:05 010 Back Surgery completed Carriejovanny Bryant [place] [facility] [place] 09/19/2022 13:54:05 cardiac catheterization completed Sawyer Joshi [place] - [facility] [place] 08/28/2022 13:19:51 Appendectomy completed Sawyer Joshi [place] [facility] [place] 08/28/2022 13:20:13 Back Surgery completed Sawyer Adi [place] - [facility] & [place] 08/28/2022 13:20:20 Imaging Results None recorded. Procedure Notes None recorded. Medical Equipment None Reported. Allergies Allergen ID Allergen Name Allergen Category Reaction Reaction Severity Criticality Documentation Date Start Date Code Code System Note Provider Name and Address Organization Details Recorded Time 02326 Product containin g penicilli n (product) medicatio n Not available Not available Not available 08/28/2022 83788 8001 SNOMED SHIREEN Niño [facility] & [place] 2 13:12:28 83886 Sudafed medicatio n Not available Not available Not available 08/28/2022 29544 2 RxNorm SHIREEN Niño [facility] & [place] 2 13:12:35 62100 isosorbid e medicatio n Not available Not available Not available 08/28/2022 6057 RxNorm SHIREEN Niño [facility] & [place] 2 13:12:46 55983 metformin medicatio n Not available Not available Not available 01/08/2023 6809 RxNorm Crystal EarlySHIREEN al [facility] & [place] 3 08:46:08 Medications Name Sig Start Date [...] Not Available Not Available Vitals Date Recorded Body height Body mass index (BMI) Body weight Oxygen saturation Oxygen saturation in Arterial blood by Pulse oximetry Heart rate Systolic blood pressure Diastolic blood pressure Provider Name and Address Organization Details Last Updated DateTime 5 165.1 cm 35.2 kg/m2 40268.1 5 g 97 % 97 % 74 /min 142 mm[Hg] 90 mm[Hg] Rhonda LONDON [facility] & [place] 5 14:12:05 Social History Question Answer Notes LastModified by Organizat ion Details LastModified Time Tobacco Smoking Status Current Every Day Smoker Former 3 PPD, IS CURRENTLY smoking 1/2 PPD SHIREEN Solorzano [facility] & [place] 09/25/2023 15:08:58 Do You Have An Advance Directive? No Information not available 11/12/2023 Are You Blind Or Do You Have Difficulty Seeing? No Information not available 11/12/2023 What Is Your Level Of Caffeine Consumption? None Information not available 11/12/2023 What Was The Date Of Your Most Recent Tobacco Screening? 09/24/2023 Information not available 11/12/2023 What Is Your Current Pack Years? 30ormorepac [email or web address] Information not available 11/12/2023 Are You Passively Exposed To Smoke? Yes [email or web address] Information not available 09/19/2022 How Much Tobacco Do You Smoke? 0.5 PPD [email or web address] Information not available 02/11/2024 Has Tobacco Cessation Counseling Been Provided? No Information not available 11/12/2023 How Many Years Have You Smoked Tobacco? 45 [email or web address] Information not available 09/19/2022 Sex: Male Functional Status Question Answer Note LastModified by Organizat ion Details LastModified Time Do you use any illicit or recreational drugs? Yes [email or web address] Information not available 09/19/2022 Do you or have you ever used any other forms of tobacco or nicotine? No Information not available 11/12/2023 What is your level of alcohol consumption? Occasional [email or web address] Information not available 09/19/2022 Do you or have you ever used smokeless tobacco? Former smokeless tobacco user [email or web address] Information not available 09/19/2022 What is your exercise level? Moderate [email or web address] Information not available 09/19/2022 Mental Status Question Answer Note LastModified by Organization D etails LastModified Time Do you feel stressed (tense, restless, nervous, or anxious, or unable to sleep at night)? [id number] Information not available 11/12/2023 Family History Relationship Description Onset Age of this Age Resolved Age Notes LastModified by Organization Details LastModified Time Father No current problems or disability [email or web address] Not available 08/28 13:19:16 Mother No current problems or disability [email or web address] Not available 08/28 13:19:16 Medical History Condition Response Coronary Artery Disease Y Atrial Fibrillation Y Kidney or Bladder Problems Y COPD Y Lung Disease Y GI Problems Y Chest Pain Y Heart Attack ([place]) Y Spine Problems Y Obstructive Sleep Apnea Y Neurological Problems Y Diabetes Y Obesity Y Arthritis Y Hyperlipidemia Y Back Problems Y Substance Abuse Y Reflux/GERD Y Shortness of Breath Y Dizziness or Fainting Y High Cholesterol Y Heart Disease Y Psychiatric/Mental Health Condition Y Arrhythmia Y Headaches Y Hypertension Y Kidney Disease Y Past Encounters Encounter ID Performer Location Encounter Start Date Encounter Closed Date Diagnosis/Indication Diagnosis SNOMED-CT Code Diagnosis ICD10 Code Diagnosis Note [id number] REE DUNHAM NP, S [address] [place] [address] 05/19/2025 13:55:00 05/19/2025 14:44:40 Essential hypertension 69834522 I10 Angina pectoris 44814520 0 I20.9 Left ventr icular systolic dysfunction 279913214 I51.9 Coronary atherosclerosis 716441086 I25.10 Hyperlipidemia 54309138 E78.5 Atrial fibrillation 4943 6004 I48.91 Long-term current use of anticoagulant 398173275 Z79.01 Coronary s tent stenosis 919034854 T82.855A Ventricula r premature beats 28526655 I49.3 Tobacco de pendence syndrome 82206455 F17.200 Health Concerns Section Related Observation LastModified by Organization Detai ls LastModified Time None Recorded Concern Status LastModified by Organization Details LastModified Time None Recorded Payers Encounter Date Sequence Insurance Name Policy Number Policy Antonio Covered Member ID Antonio Member ID Guarantor Name 05/19/2025 1 [place] (MEDICARE REPLACEMENT HMO) [id number] Sergio Mars [id number] Sergio Mars Notes Date Note Type Note Provider Name and Address Organization Details Recorded Time 05/19/2025 text/html Sergio is a 59-year-old male who is seen today in follow-up. The patient has a history significant for coronary artery disease, hypertension, hyperlipidemia, atrial fibrillation, and cardiomyopathy. Since our last visit, the patient was hospitalized at [facility] for unstable angina. The patient underwent left heart catheterization that revealed chronic occlusion of the left circumflex with [id number]-[id number] collaterals. The patient also has severe branch vessel disease in the mid 1st diagonal branch of the LAD. No substantial change from four years prior. Groin nontender, healing well. The patient continues to have transient intermittent chest pains. These occur intermittently, both at rest and with exertion. The patient has occasional palpitations. Rare dizziness with quick position changes. No other complaints or concerns. REE DUNHAM NP, S [address] [facility],[address], [place], [address], [facility] - [facility] - [place] & [place] 05/20/2025 16:51:34
--- OUTSIDE RECORDS SUMMARY | 2025-05-26 11:01 | XMS_ITS | Encounter Summary ---
Author Organization [employer] Address [address] [place] [address] Care Team Providers Care Balling Head Tender Name Role Phone Jhony Joyce MD Primary Care Provider [phone] Encounter Details Date Type Department Care Team (Late st Contact Info) Description 01/15/2023 Outside Orders [facility] Central Scheduling [address] [place] [address] Aravind Roach MD [address] [address] [place] [address] Chronic pain syndrome (Primary Dx) Social History Tobacco Use Types Packs/Day Years Used Date Smoking Tobacco: Never Assessed Sex and Gender Information Value Date Recorded Sex Assigned at Not on file 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
--- OUTSIDE RECORDS SUMMARY | 2025-05-26 11:01 | XMS_ITS | Clinical Summary ---
Author Organization [facility] More Address [address] [place] [address] Care Team Providers Care Planner/Scheduler Name Role Phone Jhony Joyce MD Primary Care Provider [phone] Allergies Active Allergy Reactions Criticality Noted Date Comments Coconut Swelling 01/26/2019 SWELLING Abbot Swelling 01/26/2019 SWELLING Isosorbide Other (See Comments) 08/30/2020 Severe headaches Molds Extract 01/14/2017 Penicillins 01/14/2017 Pseudoephedrine Anxiety,Other (See Comments) Low 02/22/2010 nervousness ANXIETY Sudafed Cough 01/14/2017 Medications aspirin 81 mg Oral Tablet, Chewable Take 81 mg by mouth daily. Reported on 05/09/2017 Active lisinopril (PRINIVIL;ZESTR IL) 40 mg Oral TabletIndicatio ns:hypertension Take 10 mg by mouth 2 times daily. Indications: high blood pressure Active nitroGLYCERIN (NITROSTAT) 0.4 mg SL Tablet, Sublingual Place 0.4 mg under the tongue every 5 minutes as needed for Chest pain. Active metFORMIN (GLUCOPHAGE) 500 mg Oral TabletIndicatio ns:type 2 diabetes mellitus Take 1,000 mg by mouth 2 times daily. Indications: type 2 diabetes mellitus Active ticagrelor (BRILINTA) 90 mg Oral Tablet Take 90 mg by mouth 2 times daily. Active MULTI-VITAMIN ORAL Take 1 Tab by mouth once. Active ranolazine (RANEXA) 500 mg Oral Tablet Sustained Release 12 hr Take 500 mg by mouth 2 times daily. Active pantoprazole (PROTONIX) 20 mg Oral Tablet, Delayed Release (E.C.) Take 40 mg by mouth daily. Active empagliflozin (JARDIANCE) 10 mg Oral Tablet Take 25 mg by mouth daily. Active niacin 500 mg Oral Tablet Take 500 mg by mouth daily (with breakfast). Active atorvastatin (LIPITOR) 20 mg Oral Tablet Take 80 mg by mouth daily. Active tiZANidine (ZANAFLEX) 4 mg Oral Tablet Take 4 mg by mouth 3 times daily. Active clonazePAM (KLONOPIN) 2 mg Oral Tablet Take 2 mg by mouth nightly. Active bisoprolol (ZEBETA) 5 mg Oral Tablet Take 5 mg by mouth daily. Active Dronedarone (MULTAQ) 400 mg Oral Tablet Take 400 mg by mouth 2 times daily. Active rivaroxaban (XARELTO) 20 mg Oral Tablet Take 20 mg by mouth daily. Active gabapentin (NEURONTIN) 600 mg Oral Tablet Take 600 mg by mouth. 02/29/2020 Active evolocumab (REPATHA SURECLICK) 140 mg/mL SubQ Pen Injector every 14 days. 10/13/2019 Active cariprazine HCl (CARIPRAZINE ORAL) Take by mouth. Active Active Problems Problem Noted Date Diagnosed Date Cardiomyopathy 01/29/2022 Gastroesophageal reflux disease 08/24/2020 Overview (08/24/2020): Added automatically from request for surgery [id number] Personal history of colonic polyps 08/24/2020 Overview (08/24/2020): Added automatically from request for surgery [id number] Paroxysmal atrial fibrillation 12/18/2018 Bradycardia 12/18/2018 PVCs (premature ventricular contractions) 2018 Essential hypertension 05/09/2017 Coronary artery disease invo lving [place] coronary artery of [place] heart without angina pectoris 05/09/2017 Resolved Problems Problem Noted Date Diagnosed Date Resolved Date Chest pain 05/09/2017 01/29/2022 Immunizations Immunization Administration Dates Next Due Pneumococcal Polysaccharide 23 Valent 05/10/2017 Surgical History Surgery Date Site/Laterality Comments CORONARY ANGIOPLASTY WITH STENT PLACEMENT 01/02/2017 - 01/29/2017 APPENDECTOMY TONSILLECTOMY TYMPANOSTOMY TUBE PLACEMENT NASAL SEPTUM SURGERY BACK SURGERY UPPER GASTROINTESTINAL ENDOSCOPY 09/12/2020 N/A ESOPHAGOGASTRODUODENOSCOP Y with biopsies; COLONOSCOPY with polypectomies via cold snare; Surgeon: Frank Stern MD; Location: [facility]; Service: Endoscopy Medical History Medical History Date Comments CAD (coronary artery disease) Hypertension Sleep apnea AR (myocardial infarction) (HCC) Cardiomyopathy (HCC) Arthritis Diabetes mellitus (HCC) Renal disorder Stage III Heartburn Hyperlipidemia PVCs (premature ventricular contractions) 019 Paroxysmal atrial fibrillation (HCC) 12/18/2018 Bradycardia 12/18/2018 Social History Tobacco Use Types Packs/Day Years Used Date Smoking Tobacco: Every Day Cigarettes 1 39.5 Started: 12/02/1985 Smokeless Tobacco: Never Tobacco Cessation:Ready to Q uit: No Comments:5 cigarettes daily Alcohol Use Standard Drinks/Week Comments No 2 (1 standard drink = 0.6 oz pur e alcohol) Sex and Gender Information Value Date Recorded Sex Assigned at Not on file Legal Sex Male 10:11 PM EDT Gender Identity Not on file Sexual Orientation Not on file Obstetrics History Last Filed Vital Signs Vital Sign Reading Time Taken Comments Blood Pressure 134/89 03/01/2022 6:20 AM EDT Pulse 81 03/01/2022 6:20 AM EDT Temperature 36.3 C (97.4 F) 03/01/2022 6:17 AM EDT Respiratory Rate 9 03/01/2022 6:20 AM EDT Oxygen Saturation 98% 03/01/2022 6:20 AM EDT Inhaled Oxygen Concentration - - Weight 100 kg (220 lb 6.4 oz) 03/01/2022 6:06 AM EDT Height 170.2 cm (5' 7 ) 03/01/2022 6:06 AM EDT Body Mass Index 34.52 03/01/2022 6:06 AM EDT Plan of Treatment Health Maintenance Due Date Last Done Comments Wellness Exam Medicare 1969 DTaP/TDaP/Td (1 - Tdap) 1985 Hepatitis B Vaccine (1 of 3 - 19+ 3-dose series) 1985 Cologuard 2011 FIT 2011 Sigmoidoscopy 2011 Virtual Colonography 2011 Low Dose Lung Cancer Screening 2016 12/29/2014 Zoster (1 of 2) 2016 Pneumococcal Vaccine 50+ (2 of 2 - PCV) 10/17/2021 10/17/2020, 05/10/2017, 09/16/2008, Additional history exists Colon Cancer Screening 09/12/2023 Colonoscopy 09/12/2023 09/12/2020 COVID-19 Vaccine (1 - season) 2024 Influenza Vaccine (Season Ended) 2025 12/12/2021, 10/17/2020, 10/09/2012, Additional history exists Meningococcal B Vaccine Aged Out No l onger eligible based on patient's age to complete this topic Procedures Procedure Name Priority Date/Time Associated Diagnosis Comments [facility] EGD-COLONOSCOPY Routine 09/12/2020 1:[address] CHEST WO CONTRAST Routine 12/29/2014 10:57 AM EST Cough from Last 3 Months or Most Recently Relevant to Health Maintenance Results * [facility] EGD-COLONOSCOPY (09/12/2020 1:30 PM EDT) 09/12/2020 1:30 PM EDT Impressions [facility] - 09/12/2020 2:48 PM EDT Plan: 1) recall colonoscopy in 3-5 yrs, pending the pathology, 2) high fiber diet, 3) repeat egd in 3 years, 4) f/u with pathology, if no results in 3-4 weeks, please call office. This section is an excerpt of the full report. us Frank Stern MD GI PROCEDURE ORDERABLES Fin al Result [facility] [address] [place] [address] * CT CHEST WO CONTRAST (12/29/2014 10:57 AM EST) Anatomical Region Laterality Modality Chest Computed Tomogra phy Impressions 12/30/2014 9:28 AM EST : Study limited by noncontrast technique. 1. Coronary artery stenting identified. The heart is otherwise unremarkable. 2. Some scattered pleural tags in both lung berrios and a 5 mm noncalcified nodule in the left lung. These are nonspecific and are of relatively low suspicion however, neoplastic nodule cannot be excluded in this patient with a history of tobacco use. Recommend six month follow up CT evaluation. No acute cardiopulmonary abnormality. Dylon Stein MD. Narrative 12/30/2014 9:28 AM EST EXAMINATION: CT Chest without Contrast. H/I: Cough. History of tobacco use. COMPARISON: No comparison studies. TECHNIQUE: Multislice axial unenhanced imaging of the chest was performed as well as 2D reconstructions in the coronal plane. Given the lack of intravenous contrast, the soft tissues and the vasculature are suboptimally evaluated. FINDINGS: Imaging of the low neck and the axilla is unremarkable. No pathologic adenopathy is identified within the mediastinum or joe although the joe are suboptimally evaluated due to a lack of intravenous contrast. Heart size is within normal limits. Multiple coronary artery stents are noted. No pericardial effusion. Limited imaging of the upper abdomen is grossly unremarkable. Lung imaging demonstrates some scattered pleural tags in both lung berrios. There is a noncalcified 5 mm pulmonary nodule noted in the left lung associated with the major fissure on image #27. No focal infiltrate or effusion. Post-surgical change are noted in the lower thoracic spine with apparent multilevel fusion with pedicle screws and rods. Jhony Joyce MD IMG CT ORDERABLES Final Result from Last 3 Months or Most Recently Relevant to Health Maintenance Insurance MED[place]ID [place] [employer] [place] [employer] [place] Advance Directives For more information, please contact: [phone] * Full Code (Latest Code Status on File) Date Activated Date Inactivated Comments 05/09/2017 6:51 PM 05/10/2017 5:16 PM Care Teams Planner/Scheduler Relationship Specialty Start Date End Date Jhony Joyce MD PCP - General 11/14/10
--- OUTSIDE RECORDS SUMMARY | 2025-05-26 11:01 | XMS_ITS | Clinical Summary ---
Author Organization [facility] Address [address] [place] [phone] Phone Care Team Providers Care Control Clerk Subassembly Name Role Phone Angelita LINDSAY, Lucie [facility] [phone] Conditions or Problems Problem Name Problem Code Onset Date Status Entry Date Provider Comment Standard Description Annotate SPONDYLOSIS, LUMBAR M47.817 (ICD-10-CM) Active Lucie Goldstein MD Spondylosis without myelopathy or radiculopathy , lumbosacral region Take Note of HYPERTENSION 68245572 (SNOMED CT) Active Dilcia Rae MA Hypertensive disorder Take Note of HEART ATTACK 15004776 (SNOMED CT) Active Dilcia Rae MA Myocardial infarction Take Note of ANGINA, HX OF [id number] (SNOMED CT) Active Dilcia Rae MA H/O: angina pectoris Medications Medication Instructions Start Date Stop Date Generic Name NDC Provider LISINOPRIL 10 MG TABS [facility] LISINOPRIL [id number] Dilcia [place] EMANUEL ASPIRIN 325 MG TABS [facility] ASPIRIN [id number] Dilcia aRe MA Medications Administered No information available. Allergies, Adverse Reactions, Alerts Allergy Name Reaction Description Start Date Severity Statu s Provider SUDAFED Critical Dilcia Rae MA SULFA Critical Dilcia Rae MA PCN Critical Dilcia Rae MA Results No information available. Plan of Care No information available. Procedures No information available. Vital Signs Date Name Value Unit Description BP Diastolic 76 mm[Hg] blood pressu re, diastolic BP Systolic 140 mm[Hg] blood pressur e, systolic Height 67 [in_us] height E&M Weight Measured 210 [lb_av] weight E& M Weight Measured 210 [lb_av] weight E& M Immunizations No information available. Advance Directives No information available.
--- OUTSIDE RECORDS SUMMARY | 2025-05-26 11:01 | XMS_ITS | Data Portability ---
Author Organization [place] [facility] [facility] Address [address] [place] [address] Care Team Providers Care Farm Specialist Name Role Phone CRISTIANO JOYCE Primary Care Provider [phone] Assessment Encounter Date Assessment Date Assessment LastModified by Organization Details LastModified Time 12/08/2024 12/08/2024 Last echocardiogram was in 2020. Did have reduced EF of 50%. States that palpitations are being controlled. BB was increased at previous visit. Has history of PAF./PVCs. Has had 2 ablations. Taking Xarelto without complications. Denies any blood in urine, bowel or black tarry stools. Has extensive history of CAD with multiple layering stents. Still smoking. Would benefit from echo to assess EF. -Last cardiac catheterization August 2021 showed 100% occlusion of the stent in his circumflex and obtuse marginal branch with xcxd-fy-hwqu collaterals. This was an old finding. He had some other mild diffuse disease but nothing else requiring intervention. He is not complaining of chest pain or shortness of breath. - EKG nsr 74 with Prwp, inferior TWA, no changes - he is on dual antithrombotic therapy with Brilinta and Xarelto for history of InStent restenosis. -last LDL 05/20/2023 was -7, had labs with family doctor. - last echocardiogram January of 2021 showed ejection fraction of 50% with normal valves. Plan -Set up echo -continue with taking Xarelto and Brilinta -continue with medications as they are prescribed -will defer stress testing at this time with patient being asymptomatic Will get EKG at next visit. [email or web address] Not available 12/08/2024 15:37:58 03/08/2025 03/08/2025 Reviewed echo wi th patient. EF is 50/55% with mild/moderate LVH with mild diastolic dysfunction. His BP is elevated today. States has not had his pain medications today r/t him driving. He usually runs 120/70s. Continues to take Eliquis and Brilinta. Also still smoking. He denies any angina or HF symptoms. Will not pursue any further testing at this time. -EKG today shows sinus with T wave abn. No acute changes. -Repeat BP 122/70 -Last cardiac catheterization August 2021 showed 100% occlusion of the stent in his circumflex and obtuse marginal branch with legs-fr-xmlc collaterals. This was an old finding. He had some other mild diffuse disease but nothing else requiring intervention. He is not complaining of chest pain or shortness of breath. - EKG nsr 74 with Prwp, inferior TWA, no changes - he is on dual antithrombotic therapy with Brilinta and Xarelto for history of InStent restenosis. -last LDL 05/20/2023 was -7, had labs with family doctor. - last echocardiogram January of 2021 showed ejection fraction of 50% with normal valves. Plan -Return to cardiology clinic in 6 months -continue with taking Xarelto and Brilinta -continue with medications as they are prescribed -will defer stress testing at this time with patient being asymptomatic Will get EKG at next visit. [email or web address] Not available 03/08/2025 13:41:11 05/19/2025 05/19/2025 Patient Educatio n was printed, [...] revealed normal LVEF 55% to 60% with jrnl-je-rrstkojj LVH and Doppler evidence of impaired relaxation of the left ventricle. Mild mitral insufficiency. LAST ISCHEMIC EVAL: None on file. LAST HEART CATH: 05/2025 revealed severe 100% occlusion InStent of the left circumflex and its distal portion with exzh-ua-zmmb collaterals filling the vessel. Severe branch vessel disease noted in the mid 1st diagonal branch of the left anterior descending. Patent stents throughout the proximal/mid/dista l large dominant right coronary artery. Moderate smooth [...] activity. - This note was dictated using [employer] software. If something is unclear, or does not make sense, please do not hesitate to contact our office at [phone] for clarification. [email or web address] Not available 05/20/2025 16:49:04 Plan of Treatment Reminders Order Date Submit Date Provider Last Modified By Organization Details Last Modified Time Details Appointments OV EST 30 2024 01:00P M REE DUNHAM NP, S Not available Not available Not available OV EST 30 2024 01:30P M OLIVIA PRETTY NP Not available Not available Not available Lab alpha-1-a ntitrypsi n (aat), QN, serum [email or web address] (Registration ), [address] [place] [address] [place], [address], 04/13/2025 09:12:17 alpha-1-a ntitrypsi n (aat), QN, serum [email or web address] [place] [address] (Registration ), [address] [place] [address] [place], [address], 04/13/2025 09:12:10 Referral None recorded. Procedures None recorded. Surgeries None recorded. Imaging electroca rdiogram 2024 025 [email or web address] [facility], [address] [place] [address] [address], [place], [address], 05/19/2025 14:45:06 electroca rdiogram 2024 025 [email or web address] [facility], [address] [place] [address] [address], [place], [address], 03/08/2025 13:34:10 LDCT, chest, for lung cancer screening 2024 025 [email or web address] 1 [facility] ([facility]), [facility] [address], [place], [address], 03/29/2025 09:06:45 US, echocardi ogram, transthor acic, complete, w/ color flow 2024 025 [email or web address] [facility] ([facility]), [facility] [address], [place], [address], 03/05/2025 08:11:50 Medication Orders verapamil ER 120 mg 24 hr capsule,e xtended release 2024 025 EUN[facility], [address] [place] [address], [address], 05/20/2025 09:57:41 Nitrostat 0.4 mg sublingua l tablet 2024 025 [facility], [address] [place] [address], [address], 05/19/2025 15:49:16 albuterol sulfate HFA 90 mcg/actua tion aerosol inhaler 2024 025 [email or web address] Vizcaino [facility], [address] [place] [address], [address], 02/09/2025 12:05:08 Patient TargetsNo targets recorded. Patient Instructions Encounter Date Encounter Id Patient Instructions Last Modified By Organization Details Last Modified Time 02/09/2025 [id number] alpha 1 antitryspin level LDCT scan of chest in March 2025 for 12 month follow-up as per radiologist recommendations * Tobacco cessation. Weight loss. Continue albuterol nebs or albuterol inhaler Q 4 p.r.n.. Return to clinic April 2025. [email or web address] Not available 02/09/2025 12:03:21 04/01/2025 [id number] alpha 1 antitryspin level per PCP or another soda clerk CT scan of chest in June 2025 for 3 month follow-up , as per primary care provider and/or another soda clerk Tobacco cessation. Weight loss. Continue albuterol nebs or albuterol inhaler Q 4 p.r.n.. He states he will discuss with Dr. Joyce today for a referral to another soda clerk and also discuss CT scan of chest in 3 months or June 2025 and/or a possible lung biopsy in the future per another soda clerk. addendum: Note I reordered an alpha 1 antitrypsin level. Patient states he may obtain this per his primary care provider and/ or another soda clerk. I told patient if he obtains this here, I am available till April 16, 2025 to check the results as I am retiring after this, he voiced understanding. [email or web address] Not available 04/04/2025 12:00:17 Reason for Referral None Reported. Results Created Date Observation Date Name Description Value Unit Range Abnormal Flag Note LastModifiedBy Organization Detail LastModifiedTime 12/29/19 25 12/11/2024 - ECHO w/spe c/col or flow [facility] Name: Angelo BAKER [address] [facility] Phys: Tavia LINDSAY, [place] [address] : 1964 Age: 59 Sex: M Acct: [id number] Loc: Kim PHONE #: Exam Date: 01/10/ 2025 Status : DEP CLI FAX #: [phone] Rad# [id number] Unit# [id number] Admit Date: 2024 EXAMS: CPT CODE: [id number] ECHO W/SPEC /COLOR FLOW 94121 Reason for study: Chest pain/d yspnea Left ventri cular diasto le: 5.7 Left ventri cular systol e: 4.4 Septal wall thickn ess: 1.2 Cherry Sorter ior wall thickn ess: 1.5 Right ventri cular diasto le: 1.1 Left Atrium : 3.8 Aortic root: 3.1 TR veloci ty: Less than 2.0 m/s Impres melvin: 1. Mild left and her chambe r dilata tion with border line normal left ventri cady or systol ic functi on. Estima rahel ejecti on fracti on is 50-55% . There is mild to modera te concen tric hypert rophy of the left ventri cady. There is Dopple r eviden ce for impair ed relaxa tion of the left ventri cady 2. No segmen john wall motion abnorm alitie s 3. Normal left atrial and right atrial size 4. Normal right ventri cular size and functi on 5. Normal mitral valve, with no mitral insuff icienc y 6. Normal aortic valve with no aortic insuff icienc y 7. No perica rdial effusi on 8. Normal aortic root 9. Normal tricus pid valve with tricus pid regurg itant jet veloci ty less than 2.0 m/s implyi ng normal right ventri cular systol ic pressu re Electr onical ly Signed by SONIDO ISAAC MD on 2024 at 1214 Report ed and signed by: SONIDO ISAAC MD PAGE 1 Signed Report (RACHEL NUED) [facility] Name: Angelo BAKERSHAQ [facility] Phys: Tavia LINDSAY, [place] [address] : 1964 Age: 59 Sex: M Acct: [id number] Loc: KimPATTI PHONE #: Exam Date: 2024 Status : DEP CLI FAX #: Rad# [id number] Unit# [id number] Admit Date: 2024 EXAMS: CPT CODE: [id number] ECHO W/SPEC /COLOR FLOW [id number] CC: [place] Isaac MD; Cristiano Joyce MD; Olivia lutz APRN Dictat ed Date/T victor manuel: 2024 (1214) Techno logist : BENI OATES Transc ribed Date/T victor manuel: 2024 (1214) Transc riptio nist: DR.LOH ABHIJIT Rubalcava onic Signat ure Date/T victor manuel: 2024 (1214) Printe d Date/T victor manuel: 2024 (1352) BATCH NO: N/A PAGE 2 Signed Report CC'ed Logic: Orderi ng Provid er: TAVIA HEAD Attend ing Provid er: PATRICK BAKER Referr ing Provid er: PATRICK BAKER Consul ting Provid er: DUYEN QUINONEZ [email or web address] [address] , [place], [address], 12/29/2024 15:15:49 03/08/20 elect rocar diogr am No observ ation record ed. EUNICE [facility]v [address], [place], [address], 03/08/2025 13:06:49 03/08/20 25 03/08/2025 elect rocar diogr am No observ ation record ed. [email or web address] Not Available 2024 13:10:22 03/10/20 25 03/10/2025 LDCT, chest , for lung donaldoce bolivar navarro [facility] Name: Angelo BAKER [facility] Phys: Christina pina MD, [place] [address] : 1964 Age: 59 Sex: M Acct: [id number] Loc: G.CT PHONE #: Exam Date: 2024 Status : DEP CLI FAX #: [phone] Rad# [id number] Unit# [id number] Admit Date: 2024 EXAMS: CPT CODE: [id number] CT CHEST LDCT LUNG SCREEN G0297 [...] e dedica rahel imagin g follow -up. [id number] . COMPAR AVANI: Diagno stic chest withou [...] No new signif icant soft tissue pulmon tatiana nodule s. PLEURA : No pleura l effusi on. No pneumo thorax . Hemidi aphrag ms are normal ly positi oned. MEDIAS TINUM AND LYMPH NODES: No medias tinal mass or fluid collec tion. Normal size medias tinal, hilar, and axilla ry lymph nodes. THORAC IC AORTA: Normal calibe r and config uratio n. PULMON TATIANA ARTERI ES: Normal calibe r. HEART: Normal heart size. No perica rdial effusi on. Severe esquivel ry artery calcif icatio n. OSSEOU S STRUCT URES AND CHEST WALL: Intact . UPPER ABDOME N: No signif icant abnorm alitie s. IMPRES MELVIN: No signif icant new pulmon tatiana nodule s. Severe esquivel ry artery calcif icatio n. PAGE 1 Signed Report (RACHEL NURESHMA) [facility] Name: Angelo BAKER [facility] Phys: Christina pina MD, [place] [address] : 1964 Age: 59 Sex: M Acct: [id number] Loc: G.CT PHONE #: [phone] Exam Date: 2024 Status : DEP CLI FAX #: Rad# [id number] Unit# [id number] Admit Date: 2024 EXAMS: CPT CODE: [id number] CT CHEST LDCT LUNG SCREEN G0297 Lung-R ADS Catego ry 2: Contin ue annual screen ing with LDCT in 12 months . Electr onical ly signed by: Lucas roman MD 2024 07:52 AM EDT RP Workst ation: [id number] Electr onical ly Signed by LUCAS ROMAN on 2024 at 0746 Report ed and signed by: KESHA ADORNO CK CC: Giovani pina M.D.; Cristiano Joyce MD Dictat ed Date/T victor manuel: 2024 (0746) Techno logist : DAVID ALEXANDER Y Transc ribed Date/T victor manuel: 2024 (0746) Transc riptio nist: DR.TRE WALDEN Electr onic Signat ure Date/T victor manuel: 2024 (0746) Printe d Date/T victor manuel: 2024 (0756) BATCH NO: N/A PAGE 2 Signed Report CC'ed Logic: Orderi ng Provid er: CHRISTINA HERMOSILLORE Y Attend ing Provid er: CHRISTINA HERMOSILLORE Y Referr ing Provid er: CHRISTINA HERMOSILLORE Y Consul ting Provid er: DUYEN DAWSON [address] [place], [address], 03/29/2025 09:06:45 05/19/20 elect rocar diogr am No observ ation record ed. EUNICE Mv [address], [place], [address], 05/19/2025 14:19:28 05/19/20 25 05/19/2025 elect rocar diogr am No observ ation record ed. [email or web address] Not Available 2024 14:47:29 05/24/20 25 05/24/2025 elect rocar diogr am inter preta tion* No observ ation record ed. [email or web address] Not Available 2024 08:09:55 Result Notes Documentation Provider Name and Address Organization Details Recorded Time Ldct, Chest, For Lung Cancer Screening : [facility] Ce Name: MARSELLIE 9 [facility] Phys: [place] [address] : 1965 Age: 59 Sex: M Acct: [id number] Loc: G.CT PHONE #: Exam Date: 03/09/2025 Status: DEP CLI FAX #: Rad# [id number] Unit# [id number] Admit Date: 03/09/2025 EXAMS: CPT CODE: [id number] CT CHEST LDCT LUNG SCREEN G0297 EXAMINATION: CT CHEST WITHOUT CONTRAST SCREENING FOR LUNG CANCER WITH LOW DOSE COMPUTED TOMOGRAPHY (LDCT) CLINICAL INDICATION: Male, 59 years old. LUNG SCREENING. TECHNIQUE: Low dose CT scan of the chest without intravenous contrast. One or more of the following dose reduction techniques were used: Automated exposure control, adjustment of the mA and/or kV according to patient size, and/or iterative reconstruction. Unless otherwise specified, incidental findings do not require dedicated imaging follow-up. [id number]. COMPARISON: Diagnostic chest without from March 17, 2024. FINDINGS: LOWER NECK: Visualized thyroid gland and soft tissues are normal. LUNGS AND AIRWAYS: New sub-2 cm ground glass nodule in the right apex on image 57. New sub-4 mm average flat density along the pleural surface in the right upper lobe on image 74. There are few tiny calcified granulomata which are stable. Perifissural nodule in the left lung on image 114 stable. No new significant soft tissue pulmonary nodules. PLEURA: No pleural effusion. No pneumothorax. Hemidiaphragms are normally positioned. MEDIASTINUM AND LYMPH NODES: No mediastinal mass or fluid collection. Normal size mediastinal, hilar, and axillary lymph nodes. THORACIC AORTA: Normal caliber and configuration. PULMONARY ARTERIES: Normal caliber. HEART: Normal heart size. No pericardial effusion. Severe coronary artery calcification. OSSEOUS STRUCTURES AND CHEST WALL: Intact. UPPER ABDOMEN: No significant abnormalities. IMPRESSION: No significant new pulmonary nodules. Severe coronary artery calcification. PAGE 1 Signed Report (CONTINUED) [facility] Ce Name: ELLIE MARS [address] [place] [address] Phys: Brigid LINDSAY, [place] [address] : 1965 Age: 59 Sex: M Acct: [id number] Loc: G.CT PHONE #: Exam Date: 03/09/2025 Status: DEP CLI FAX #: Rad# [id number] Unit# [id number] Admit Date: 03/09/2025 EXAMS: CPT CODE: [id number] CT CHEST LDCT LUNG SCREEN G0297 Lung-RADS Category 2: Continue annual screening with LDCT in 12 months. Electronically signed by: Lucas Ramachandran MD 03/10/2025 07:52 AM EDT at 0746 Reported and signed by: LUCAS RAMACHANDRAN CC: [place] Greer M.D.; Cristiano Joyce MD Dictated Date/Time: 03/10/2025 (07) Technologist: DAVID PETERSEN Transcribed Date/Time: 03/10/2025 (745) Cereal Supervisor: Electronic Signature Date/Time: 03/10/2025 (745) Printed Date/Time: 03/10/2025 (075) BATCH NO: N/A PAGE 2 Signed Report CC'ed Logic: Ordering Provider: BRIGID NAVARRO Attending Provider: BRIGID NAVARRO Referring Provider: BRIGID NAVARRO Consulting Provider: DUYEN QUINONEZ Not Available [facility] 03/29/2025 09:06:45 Problems Name Problem SNOMED Code Status Onset Date Resolution Date Notes Provider Name and Address Organization Details Recorded Time Coronary arterioscle rosis 81673832 Active 2021 Manjeet Pelaez NP [address] [facility],[address], [place], [address], [place] [facility] - [place] & [place] 2 12:10:25 Essential hypertensio n 50654943 Active 2021 Sawyer Adi null, [place] [facility] - [place] 2 13:19:04 Hyperlipide shorty 38207359 Active 2021 Sawyer Adi null, [place] 2 13:19:07 Atrial fibrillatio n 96843554 Active 2021 Sawyer Adi null, [place] 2 13:19:02 Ventricular premature beats 97931324 Active 2021 Sawyer Adi null, [place] 2 13:19:09 Tobacco dependence syndrome 78045707 Active 2021 Manjeet Pelaez NP [address] 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 to atheroscler osis 9921650108852 9108 Active 2021 Manjeet Pelaez NP [address], [place], [address], [place] 2 13:27:08 Nodule of lung 123315459 Active 2021 Manjeet Pelaez NP [address] [employer] [address], [place], [address], [place] & [place] 2 13:27:40 Coronary stent stenosis 907758987 Active 2021 Manjeet Pelaez NP [facility] [employer] [facility],[address] [place] [address], [address], [place] [facility] - [place] & [place] 2 13:28:00 Benign essential hypertensio n 9042085 Active 2021 Manjeet Pelaez NP [address] [place] [address],[address] [place] [address], [address], [place] & [place] 2 13:28:19 Internal carotid artery stenosis 009793363 Active 2021 Manjeet Pelaez NP [facility] [employer] [facility],[address] [place] [address], [address], [place] & [place] 2 14:03:26 Palpitation s 07349394 Active 2021 Manjeet Pelaez NP [facility] [employer] [facility],[address] [place] [address], [address], [place] & [place] 2 11:11:27 Pulmonary emphysema 91169860 Active 2021 Manjeet Pelaez NP [address] [place] [address],[address], [place], [address], [place] & [place] 2 08:52:19 Chronic obstructive pulmonary disease 51161303 Active 2022 Messi Greer MD [facility] [employer] [facility],[address] [place] [address], [address], [place] & [place] 3 01:04:29 Multiple nodules of lung 464628139 Active 2022 Messi Greer MD [address] [place] [address],[address], [place], [address], [place] & [place] 3 01:04:54 Coronary atheroscler osis 501471115 Active 2022 Manjeet Pelaez NP [facility],[address], [place], [address], [place] & [place] 3 14:15:20 Left ventricular systolic dysfunction 873125581 Active 2023 Manjeet Pelaez, LINOTYPER [address] [facility] [address], [place], [address], [place] & [place] 4 08:55:16 Problem Notes Documentation Provider Name and Address Organization Details Recorded Time Hospital Consultation - Cardiology : [facility] Consultation REPORT #: [id number] REPORT STATUS: Signed DATE: 05/10/25 TIME: 747 PATIENT: ELLIE MARS UNIT #: [id number] [address] AGE: 59 SEX: M ATTEND: Dorothy LINDSAY,Mark Singh ADM AUTHOR: Olivia Pretty APRN * ALL edits or amendments must be made on the electronic/computer document * History of Present Illness Date of Service: 05/10/25 Requesting Clinician: DASIA Goldstein Reason for consult: Unstable Angina Chief complaint: Chest Pain HPI: Patient is a 59yoa male that came to the ED with c/o chest pain. There is a PMH of CAD, HTN, HLD, T2DM and tobacco dependence. States that he had an acute onset of chest pain. States it woke him from a sound sleep. Reports it as a heaviness and pressure to the mid sternal. No radiation. Did have associated SOA and lightheadness. Upon arrival to ED he was given NTG. Also received Morphine and Zofran. His pain was eased. But not resolved. He continues this am to have a slight pressure in his chest. Reviewed labs. Iron def. Po Fe order by hospitalist. Creatinine 1.38, GFR 59, TGs 331, LDL 39. CXR is negative for cardiopulmonary abn. Last coronary evaluation 2020. Echo was 12/2024. EKG shows sinus with T wave abn. [facility] 08/2021: Performed by Dr. Isaac. - Severe One vessel CAD with 100% mid in-stent occlusion of Left CFX after takeoff of patent 1st obtuse marginal branch. - left to left collaterals filling distal left CFX. - patent stents in mid LAD descending. - patent stents throughout proximal mid and distal large dominant RCA. Echocardiogram 12/2024: Impression: 1. Mild left and her chamber dilatation with borderline normal left ventricle or systolic function. Estimated ejection fraction is 50-55%. There is mild to moderate concentric hypertrophy of the left ventricle. There is Doppler evidence for impaired relaxation of the left ventricle 2. No segmental wall motion abnormalities 3. Normal left atrial and right atrial size 4. Normal right ventricular size and function 5. Normal mitral valve, with no mitral insufficiency 6. Normal aortic valve with no aortic insufficiency 7. No pericardial effusion 8. Normal aortic root 9. Normal tricuspid valve with tricuspid regurgitant jet velocity less than 2.0 m/s implying normal right ventricular systolic pressure at 1214 Reported and Signed by: SONIDO ISAAC MD Medications: Home Medications: Medication Dose/Rte/Freq Days Qty Entered Last Max Daily Dose Reviewed sitaGLIPtin PHOSPHATE 100 MG PO DAILY 08/10/21 (JANUVIA) 1150 Strength: 100 MG TABLET Cariprazine Hydrochloride 4.5 MG PO DAILY 08/10/21 (Vraylar) 1151 Strength: 3 MG CAPSULE RANOLAZINE (RANEXA) 1,000 MG PO BID 10/13/18 Strength: 500 MG TAB 0408 Tizanidine HCl 4 MG PO TID 03/26/19 Strength: 4 MG TABLET 2004 Empagliflozin (Jardiance) 25 MG PO DAILY 03/26/19 Strength: 10 MG TABLET 2006 Bisoprolol Fumarate 5 MG PO D 03/26/19 Strength: 5 MG TABLET 2009 TICAGRELOR (BRILINTA) 90 MG PO BID 09/02/19 Strength: 90 MG TABLET 1545 GABAPENTIN (NEURONTIN) 600 MG PO TID 02/10/21 Strength: 600 MG TABLET 1609 clonazePAM 2 MG PO HS 02/10/21 Strength: 2 MG TABLET 1610 RIVAROXABAN (XARELTO) 2.5 MG PO BID 02/10/21 Strength: 10 MG TABLET 1611 MULTIVIT,THER IRON,CA,FA 1 TAB PO BID 02/10/21 MIN 1612 (THERAPEUTIC M) Strength: 1 EACH TABLET DRONEDARONE 400 MG PO BID 02/10/21 HYDROCHLORIDE 1612 (MULTAQ) Strength: 400 MG TABLET Evolocumab 140 MG SQ Q2W 02/10/21 (Repatha Pushtronex) 1613 Strength: 420 MG/3.5 ML WEAR.INJCT HYDROCODONE 1 TAB PO 05/10/25 BITARTRATE/APAP QIDP PRN PAIN 0502 (HYDROCODON-ACETAMINOPH 7.5-325) Strength: 7.5 MG-325 MG TABLET PARoxetine HCL (PAXIL) 20 MG PO DAILY 05/10/25 Strength: 20 MG TABLET 0503 ATORVASTATIN CALCIUM 80 MG PO HS 30 03/28/19 (LIPITOR) 0839 Strength: 80 MG TABLET PANTOPRAZOLE SOD 40 MG PO DBF 90 09/04/19 SESQUIHYDRATE 0911 (PROTONIX) Strength: 40 MG TABLET LISINOPRIL (ZESTRIL) 10 MG PO BID 60 07/17/18 Strength: 10 MG TABLET 1042 Current Hospital Medications: Sig/Bon Start time Last Medication Dose Route Stop Time Status Admin Insulin Human Lispro 0 HS 05/10 2100 AC SUBQ Aspirin 81 MG DAILY 05/10 900 AC 05/10 PO 38 Diazepam 10 MG ONCE 05/10 900 CKD 05/10 PO 46 Diphenhydramine HCl 50 MG ONCE 05/10 900 CKD 05/10 PO 46 Nitroglycerin 0.4 MG PRN PRN 05/10 900 AC SL Sodium Chloride 1,000 ML ONCE ONE 05/10 900 AC 05/10 IV 05/10 221 0947 Sodium Chloride 10 ML ONCE 05/10 900 AC IV Pantoprazole Sodium 40 MG DAILY@0800 05/10 08 AC 05/10 Sesquihydrate PO 937 Insulin Human Lispro 0 TIDWM 05/10 730 AC SUBQ Dextrose/Water 25 ML PRN PRN 05/10 0400 CKD IV Hydralazine HCl 10 MG Q4HP PRN 05/10 0400 AC IV Nicotine 7 MG DAILY PRN PRN 05/10 040 CKD TD Nitroglycerin 0.4 MG PRN PRN 05/10 0400 AC SL Acetaminophen 650 MG Q6HP PRN 05/10 0330 AC PO Al Hydrox/Mg Hydrox/ 30 ML Q4HP PRN 05/10 0330 AC Simethicone PO Docusate Sodium 100 MG BIDP PRN 05/10 330 AC PO Morphine Sulfate 2 MG Q2HP PRN 05/10 0330 AC 05/10 IV 0713 Ondansetron HCl 4 MG Q8HP PRN 05/10 330 AC IV Morphine Sulfate 0 .STK-MED ONE 05/10 228 DC .ROUTE Nitroglycerin 0 .STK-MED ONE 05/10 228 DCr .ROUTE Ondansetron HCl 0 .STK-MED ONE 05/10 228 DC .ROUTE Allergies: Coded Allergies: Mold (Severe, ANAPHYLACTIC SHOCK 10/13/18) coconut (Severe, THROAT SWELLS SHUT 10/13/18) cucumber (Severe, THROAT SWELLS SHUT 10/13/18) penicillin G (Severe, ANAPHYLAXIS 10/13/18) pseudoephedrine HCl (From Sudafed) (Severe, HYPER, INCREASED HEART RATE 10/13/18 ) isosorbide (Intermediate, HEADACHE 03/26/19) Problem List SAFE-T Triage Screening: Yes Problem List 1. Unstable angina pectoris Past Medical/Social History Past medical history: Reports: atrial fibrillation (Paroxysmal. ), CKD, coronary artery disease, diabetes mellitus, GERD, hyperlipidemia, hypertension. Additional medical history: Chronic back pain with spinal stenosis, diastolic dysfunction, duodenal ulcer, diverticulosis, GI bleed, Coe's esophagus. 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 Past surgical history: Reports: appendectomy, back/neck, cardiac stents, tonsillectomy (adenoids). Additional surgical history: Ears and Sinus surgeries, ablation. Family history: Reports: adopted, unknown. Patient History No Known Family History. Social history: Reports: lives with family, , no alcohol use, drug abuse (marijuana), smoker (1/2 pack per day). Additional social history: Can normally perform ADL's without limitations. Review of Systems Constitutional: Denies fatigue, Denies fever, Denies generalized weakness Skin: Denies: diaphoresis, ecchymosis, rash, swelling. Respiratory: Reports: SOB. Denies: HAYWARD (dyspnea on exertion), parox nocturnal dyspnea, productive cough (sputum), wheezing. Cardiovascular: Reports: chest pain, unstable angina. Denies: dyspnea on exertion, edema, orthopnea, palpitations, parox nocturnal dyspnea. GI: Denies: abdominal pain, diarrhea, dysphagia, GERD, nausea, vomiting. : Denies: dysuria, frequency, hematuria. Musculoskeletal: Denies: extremity pain, extremity swelling, joint pain, joint swelling. Heme: Denies: bleeding, petechiae. Endocrine: Denies: polydipsia, polyphagia, polyuria. Neuro: lightheaded. Denies: change in LOC, confusion, dizziness, numbness, slurred speech, syncope, weakness. Psych: Denies: anxiety, change in mental status, confusion, depression. Objective Physical Exam VS/I O: GENERAL APPEARANCE: alert and oriented, warm and dry, no apparent distress with pleasant and assertive affect.. NECK/THYROID: Supple, no lymphadenopathy, no thyromegaly, no jugular venous distension, no carotid bruit. Brisk carotid upstroke, trachea midline. LUNGS: Clear to auscultation. Good inspiratory and expiratory effort. No distress. ABDOMINAL: Positive bowel sounds. Abdomen soft, nontender, no organomegaly, no abdominal bruit, guarding, rebound, rigidity or hepatojugular reflex. EXTREMITIES: +2 pedal, radial and femoral pulses. No cyanosis, clubbing or edema. SKIN: Warm and dry NEUROLOGIC EXAM: alert, oriented X 3, normal gait, normal speech, no motor deficits, no sensory deficits, CNII-XII grossly intact PSYCH: oriented x 4, normal mood and affect, good eye contact, appropriate, assertive affect. HEENT: Normocephalic. Ears symmetrical bilaterally, conjunctivae pink, no proptosis, moist oral mucosa without cyanosis. Pupils reactive to light, no proptosis or ptosis. MUSCULOSKELETAL: Strength normal 4/5. Full range of motion, no weakness. Moves all extremities well. Normal inspection. HEART: Normal S1 and S2, no murmurs, rubs or gallops. Normal PMI. Regular rate and rhythm. Pulses equal bilaterally. General appearance: alert, awake Results Results: labs reviewed, vital signs stable, EKG personally reviewed, EKG - abnormal findings, rhythm personally rev'd Diagnosis, Assessment Plan Dx/Assessment/Plan: Vital Signs: Date Time Temp Pulse Resp B/P B/P Pulse O2 O2 Flow FiO2 Mean Ox Delivery Rate 05/10 0845 68 21 94 05/10 0830 73 21 156/90 95 05/10 0815 68 22 95 06/09 0800 61 23 162/94 95 06/09 0745 66 18 95 06/09 0500 62 21 155/83 98 06/09 0449 60 22 174/91 97 ROOM AIR / 0444 68 18 174/91 98 06/09 0245 72 13 105/70 95 06/09 0245 72 13 105/70 95 06/09 0244 73 6 119/74 94 06/09 0244 73 6 119/74 94 06/09 0241 74 7 117/71 95 06/09 0241 74 7 117/71 95 06/09 0236 81 21 110/70 93 06/09 0236 81 21 110/70 93 06/09 0230 74 17 136/86 96 06/09 0230 74 17 136/86 96 06/09 0215 76 8 149/87 96 /09 0215 76 8 149/87 96 06/09 0213 74 12 141/81 96 06/09 0213 74 12 141/81 96 06/09 0200 98.0 77 18 173/103 98 /09 0200 98.0 77 18 173/103 98 05/10 0159 77 97 / 0159 77 97 06/ 0158 173/103 / 0158 173/103 Laboratory Tests: 05/10 05/10 05/10 05/10 05/10 0620 0450 0450 0411 0215 Chemistry Sodium (136 - 145 mmol/L) 136 Potassium (3.5 - 5.1 mmol/L) 3.4 *L Chloride (98 - 107 mmol/L) 101 Carbon Dioxide (24 - 33 mmol/L) 25 Anion Gap (10 - 20 mmol/L) 13.4 BUN (7 - 18 mg/dL) 6 *L Creatinine (0.70 - 1.30 mg/dl) 1.38 *H Est GFR (CKD-EPI 2020) (>60 mL/min) 59 *L BUN/Creatinine Ratio (12 - 20) 4 *L Glucose (70 - 99 mg/dL) 223 *H Calculated Osmolality (272 - 288 276 mOSM/kg) Calcium (8.5 - 10.1 mg/dL) 8.7 Magnesium (1.8 - 2.4 mg/dL) 2.1 Total Bilirubin (0.2 - 1.0 mg/dL) 0.4 AST (15 - 37 U/L) 12 *L ALT (16 - 63 U/L) 21 Total Alk Phosphatase (46 - 116 U/L) 100 Troponin I (<77 pg/mL) 19 18 17 B-Natriuretic Peptide (0 - 100 pg/mL) 79 Total Protein (6.4 - 8.2 g/dL) 7.5 Albumin (3.4 - 5.0 g/dL) 3.5 Globulin (1.5 - 4.0 g/dL) 4.0 Albumin/Globulin Ratio (0.5 - 2.0) 0.9 Triglycerides (< 150 mg/dL) 331 *H Cholesterol (< 200 mg/dL) 55 LDL Cholesterol (< 100 mg/dl) -40 *L HDL Cholesterol (> 60 mg/dl) 29 *L TSH (0.36 - 3.74 uIU/ml) 1.21 Free T4 (0.76 - 1.46 ng/dL) 0.91 Coagulation PT (9.9 - 12.1 seconds) 13.8 *H INR (0.9 - 1.1) 1.3 *H APTT (23.0 - 31.7 seconds) 31 Hematology WBC (4.5 - 13.0 10e3/uL) 16.7 *H RBC (4.10 - 5.70 10e6/uL) 5.70 Hgb (12.0 - 16.9 g/dl) 14.5 Hct (36.0 - 49.0 %) 44.8 MCV (78.0 - 98.0 fL) 79 MCH (25.0 - 35.0 Pg) 25.4 MCHC (31.0 - 36.0 g/dL) 32.4 RDW (11.0 - 15.0 %) 15.9 *H Plt Count (150 - 400 10e3/uL) 253 Neut % (Auto) (35 - 75 %) 69 [place] % (Auto) (0 - 15 %) 5 Nucleat RBC Rel Count (/100 WBC) 0.0 Neut # (Auto) (1.50 - 8.00 x1000/uL) 11.45 *H Immature Gran % (0 - 1) 1 Lymphocytes % (10 - 50 %) 20 Eosinophils % (0 - 5 %) 5 Basophils % (0 - 5 %) 1 Immature Gran # (0 - 0.05 x1000/uL) 0.16 *H Lymphocytes # (1.20 - 5.20 x1000/uL) 3.26 Monocytes # (0.30 - 0.90 x1000/uL) 0.91 *H Eosinophils # (0.00 - 0.50 x1000/uL) 0.75 *H Basophils # (0.00 - 0.30 x1000/uL) 0.17 Recent Impressions: RADIOLOGY - CHEST PORTABLE 05/10 224 Report Impression - Status: SIGNED Entered: 05/10/2025325 IMPRESSION: The lungs and costophrenic sulci are clear. No pneumothorax. Cardiomediastinal contours are normal. Thoracospinal fusion hardware is partially imaged. Electronically signed by: Mark Villalobos MD 05/10/2025 03:22 AM EDT RP Impression By: MARK SHEPPARD Recent Impressions: RADIOLOGY - CHEST PORTABLE 05/10 224 Report Impression - Status: SIGNED Entered: 05/10/2025325 IMPRESSION: The lungs and costophrenic sulci are clear. No pneumothorax. Cardiomediastinal contours are normal. Thoracospinal fusion hardware is partially imaged. Electronically signed by: Mark Villalobos MD 05/10/2025 03:22 AM EDT RP Impression By: MARK SHEPPARD Impression NSTEMI Unstable Angina CAD HTN HLD T2DM Tobacco dependence Plan Recommend [facility]. Offered and he is agreeable. Continue Brilinta Continue Lipitor Continue Xarelto Continue Lisinopril Continue Bisoprolol Risks and benefits of left heart catheterization were discussed in full today. These include, but are not limited to, injury to blood vessels, fistula, pseudoaneurysm, stroke, distal embolization, myocardial infarction, infection and . Patient states understanding of risks and has agreed to proceed with angiographic evaluation. Further treatment pending results of left heart catheterization Reviewed medication and chart in full. Discussed with patient recommended plan of care. Voiced understanding. History and physical completed by Olivia Pretty APRN 30 min Medical decision-making completed by Dr. Sonido Isaac 33 min at 1205 at 1515 RPT #: [id number] END OF REPORT CC'ed Logic: Ordering Provider: DESTINI BAKER Attending Provider: DOROTHY FLORES Referring Provider: PHYSICIAN NO Consulting Provider: DUYEN QUINONEZ; TAVIA HEAD Admitting Provider: DOROTHY Flor [facility], [facility] & [place] 05/11/2025 07:21:20 Hospital Consultation - Cardiology : [facility] REPORT #: [id number] REPORT STATUS: Signed DATE: 05/10/25 TIME: 0748 PATIENT: ELLIE MARS UNIT #: [id number] ROOM/BED: [address] AGE: 59 SEX: M ATTEND: Mark Quiroz MD ADM AUTHOR: Olivia Pretty APRN * ALL edits or amendments must be made on the electronic/computer document * History of Present Illness Date of Service: 05/10/25 Requesting Clinician: DASIA Goldstein Reason for consult: Unstable Angina Chief complaint: Chest Pain HPI: Patient is a 59yoa male that came to the ED with c/o chest pain. There is a PMH of CAD, HTN, HLD, T2DM and tobacco dependence. States that he had an acute onset of chest pain. States it woke him from a sound sleep. Reports it as a heaviness and pressure to the mid sternal. No radiation. Did have associated SOA and lightheadness. Upon arrival to ED he was given NTG. Also received Morphine and Zofran. His pain was eased. But not resolved. He continues this am to have a slight pressure in his chest. Reviewed labs. Iron def. Po Fe order by hospitalist. Creatinine 1.38, GFR 59, TGs 331, LDL 39. CXR is negative for cardiopulmonary abn. Last coronary evaluation 2020. Echo was 12/2024. EKG shows sinus with T wave abn. [facility] 08/2021: Performed by Dr. Isaac. - Severe One vessel CAD with 100% mid in-stent occlusion of Left CFX after takeoff of patent 1st obtuse marginal branch. - left to left collaterals filling distal left CFX. - patent stents in mid LAD descending. - patent stents throughout proximal mid and distal large dominant RCA. Echocardiogram 12/2024: Impression: 1. Mild left and her chamber dilatation with borderline normal left ventricle or systolic function. Estimated ejection fraction is 50-55%. There is mild to moderate concentric hypertrophy of the left ventricle. There is Doppler evidence for impaired relaxation of the left ventricle 2. No segmental wall motion abnormalities 3. Normal left atrial and right atrial size 4. Normal right ventricular size and function 5. Normal mitral valve, with no mitral insufficiency 6. Normal aortic valve with no aortic insufficiency 7. No pericardial effusion 8. Normal aortic root 9. Normal tricuspid valve with tricuspid regurgitant jet velocity less than 2.0 m/s implying normal right ventricular systolic pressure at 1214 Reported and Signed by: SONIDO ISAAC MD Medications: Home Medications: Medication Dose/Rte/Freq Days Qty Entered Last Max Daily Dose Reviewed sitaGLIPtin PHOSPHATE 100 MG PO DAILY 08/10/21 (JANUVIA) 1150 Strength: 100 MG TABLET Cariprazine Hydrochloride 4.5 MG PO DAILY 08/10/21 (Vraylar) 1151 Strength: 3 MG CAPSULE RANOLAZINE (RANEXA) 1,000 MG PO BID 10/13/18 Strength: 500 MG TAB 0408 Tizanidine HCl 4 MG PO TID 03/26/19 Strength: 4 MG TABLET 2005 Empagliflozin (Jardiance) 25 MG PO DAILY 03/26/19 Strength: 10 MG TABLET 2006 Bisoprolol Fumarate 5 MG PO D 03/26/19 Strength: 5 MG TABLET 2009 TICAGRELOR (BRILINTA) 90 MG PO BID 09/02/19 Strength: 90 MG TABLET 1545 GABAPENTIN (NEURONTIN) 600 MG PO TID 02/10/21 Strength: 600 MG TABLET 1609 clonazePAM 2 MG PO HS 02/10/21 Strength: 2 MG TABLET 1610 RIVAROXABAN (XARELTO) 2.5 MG PO BID 02/10/21 Strength: 10 MG TABLET 1611 MULTIVIT,THER IRON,CA,FA 1 TAB PO BID 02/10/21 MIN 1612 (THERAPEUTIC M) Strength: 1 EACH TABLET DRONEDARONE 400 MG PO BID 02/10/21 HYDROCHLORIDE 1612 (MULTAQ) Strength: 400 MG TABLET Evolocumab 140 MG SQ Q2W 02/10/21 (Repatha Pushtronex) 1613 Strength: 420 MG/3.5 ML WEAR.INJCT HYDROCODONE 1 TAB PO 05/10/25 BITARTRATE/APAP QIDP PRN PAIN 0502 (HYDROCODON-ACETAMINOPH 7.5-325) Strength: 7.5 MG-325 MG TABLET PARoxetine HCL (PAXIL) 20 MG PO DAILY 05/10/25 Strength: 20 MG TABLET 0503 ATORVASTATIN CALCIUM 80 MG PO HS 30 03/28/19 (LIPITOR) 0839 Strength: 80 MG TABLET PANTOPRAZOLE SOD 40 MG PO DBF 90 09/04/19 SESQUIHYDRATE 0911 (PROTONIX) Strength: 40 MG TABLET LISINOPRIL (ZESTRIL) 10 MG PO BID 60 07/17/18 Strength: 10 MG TABLET 1042 Current Hospital Medications: Sig/Bon Start time Last Medication Dose Route Stop Time Status Admin Insulin Human Lispro 0 HS 05/10 2100 AC SUBQ Aspirin 81 MG DAILY 05/10 900 AC 05/10 PO 0938 Diazepam 10 MG ONCE 05/10 900 CKD 05/10 PO 0946 Diphenhydramine HCl 50 MG ONCE 05/10 900 CKD 05/10 PO 0946 Nitroglycerin 0.4 MG PRN PRN 05/10 900 AC SL Sodium Chloride 1,000 ML ONCE ONE 05/10 900 AC 05/10 IV 05/10 2219 0947 Sodium Chloride 10 ML ONCE 05/10 900 AC IV Pantoprazole Sodium 40 MG DAILY@0800 05/10 0800 AC 05/10 Sesquihydrate PO 0938 Insulin Human Lispro 0 TIDWM 05/10 0730 AC SUBQ Dextrose/Water 25 ML PRN PRN 05/10 0400 CKD IV Hydralazine HCl 10 MG Q4HP PRN 05/10 0400 AC IV Nicotine 7 MG DAILY PRN PRN 05/10 0400 CKD TD Nitroglycerin 0.4 MG PRN PRN 05/10 0400 AC SL Acetaminophen 650 MG Q6HP PRN 05/10 0330 AC PO Al Hydrox/Mg Hydrox/ 30 ML Q4HP PRN 05/10 330 AC Simethicone PO Docusate Sodium 100 MG BIDP PRN 05/10 330 AC PO Morphine Sulfate 2 MG Q2HP PRN 05/10 330 AC 05/10 IV 0713 Ondansetron HCl 4 MG Q8HP PRN 05/10 330 AC IV Morphine Sulfate 0 .STK-MED ONE 05/10 228 DC .ROUTE Nitroglycerin 0 .STK-MED ONE 05/10 228 DCr .ROUTE Ondansetron HCl 0 .STK-MED ONE 05/10 228 DC .ROUTE Allergies: Coded Allergies: Mold (Severe, ANAPHYLACTIC SHOCK 10/13/18) coconut (Severe, THROAT SWELLS SHUT 10/13/18) cucumber (Severe, THROAT SWELLS SHUT 10/13/18) penicillin G (Severe, ANAPHYLAXIS 10/13/18) pseudoephedrine HCl (From Sudafed) (Severe, HYPER, INCREASED HEART RATE 10/13/18 ) isosorbide (Intermediate, HEADACHE 03/26/19) Problem List SAFE-T Triage Screening: Yes Problem List 1. Unstable angina pectoris Past Medical/Social History Past medical history: Reports: atrial fibrillation (Paroxysmal. ), CKD, coronary artery disease, diabetes mellitus, GERD, hyperlipidemia, hypertension. Additional medical history: Chronic back pain with spinal stenosis, diastolic dysfunction, duodenal ulcer, diverticulosis, GI bleed, Coe's esophagus. 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 Past surgical history: Reports: appendectomy, back/neck, cardiac stents, tonsillectomy (adenoids). Additional surgical history: Ears and Sinus surgeries, ablation. Family history: Reports: adopted, unknown. Patient History No Known Family History. Social history: Reports: lives with family, , no alcohol use, drug abuse (marijuana), smoker (1/2 pack per day). Additional social history: Can normally perform ADL's without limitations. Review of Systems Constitutional: Denies fatigue, Denies fever, Denies generalized weakness Skin: Denies: diaphoresis, ecchymosis, rash, swelling. Respiratory: Reports: SOB. Denies: HAYWARD (dyspnea on exertion), parox nocturnal dyspnea, productive cough (sputum), wheezing. Cardiovascular: Reports: chest pain, unstable angina. Denies: dyspnea on exertion, edema, orthopnea, palpitations, parox nocturnal dyspnea. GI: Denies: abdominal pain, diarrhea, dysphagia, GERD, nausea, vomiting. : Denies: dysuria, frequency, hematuria. Musculoskeletal: Denies: extremity pain, extremity swelling, joint pain, joint swelling. Heme: Denies: bleeding, petechiae. Endocrine: Denies: polydipsia, polyphagia, polyuria. Neuro: lightheaded. Denies: change in LOC, confusion, dizziness, numbness, slurred speech, syncope, weakness. Psych: Denies: anxiety, change in mental status, confusion, depression. Objective Physical Exam VS/I O: GENERAL APPEARANCE: alert and oriented, warm and dry, no apparent distress with pleasant and assertive affect.. NECK/THYROID: Supple, no lymphadenopathy, no thyromegaly, no jugular venous distension, no carotid bruit. Brisk carotid upstroke, trachea midline. LUNGS: Clear to auscultation. Good inspiratory and expiratory effort. No distress. ABDOMINAL: Positive bowel sounds. Abdomen soft, nontender, no organomegaly, no abdominal bruit, guarding, rebound, rigidity or hepatojugular reflex. EXTREMITIES: +2 pedal, radial and femoral pulses. No cyanosis, clubbing or edema. SKIN: Warm and dry NEUROLOGIC EXAM: alert, oriented X 3, normal gait, normal speech, no motor deficits, no sensory deficits, CNII-XII grossly intact PSYCH: oriented x 4, normal mood and affect, good eye contact, appropriate, assertive affect. HEENT: Normocephalic. Ears symmetrical bilaterally, conjunctivae pink, no proptosis, moist oral mucosa without cyanosis. Pupils reactive to light, no proptosis or ptosis. MUSCULOSKELETAL: Strength normal 4/5. Full range of motion, no weakness. Moves all extremities well. Normal inspection. HEART: Normal S1 and S2, no murmurs, rubs or gallops. Normal PMI. Regular rate and rhythm. Pulses equal bilaterally. General appearance: alert, awake Results Results: labs reviewed, vital signs stable, EKG personally reviewed, EKG - abnormal findings, rhythm personally rev'd Diagnosis, Assessment Plan Dx/Assessment/Plan: Vital Signs: Date Time Temp Pulse Resp B/P B/P Pulse O2 O2 Flow FiO2 Mean Ox Delivery Rate 06/09 0845 68 21 94 06/ 0830 73 21 156/90 95 05/10 0815 68 22 95 06/09 0800 61 23 162/94 95 09 0745 66 18 95 06/09 0500 62 21 155/83 98 / 0449 60 22 174/91 97 ROOM AIR 05/10 0444 68 18 174/91 98 / 0245 72 13 105/70 95 /09 0245 72 13 105/70 95 /09 0244 73 6 119/74 94 /09 0244 73 6 119/74 94 /09 0241 74 7 117/71 95 /09 0241 74 7 117/71 95 /09 0236 81 21 110/70 93 /09 0236 81 21 110/70 93 /09 0230 74 17 136/86 96 /09 0230 74 17 136/86 96 / 0215 76 8 149/87 96 / 0215 76 8 149/87 96 / 0213 74 12 141/81 96 /09 0213 74 12 141/81 96 /09 0200 98.0 77 18 173/103 98 /09 0200 98.0 77 18 173/103 98 / 0159 77 97 05/10 0159 77 97 / 0158 173/103 05/10 0158 173/103 Laboratory Tests: 05/10 05/10 05/10 05/10 05/10 0620 0450 0450 0411 0215 Chemistry Sodium (136 - 145 mmol/L) 136 Potassium (3.5 - 5.1 mmol/L) 3.4 *L Chloride (98 - 107 mmol/L) 101 Carbon Dioxide (24 - 33 mmol/L) 25 Anion Gap (10 - 20 mmol/L) 13.4 BUN (7 - 18 mg/dL) 6 *L Creatinine (0.70 - 1.30 mg/dl) 1.38 *H Est GFR (CKD-EPI 2020) (>60 mL/min) 59 *L BUN/Creatinine Ratio (12 - 20) 4 *L Glucose (70 - 99 mg/dL) 223 *H Calculated Osmolality (272 - 288 276 mOSM/kg) Calcium (8.5 - 10.1 mg/dL) 8.7 Magnesium (1.8 - 2.4 mg/dL) 2.1 Total Bilirubin (0.2 - 1.0 mg/dL) 0.4 AST (15 - 37 U/L) 12 *L ALT (16 - 63 U/L) 21 Total Alk Phosphatase (46 - 116 U/L) 100 Troponin I (<77 pg/mL) 19 18 17 B-Natriuretic Peptide (0 - 100 pg/mL) 79 Total Protein (6.4 - 8.2 g/dL) 7.5 Albumin (3.4 - 5.0 g/dL) 3.5 Globulin (1.5 - 4.0 g/dL) 4.0 Albumin/Globulin Ratio (0.5 - 2.0) 0.9 Triglycerides (< 150 mg/dL) 331 *H Cholesterol (< 200 mg/dL) 55 LDL Cholesterol (< 100 mg/dl) -40 *L HDL Cholesterol (> 60 mg/dl) 29 *L TSH (0.36 - 3.74 uIU/ml) 1.21 Free T4 (0.76 - 1.46 ng/dL) 0.91 Coagulation PT (9.9 - 12.1 seconds) 13.8 *H INR (0.9 - 1.1) 1.3 *H APTT (23.0 - 31.7 seconds) 31 Hematology WBC (4.5 - 13.0 10e3/uL) 16.7 *H RBC (4.10 - 5.70 10e6/uL) 5.70 Hgb (12.0 - 16.9 g/dl) 14.5 Hct (36.0 - 49.0 %) 44.8 MCV (78.0 - 98.0 fL) 79 MCH (25.0 - 35.0 Pg) 25.4 MCHC (31.0 - 36.0 g/dL) 32.4 RDW (11.0 - 15.0 %) 15.9 *H Plt Count (150 - 400 10e3/uL) 253 Neut % (Auto) (35 - 75 %) 69 [place] % (Auto) (0 - 15 %) 5 Nucleat RBC Rel Count (/100 WBC) 0.0 Neut # (Auto) (1.50 - 8.00 x1000/uL) 11.45 *H Immature Gran % (0 - 1) 1 Lymphocytes % (10 - 50 %) 20 Eosinophils % (0 - 5 %) 5 Basophils % (0 - 5 %) 1 Immature Gran # (0 - 0.05 x1000/uL) 0.16 *H Lymphocytes # (1.20 - 5.20 x1000/uL) 3.26 Monocytes # (0.30 - 0.90 x1000/uL) 0.91 *H Eosinophils # (0.00 - 0.50 x1000/uL) 0.75 *H Basophils # (0.00 - 0.30 x1000/uL) 0.17 Recent Impressions: RADIOLOGY - CHEST PORTABLE 05/10 224 Report Impression - Status: SIGNED Entered: 05/10/2025325 IMPRESSION: The lungs and costophrenic sulci are clear. No pneumothorax. Cardiomediastinal contours are normal. Thoracospinal fusion hardware is partially imaged. Electronically signed by: Mark Villalobos MD 05/10/2025 03:22 AM EDT Impression By: MARK SHEPPARD Recent Impressions: RADIOLOGY - CHEST PORTABLE 05/10 224 Report Impression - Status: SIGNED Entered: 05/10/2025325 IMPRESSION: The lungs and costophrenic sulci are clear. No pneumothorax. Cardiomediastinal contours are normal. Thoracospinal fusion hardware is partially imaged. Electronically signed by: Mark Villalobos MD 05/10/2025 03:22 AM EDT RP Impression By: MARK SHEPPARD Impression NSTEMI Unstable Angina CAD HTN HLD T2DM Tobacco dependence Plan Recommend [facility]. Offered and he is agreeable. Continue Brilinta Continue Lipitor Continue Xarelto Continue Lisinopril Continue Bisoprolol Risks and benefits of left heart catheterization were discussed in full today. These include, but are not limited to, injury to blood vessels, fistula, pseudoaneurysm, stroke, distal embolization, myocardial infarction, infection and . Patient states understanding of risks and has agreed to proceed with angiographic evaluation. Further treatment pending results of left heart catheterization Reviewed medication and chart in full. Discussed with patient recommended plan of care. Voiced understanding. History and physical completed by Olivia Pretty APRN 30 min Medical decision-making completed by Dr. Sonido Isaac 33 min at 1205 RPT #: [id number] END OF REPORT CC'ed Logic: Ordering Provider: DESTINI BAKER Attending Provider: DOROTHY FLORES Referring Provider: PHYSICIAN EDOUARD Consulting Provider: DUYEN HEAD Admitting Provider: DOROTHY Flor null, [place] - [facility] - [place] [facility] [place] 05/11/2025 07:18:24 Procedures Surgical History Date Name Laterality Status Provider Name and Address Organization Details Recorded Time 025 cardiac catheterization completed Rhonda Fall [place] - [facility] - [place] & [place] 05/19/2025 14:13:30 012 Head or Neck Surgery completed Carrie Bryant [place] - [facility] - [place] & [place] 09/19/2022 13:54:05 011 Back Surgery [place] Carrie Bryant [place] [facility] [place] 09/19/2022 13:54:05 010 Back Surgery completed Carriejovanny Bryant [place] - [facility] - [place] [facility] [place] 09/19/2022 13:54:05 cardiac catheterization completed Sawyer Joshi [place] - [facility] - [place] & [place] 08/28/2022 13:19:51 Appendectomy completed Sawyer Joshi [place] [facility] [place] 08/28/2022 13:20:13 Back Surgery completed Sawyer Black[place]or [place] - [facility] [place] 08/28/2022 13:20:20 Imaging Results None recorded. Procedure Notes None recorded. Medical Equipment None Reported. Allergies Allergen ID Allergen Name Allergen Category Reaction Reaction Severity Criticality Documentation Date Start Date Code Code System Note Provider Name and Address Organization Details Recorded Time 56268 Product containin g penicilli n (product) medicatio n Not available Not available Not available 08/28/2022 05208 8001 SNOMED Sawyer AdiSHIREEN vilchis [place] [facility] [place] 2 13:12:28 07725 Sudafed medicatio n Not available Not available Not available 08/28/202253647 2 RxNorm SHIREEN Niño [place] [facility] [place] 2 13:12:35 94183 isosorbid e medicatio n Not available Not available Not available 08/28/2022 6057 RxNorm SHIREEN Niño [place] [facility] [place] 2 13:12:46 08287 metformin medicatio n Not available Not available Not available 01/08/2023 6809 RxNorm Crystal EarlySHIEREN al [place] [facility] [place] 3 08:46:08 Medications Name Sig Start Date [...] d Address Organization Details Last Updated DateTime 02/09/2025 70 /min eMssi guan MD [address] [facility],[address], [place], [address], [facility] & [place] 02/09/2025 12:01:55 Date Recorded Body height Body mass index (BMI) Body weight Oxygen saturation Oxygen saturation in Arterial blood by Pulse oximetry Respiratory rate Systolic blood pressure Diastolic blood pressure Provider Name and Address Organization Details Last Updated DateTime 5 165.1 cm 33.6 kg/m2 53196.6 6 g 98 % 98 % 12 /min 122 mm[Hg] 80 mm[Hg] [facility] [place] 11:53:18 Date Recorded Body height Body mass index (BMI) Body weight Oxygen saturation Oxygen saturation in Arterial blood by Pulse oximetry Heart rate Systolic blood pressure Diastolic blood pressure Provider Name and Address Organization Details Last Updated DateTime 5 165.1 cm 34.7 kg/m2 38902.3 7 g 96 % 96 % 71 /min 162 mm[Hg] 90 mm[Hg] Rhonda LONDON [facility] & [place] 5 12:59:34 Date Recorded Heart rate Provider Name an d Address Organization Details Last Updated DateTime 04/01/2025 70 /min Messi guan MD [address] [place] [address],[address], [place], [address], SHIREEN LONDON [facility] & [place] 04/01/2025 09:49:01 Date Recorded Body height Body mass index (BMI) Body weight Oxygen saturation Oxygen saturation in Arterial blood by Pulse oximetry Respiratory rate Systolic blood pressure Diastolic blood pressure Provider Name and Address Organization Details Last Updated DateTime 5 165.1 cm 33.9 kg/m2 89809.8 4 g 100 % 100 % 14 /min 130 mm[Hg] 72 mm[Hg] Ashlyn LONDON [facility] & [place] 5 09:43:21 Date Recorded Body height Body mass index (BMI) Body weight Oxygen saturation Oxygen saturation in Arterial blood by Pulse oximetry Heart rate Systolic blood pressure Diastolic blood pressure Provider Name and Address Organization Details Last Updated DateTime 5 165.1 cm 35.2 kg/m2 59348.1 5 g 97 % 97 % 74 /min 142 mm[Hg] 90 mm[Hg] Rhonda LONDON [facility] & [place] 5 14:12:05 Social History Question Answer Notes LastModified by Organizat ion Details LastModified Time Tobacco Smoking Status Current Every Day Smoker Former 3 PPD, IS CURRENTLY smoking 1/2 PPD Ashlyn yousif, SHIREEN Meraz LPNT [facility] & [place] 09/25/2023 15:08:58 Do You Have An Advance Directive? No Information not available 11/12/2023 Are You Blind Or Do You Have Difficulty Seeing? No Information not available 11/12/2023 What Is Your Level Of Caffeine Consumption? None Information not available 11/12/2023 What Was The Date Of Your Most Recent Tobacco Screening? 09/24/2023 Information not available 11/12/2023 What Is Your Current Pack Years? [email or web address] swan Information not available 11/12/2023 Are You Passively Exposed To Smoke? Yes [email or web address] Information not available 09/19/2022 How Much Tobacco Do You Smoke? 0.5 PPD [email or web address] Information not available 02/11/2024 Has Tobacco Cessation Counseling Been Provided? No Information not available 11/12/2023 How Many Years Have You Smoked Tobacco? 45 [email or web address] Information not available 09/19/2022 Sex: Male Functional Status Question Answer Note LastModified by Organizat ion Details LastModified Time Do you use any illicit or recreational drugs? Yes [email or web address] Information not available 09/19/2022 Do you or have you ever used any other forms of tobacco or nicotine? No Information not available 11/12/2023 What is your level of alcohol consumption? Occasional [email or web address] Information not available 09/19/2022 Do you or have you ever used smokeless tobacco? Former smokeless tobacco user [email or web address] Information not available 09/19/2022 What is your exercise level? Moderate [email or web address] Information not available 09/19/2022 Mental Status Question Answer Note LastModified by Organization D etails LastModified Time Do you feel stressed (tense, restless, nervous, or anxious, or unable to sleep at night)? [id number] Information not available 11/12/2023 Family History Relationship Description Onset Age of this Age Resolved Age Notes LastModified by Organization Details LastModified Time Father No current problems or disability [email or web address] Not available 08/28 13:19:16 Mother No current problems or disability [email or web address] Not available 08/28 13:19:16 Medical History Condition Response Coronary Artery Disease Y Atrial Fibrillation Y COPD Y Spine Problems Y Obstructive Sleep Apnea Y Obesity Y Arthritis Y Arrhythmia Y Headaches Y Kidney Disease Y Kidney or Bladder Problems Y Back Problems Y Substance Abuse Y Lung Disease Y Shortness of Breath Y Dizziness or Fainting Y High Cholesterol Y Psychiatric/Mental Health Condition Y GI Problems Y Chest Pain Y Heart Attack (SC) Y Neurological Problems Y Diabetes Y Hyperlipidemia Y Reflux/GERD Y Heart Disease Y Hypertension Y Past Encounters Encounter ID Performer Location Encounter Start Date Encounter Closed Date Diagnosis/Indication Diagnosis SNOMED-CT Code Diagnosis ICD10 Code Diagnosis Note [id number] ANA ROSA Hernandez [address] [place] [id number] 6 08/28/2022 13:01:50 08/28/2022 13:24:55 Coronary arteriosclerosis 05301207 I25.10 Essential hypertension 12646486 I10 Hyperlipidemia 25256821 E78.5 Atrial fibrillation 4943 6004 I48.91 Long-term current use of anticoagulant 996656410 Z79.01 Coronary s tent stenosis 376426214 T82.855A Ventricula r premature beats 17681641 I49.3 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855A Ventricula r premature beats 83262054 I49.3 Tobacco de pendence syndrome 63440540 F17.200 Nodule of lung 875363834 R91.1 Benign ess ential hypertension 6112669 I10 Pulmonary emphysema 8743 3001 J43.9 [id number] MD [facility] [address] [place] [id number] 8 01/08/2023 08:34:53 01/08/2023 08:53:59 Chronic obstructive pulmonary disease 71249230 J44.9 Pulmonary emphysema 8743 3001 J43.9 Multiple n odules of lung 385806519 R91.8 [id number] ANA ROSA Hernandez [address] [place], [place] [phone] 01/21/2023 13:25:02 01/21/2023 14:16:17 Coronary atherosclerosis 267267773 I25.10 Coronary arteriosclerosis 18752721 I25.10 Essential hypertension 00484367 I10 Hyperlipidemia 02063611 E78.5 Atrial fibrillation 4943 6004 I48.91 Long-term current use of anticoagulant 110480587 Z79.01 Coronary s tent stenosis 322101460 T82.855A Ventricula r premature beats 72887257 I49.3 Tobacco de pendence syndrome 69779975 F17.200 Nodule of lung 811594113 R91.1 Benign ess ential hypertension 8305463 I10 Pulmonary emphysema 8743 3001 J43.9 [id number] MD [facility] [address] [place] [address] [address] [place] [address] 8 03/20/2023 09:49:42 03/20/2023 10:15:48 Chronic obstructive pulmonary disease 66181056 J44.9 Pulmonary emphysema 8743 3001 J43.9 Multiple n odules of lung 927814044 R91.8 [id number] Manjeet Pelaez NP [address] [place] [id number] 6 05/20/2023 12:57:40 05/20/2023 13:27:58 Coronary atherosclerosis 762905048 I25.10 Essential hypertension 24368757 I10 Hyperlipidemia 23175298 E78.5 Atrial fibrillation 4943 6004 I48.91 Long-term current use of anticoagulant 229922313 Z79.01 Coronary s tent stenosis 016100754 T82.855A Ventricula r premature beats 10507796 I49.3 Tobacco de pendence syndrome 92755550 F17.200 Nodule of lung 482905678 R91.1 Pulmonary emphysema 8743 3001 J43.9 [id number] MD [facility] [address] [place] [address] [address] [place] [address] 09/25/2023 14:49:16 09/25/2023 15:17:28 Chronic obstructive pulmonary disease 21186490 J44.9 Pulmonary emphysema 8743 3001 J43.9 Multiple n odules of lung 387447219 R91.8 [id number] Manjeet Pelaez NP [address] [place] [id number] 11/12/2023 12:57:17 11/12/2023 13:24:24 Coronary atherosclerosis 975004123 I25.10 Essential hypertension 62847711 I10 Hyperlipidemia 45253206 E78.5 Atrial fibrillation 4943 6004 I48.91 Long-term current use of anticoagulant 719132798 Z79.01 Coronary s tent stenosis 108226153 T82.855A Ventricula r premature beats 72460330 I49.3 Tobacco de pendence syndrome 77499717 F17.200 [id number] Messi Greer MD [facility] [address] [place] [address] [address] [place] [id number] 8 02/11/2024 14:25:42 02/11/2024 15:00:30 Chronic obstructive pulmonary disease 91105805 J44.9 Pulmonary emphysema 8743 3001 J43.9 Multiple n odules of lung 756386263 R91.8 [id number] MD [facility] [address] [place] [address] [address] [place] [id number] 8 04/15/2024 11:50:42 04/15/2024 12:16:00 Chronic obstructive pulmonary disease 46631046 J44.9 Pulmonary emphysema 8743 3001 J43.9 Multiple n odules of lung 703365242 R91.8 [id number] Manjeet Pelaez NP [address] [place] [id number] 6 05/25/2024 12:56:15 05/25/2024 13:33:09 Coronary atherosclerosis 934361828 I25.10 Essential hypertension 57993899 I10 Hyperlipidemia 15227419 E78.5 Atrial fibrillation 4943 6004 I48.91 Long-term current use of anticoagulant 177558131 Z79.01 Coronary s tent stenosis 389034557 T82.855A Ventricula r premature beats 00130058 I49.3 Tobacco de pendence syndrome 28171835 F17.200 Left ventr icular systolic dysfunction 053167651 I51.9 [id number] MD [facility] [address] [place] [address] [place], [place] [id number] 02/09/2025 11:41:24 02/09/2025 12:05:01 Chronic obstructive pulmonary disease 72607477 J44.9 Pulmonary emphysema 8743 3001 J43.9 Multiple n odules of lung 446860163 R91.8 [id number] OLIVIA PRETTY NP [address] [place] [address] 6 12/08/2024 13:37:38 12/08/2024 13:59:43 Left ventricular systolic dysfunction 354708586 I51.9 Coronary atherosclerosis 520307625 I25.10 Essential hypertension 31985833 I10 Hyperlipidemia 63479767 E78.5 Atrial fibrillation 4943 6004 I48.91 Long-term current use of anticoagulant 885728555 Z79.01 Coronary s tent stenosis 700459305 T82.855A Ventricula r premature beats 15680280 I49.3 Tobacco de pendence syndrome 75702188 F17.940 [id number] Sonido Isaac MD [address] [place] [address] 6 03/08/2025 12:48:38 03/08/2025 13:39:36 Left ventricular systolic dysfunction 103674739 I51.9 Coronary atherosclerosis 450496191 I25.10 Essential hypertension 61358565 I10 Hyperlipidemia 12240740 E78.5 Atrial fibrillation 4943 6004 I48.91 Long-term current use of anticoagulant 804348101 Z79.01 Coronary s tent stenosis 996441769 T82.855A Ventricula r premature beats 83200726 I49.3 Tobacco de pendence syndrome 54193411 F17.880 [id number] MD [facility] [address] [place] [address] [address] [place], [place] [id number] 04/01/2025 09:29:11 04/01/2025 10:05:05 Chronic obstructive pulmonary disease 70167501 J44.9 Pulmonary emphysema 8743 3001 J43.9 Multiple n odules of lung 464685539 R91.8 [id number] REE DUNHAM NP, S MV [address] [place] [address] 05/19/2025 13:55:00 05/19/2025 14:44:40 Essential hypertension 64152246 I10 Angina pectoris 35849552 0 I20.9 Left ventr icular systolic dysfunction 743596010 I51.9 Coronary atherosclerosis 153600585 I25.10 Hyperlipidemia 63911249 E78.5 Atrial fibrillation 4943 6004 I48.91 Long-term current use of anticoagulant 186176766 Z79.01 Coronary s tent stenosis 990581576 T82.855A Ventricula r premature beats 48667881 I49.3 Tobacco de pendence syndrome 72410399 F17.200 Health Concerns Section Related Observation LastModified by Organization Detai ls LastModified Time None Recorded Concern Status LastModified by Organization Details LastModified Time None Recorded Advance Directives Directive N: Payers Insurance Date Sequence Insurance Name Policy Number Policy Antonio Covered Member ID Antonio Member ID Guarantor Name 03/08/2025 2 [place] Ellie Mars [id number] Ellie Mars 03/18/2025 2 MEDICAID-[facility] CHOICES - FFS/TRADITION AL Ellie Mars [id number] Ellie Mars 10/14/2024 2 [place] Ellie Mars [id number] Ellie Mars 05/22/2025 1 [place]MEDICARE REPLACEMENT HMO) [id number] Ellie Mars [id number] Ellie Mars 10/25/2021 2 UNSPECIFIED REMIT PAYOR Ellie Mars Notes Date Note Type Note Provider Name and Address Organization Details Recorded Time 5 text/html Telephonic visit initiated by patient. States that he is feeling well. Denies any angina, edema, palpitations or [place]. States that was seen in the remote past by PCP who did labs. States was told was WNL. Does take Xarelto. Denies any blood in urine, bowel or black tarry stools. OLIVIA PRETTY, ANA ROSA [address] [facility],[address], [place], [address], [place] - [facility] - [place] & [place] 12/08/2024 15:38:19 5 text/html 59-year-old male with history of hypertension, hyperlipidemia, coronary disease, atrial fibrillation.Medications in the past have included Klonopin, Xarelto, lisinopril, Zanaflex and gabapentin here for follow up. 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 He states he has lost weight with diet modification.Dyspnea, timing with extreme exertion, and is again minimal in severity, relieved with rest. He denies associated fever, chills, weight loss, night sweats, hemoptysis, pleurisy, chest pain, chest pressure, productive sputum, orthopnea, syncope, palpitations, dizziness or PND. Modified Wells criteria 0. Wilmot of 0. 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 Patient does not get sleepy or fall asleep while driving, he again was warned no driving motorized vehicles or operating heavy machinery while fatigued, sleepy or drowsy , he voiced understanding. He denies fatigue or hypersomnia. He is improved on albuterol. He has an albuterol nebulizer and inhaler. He was trying to quit smoking, he is down from 3 packs a day for several years (40 years) down to 1/2 PPD.He is disabled and he does not work. No history of COPD or lung cancer in the family. He sees a helpdesk specialist Dr. Isaac, states he has 31 stents per patient history. He denies any cardiopulmonary, GI or neurologic complaints today.He again states he is rarely using his nebulizer or his rescue inhaler. He is doing well presently from a cardiopulmonary standpoint he states. He is down to half pack cigarettes a day.He again voices no cardiopulmonary complaints, no GI complaints, no neurologic complaints today.We tried him on Trelegy, he states his sputum became blue and he discontinued. He feels much better since he is cut his cigarette smoking back. He rarely uses albuterol inhaler or nebulizer. PULMONARY FUNCTION TEST March 2023: FEV1 3.54 or 105% predicted, FVC of 4.70 or 109% predicted FEV1 FVC ratio of 75%, no significant improvement post bronchodilators. CT SCAN OF CHEST MARCH 17, 2024 [...] pulmonary nodules will be based on the [facility] criteria.Any incidentally noted liver lesions equal [...] of incidental pulmonary nodules are based on [facility] criteria.Transcribed Date: 03/19/2023 1:00 PMTranscribed By: [...] pulmonary nodules will be based on the [facility] criteria.Any incidentally noted liver lesions equal [...] interactions with all of the prescribed and [id number]-ucstqhp medications with a pharmacist, the patient again voiced understanding. The patient was instructed to go to ER if the patient does not continue to improve or worsens, he again voiced understanding.Patient was warned if the patient does not follow up with the CT scan of chest as recommended, and follow-up with results of CT scan chest with me or PCP, this may result in future ill health, sickness, and even , he again voiced understanding.Patient instructed to follow-up with primary care provider and/or helpdesk specialist for dense coronary artery calcifications as this could result in immediate ill health, sickness, and , he again voiced understanding and stated he would follow up, he sees Dr Isaac.I went over CT scan chest results with patient in detail from March 2024, I answered all of his questions, he had no further questions.He declines any further pulmonary/thoracic diagnostic procedures at the present time for abnormalities noted on most recent CT scan of chest. He declines bronchoscopy, CT lung biopsy, and/or surgical biopsy/ resection of abnormalities noted on most recent CT scan of chest March 2024. I told the patient to follow-up with his primary care provider immediately for abnormalities noted on his previous CT scan in his abdomen /small liver lesions, he voiced understanding and he stated he would follow-up with Dr. Joyce for this. I previously gave the patient a copy of his most recent CT scan of chest.I told the patient I will be retiring April 2025, the patient voiced understanding.The patient was instructed to follow-up with their primary care provider and/or a soda clerk/sleep physician for all their future pulmonary needs/ issues/meds and all of their sleep needs/issues/meds, the patient voiced understanding. The patient was also instructed to follow-up with their primary care provider and/ or a soda clerk for all recommended future CT scans of the chest, the patient voiced understanding. I told the patient their lack of follow-up with recommended future CT scans of chest could result in future ill health, sickness, , the patient again voiced understanding.He voiced understanding of all the above. Messi Greer MD [address] [facility],[address], [place], [address], [place] - [facility] - [place] & [place] 02/09/2025 12:04:18 5 text/html Patient is here to review recent echo. He was further evaluated for a borderline EF of 50% on previous echocardiogram. OLIVIA PRETTY, ANA ROSA [address] [facility],[address], [place], [address], [place] - [facility] - [place] & [place] 03/08/2025 13:42:00 5 text/html 59-year-old male with history of hypertension, hyperlipidemia, coronary disease, atrial fibrillation.Medications in the past have included Klonopin, Xarelto, lisinopril, Zanaflex and gabapentin here for follow up. 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 He states he has lost weight with diet modification.Dyspnea, timing with extreme exertion, and is minimal in severity, relieved with rest. He denies associated fever, chills, weight loss, night sweats, hemoptysis, pleurisy, chest pain, chest pressure, productive sputum, cough, orthopnea, syncope, palpitations, dizziness or PND. Modified Wells criteria 0. Wilmot of 1. Quality and context sputum is [...] cancer in the family. He sees a helpdesk specialist Dr. Isaac, states he has 31 stents per patient [...] March 09, 2025 as below:Report DetailsPatient Name: ELLIE MARSProcedureDate: 025Gender: Edouard of : 1965 Age 59 yearsPatient ID: [id number]: CT CHEST LDCT LUNG SCREENReferringPhysician:Teddy CameronRepramone TextEXAMINATION: CT CHEST WITHOUT CONTRAST SCREENING FOR [...] findings do not require dedicated imaging follow-up. [id number].COMPARISON: Diagnostic chest without from March 17, 2024.FINDINGS:LOWER [...] WALL: Intact.UPPER ABDOMEN: No significant abnormalities.IMPRESSION:A ccession: [phone] Name: ELLIE MARS Account #:No significant new pulmonary nodules. Severe coronary artery calcification.Lung-RADS Category 2: Continue annual screening with LDCT in 12 months.Electronically signed by: Lucas Ramachandran MD 03/10/2025 07:52 AM EDT Workstation:[id number] anscribed Date: 03/10/2025 7:46 AMTranscribed By:Reported by: Danae RAMACHANDRANgned by: LUCAS RAMACHANDRANDateSigned:03/10/2025 7:46 CT SCAN OF CHEST MARCH [...] pulmonary nodules will be based on the [facility] criteria.Any incidentally noted liver lesions equal to [...] 03/17/2024 9:59 AMTranscribed By: Dylon SteinReported by: Martina Steined by: Dylon SteinDateSigned:4/16/202 4 9:59 CT SCAN OF CHEST DONE MARCH [...] of incidental pulmonary nodules are based on [facility] criteria.Transcribed Date: 03/19/2023 1:00 PMTranscribed By: [...] pulmonary nodules will be based on the [facility] criteria.Any incidentally noted liver lesions equal [...] interactions with all of the prescribed and nkxg-vxn-tkgigsi medications with a pharmacist, the patient again voiced understanding. The patient was instructed to go to ER if the patient does not continue to improve or worsens, he again voiced understanding.Patient was warned if the patient does not follow up with the CT scan of chest as recommended, and follow-up with results of CT scan chest with another soda clerk or PCP, this may result in future ill health, sickness, and even , he again voiced understanding. I gave him a copy of his most recent CT scan chest March 2025 to take with him today to his primary care provider and/ or another soda clerk.Patient again was instructed to follow-up with primary care provider and/or helpdesk specialist for dense/severe coronary artery calcifications as this could result in immediate ill health, sickness, and , he again voiced understanding and stated he would follow up, he sees Dr Isaac. He states he has 31 stents.I went [...] his primary care provider and/ or another soda clerk, he states he will discuss with Dr. Joyce today his primary care provider at [facility].I told the patient to follow-up with [...] with their primary care provider and/or a soda clerk/sleep physician for all their future pulmonary needs/ issues/meds and all of their sleep needs/issues/meds, the patient voiced understanding. The patient was also instructed to follow-up with their primary care provider and/ or a soda clerk for all recommended future CT scans of [...] he will obtain this lab through another soda clerk and/or his primary care provider Dr. Joyce. Messi Greer MD [address] [place] [address],[address], [place], [address], [facility] & [place] 04/04/2025 12:00:22 5 text/html Ellie is a 59-year-old male who is seen today in follow-up. The patient has a history significant for coronary artery disease, hypertension, hyperlipidemia, atrial fibrillation, and cardiomyopathy. Since our last visit, the patient was hospitalized at [facility] for unstable angina. The patient underwent left heart catheterization that revealed chronic occlusion of the left circumflex with [id number] collaterals. The patient also has severe branch [...] complaints or concerns. REE DUNHAM NP, S [address] [place] [address],[address], [place], [address], [facility] & [place] 05/20/2025 16:51:34
--- OUTSIDE RECORDS SUMMARY | 2025-05-26 11:02 | XMS_ITS | Referral Summary ---
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
== END 2025-05-24 23:59 | disposition home or self-care (01) ==
LOC: LAB.DROPOF 05-26 10:38
PROVIDERS: PCP Family Medicine; Visit Provider Family Medicine
DX: I25.10 Atherosclerotic heart disease of native coronary artery without angina pectoris (principal); Z12.5 Encounter for screening for malignant neoplasm of prostate; E11.9 Type 2 diabetes mellitus without complications
CPT/HCPCS: 80053; 83036; G0103

== ENCOUNTER 2025-09-22 08:48 | Outpatient (CLI) | payer MEDICARE, SELFPAY ==
[2025-09-22 19:24] LABS: Hematocrit 41.5 % (42.0-52.0); Hemoglobin 13.3 g/dL (14.1-18.0); Immature Granulocytes % 0.7 %; Mean Corpuscular HGB Conc 32.0 g/dL (31.8-35.4); Mean Corpuscular Hemoglobin 25.7 pg (27.0-31.2); Mean Corpuscular Volume 80.3 fl (80-94); Nucleated Red Blood Cells % 0 %; Platelet Count 221 K/mm3 (142-424); Red Blood Count 5.17 M/mm3 (4.60-6.20); Red Cell Distribution Width-SD 45.4 fL; White Blood Count 10.2 K/mm3 (4.8-10.8)
[2025-09-22 19:56] LABS: Albumin Level 3.8 g/dl (3.5-5.0)
[2025-09-22 19:59] LABS: Alanine Aminotransferase 16 U/L (12-78); Alkaline Phosphatase 114 U/L (38-126); Aspartate Amino Transferase 22 U/L (17-59); Bilirubin,Direct 0.1 mg/dl (0.0-0.4); Bilirubin,Indirect 0.3 mg/dL (0.0-0.9); Bilirubin,Total 0.4 mg/dl (0.2-1.3); Bilirubin,Unconjugated 0.4 mg/dL (0.0-1.1); Total Protein,Serum 7.0 g/dl (6.3-8.2); Triglycerides 268 mg/dl (30-150)
[2025-09-22 20:00] LABS: Cholesterol 61 mg/dl (140-200); HDL Cholesterol 24 mg/dl (40-60)
== END 2025-09-22 23:59 ==
LOC: LAB.DROPOF 09-24 08:48
PROVIDERS: PCP Family Medicine; Visit Provider Physician Assistant
DX: I25.10 Atherosclerotic heart disease of native coronary artery without angina pectoris (principal); E78.5 Hyperlipidemia, unspecified; I10 Essential (primary) hypertension; Z79.899 Other long term (current) drug therapy
CPT/HCPCS: 80061; 80076; 85025

== ENCOUNTER 2025-11-23 12:49 | Outpatient (CLI) | payer MEDICARE, SELFPAY ==
--- OUTSIDE RECORDS SUMMARY | 2025-11-23 12:52 | XMS_ITS | Clinical Summary ---
Author Organization [facility] Address [address] [place] [address] Care Team Providers Care Pediatric Surgeon Name Role Phone Jhony Joyce MD Primary Care Provider [phone] Allergies Active Allergy Reactions Criticality Noted Date Comments Penicillins Anaphylaxis 02/22/2010 Pseudoephedrine Hcl Other (See Comments) 2009 nervousness Social History Tobacco Use Types Packs/Day Years Used Date Smoking Tobacco: Never Assessed Sex and Gender Information Value Date Recorded Sex Assigned at Not on file Legal Sex Male 6:53 PM EST Gender Identity Not on file Sexual Orientation Not on file Plan of Treatment Not on file Care Teams Pediatric Surgeon Relationship Specialty Start Date End Date Jhony Joyce MD PCP - General 02/22/10
--- OUTSIDE RECORDS SUMMARY | 2025-11-23 12:52 | XMS_ITS | Clinical Summary ---
Author Organization [facility] Address [address] [place] [id number] Care Team Providers Care Cutlet Maker Pork Name Role Phone Jhony Joyce MD Primary Care Provider [phone] Allergies Active Allergy Reactions Criticality Noted Date Comments Coconut Swelling 01/26/2019 SWELLING Perrin Extract Swelling 01/26/2019 SWELLING Isosorb Dinitrate-Hydralazine Other (See Comments) 12/18/2018 Headaches Penicillins Anaphylaxis High 12/18/2018 ANAPHYLAXIS Pseudoephedrine Hcl Anxiety Low 12/18/2018 ANXIETY Medications ranolazine (RANEXA) 500 MG 12 hr tablet Take 1,000 mg by mouth 2 (Two) Times a Day. Active aspirin 81 MG EC tablet Take 81 mg by mouth Daily. Active JARDIANCE 10 MG tablet Take 10 mg by mouth Daily. 12/04/2018 Active metFORMIN (GLUCOPHAGE) 500 MG tablet Take 500 mg by mouth 2 (Two) Times a Day With Meals. Active tiZANidine (ZANAFLEX) 4 MG tablet Take 4 mg by mouth 3 (Three) Times a Day. Active atorvastatin (LIPITOR) 10 MG tablet Take 10 mg by mouth Every Night. Active ticagrelor (BRILINTA) 90 MG tablet tablet Take 90 mg by mouth 2 (Two) Times a Day. Active lisinopril (PRINIVIL,ZESTRI L) 10 MG tablet Take 10 mg by mouth 2 (Two) Times a Day. Active bisoprolol (ZEBeta) 10 MG tablet Take 5 mg by mouth Every Night. Active rivaroxaban (XARELTO) 10 MG tablet Take 2.5 mg by mouth 2 (Two) Times a Day. Active REPATHA SURECLICK 140 MG/ML solution auto-injector Every 14 (Fourteen) Days. 3 10/13/2019 Active pantoprazole (PROTONIX) 40 MG EC tablet Take 40 mg by mouth Daily. 03/04/2020 Active gabapentin (NEURONTIN) 600 MG tablet Take 600 mg by mouth 3 (Three) Times a Day. 02/29/2020 Active clonazePAM (KlonoPIN) 2 MG tablet Every Night. 12/15/2020 Active Multaq 400 MG tablet TAKE 1 TABLET TWO TIMES A DAY WITH MEALS. 60 tablet 04/06/2022 Active Active Problems Problem Noted Date Diagnosed Date Coronary artery disease invo lving [place] coronary artery of [place] heart without angina pectoris 10/22/2019 Essential hypertension 10/22/2019 PVC (premature ventricular contraction) 02/12/20 19 Overview (02/11/2019): Added automatically from request for surgery [id number] VT (ventricular tachycardia) 02/11/2019 Overview (02/11/2019): Added automatically from request for surgery [id number] PVC's (premature ventricular contractions) 12/19 Overview (12/19/2018): Added automatically from request for surgery [id number] Ventricular tachyarrhythmia 12/18/2018 Paroxysmal atrial fibrillation 12/18/2018 Bradycardia 12/18/2018 PVCs (premature ventricular contractions) 2018 Social History Tobacco Use Types Packs/Day Years Used Date Smoking Tobacco: Some Days Cigarettes Last attempted to quit: 09/2019 Smokeless Tobacco: Never Tobacco Cessation:Ready to Q uit: Yes Alcohol Use Standard Drinks/Week Comments No 0 (1 standard drink = 0.6 oz pur e alcohol) Abuse Screen Answer Date Recorded Unsafe at Home or Work/School Not on file Feels Threatened by Someone? Not on file 11/2023 Does Anyone Keep You from Co ntacting Others or Doint Things Outside the Home? Not on file 09/12/2023 Physical Sign of Abuse Present Not on file 1 Housing Stability Answer Date Recorded Current Living Arrangements Not on file 09/01 Potentially Unsafe Housing Conditions Not on tammie e 09/12/2023 Family and Community Support Answer Gil[place] e Recorded Help with Day-to-Day Activities Not on file 09/12/2023 Lonely or Isolated Not on file 09/12/2023 Employment Answer Date Recorded Do you want help finding or keeping work or a raman b? Not on file 09/12/2023 Disabilities Answer Date Recorded Concentrating, Remembering, or Making Decisions Difficulty Not on file 09/12/2023 Doing Errands Independently Difficulty Not on fi le 09/12/2023 Education Answer Date Recorded Help with school or training? Not on file Preferred Language Not on file 09/12/2023 Sex and Gender Information Value Date Recorded Sex Assigned at Not on file Legal Sex Male 2:11 PM EST Gender Identity Not on file Sexual Orientation Not on file Last Filed Vital Signs Vital Sign Reading Time Taken Comments Blood Pressure 118/72 12/22/2020 1:16 PM EST Pulse 81 12/22/2020 1:16 PM EST Temperature 36.9 C (98.5 F) 03/24/2019 11:27 AM EDT Respiratory Rate 15 03/24/2019 4:38 PM EDT Oxygen Saturation 96% 12/22/2020 1:16 PM EST Inhaled Oxygen Concentration - - Weight 99.3 kg (219 lb) 12/22/2020 1:16 PM EST Height 170.2 cm (5' 7 ) 12/22/2020 1:16 PM EST Body Mass Index 34.3 12/22/2020 1:16 PM EST Plan of Treatment Health Maintenance Due Date Last Done Comments TDAP/TD VACCINES (1 - Tdap) 1985 COLOGUARD 2011 COLON CANCER SCREENING 5 YEAR SIGMOIDOSCOPY 2011 COLONOSCOPY 2011 [address] CANCER SCREENING 2011 CT COLONOGRAPHY 2011 FECAL OCCULT BLOOD TEST 2011 FIT Testing (1 year) 2011 ZOSTER VACCINE (1 of 2) 2016 Pneumococcal Vaccine 50+ (2 of 2 - PCV) 05/10/2018 0 05/10/2017 ANNUAL PHYSICAL 12/17/2018 HEPATITIS C SCREENING 12/17/2018 INFLUENZA VACCINE 07/02/2025 Insurance MEDICARE A & B Care Teams Cutlet Maker Pork Relationship Specialty Start Date End Date Jhony Joyce MD [address] [place] [address] PCP - General Family Medicine 12/18/18
--- OUTSIDE RECORDS SUMMARY | 2025-11-23 12:52 | XMS_ITS | Clinical Summary ---
Author Organization [employer] ([place], [place], [place], [place], [place]) Address [address] [place] [address] Care Team Providers Care Seasonal Customer Service Associate Name Role Phone Jhony Joyce MD Primary Care Provider [phone] Social History Tobacco Use Types Packs/Day Years Used Date Smoking Tobacco: Never Assessed Food Insecurity Answer Date Recorded Food run [...] Date Harry rded Speak language other than Lebanese at home Not on file 12/21/2023 Want help with school or training Not on file 12/21/2023 Substance Use Answer Date Recorded Used prescription meds for non-medical reasons N ot on file 12/21/2023 Used illegal drugs past 12 months Not on file 12/21/2023 Sex and Gender Information Value Date Recorded Sex Assigned at Not on file 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
--- OUTSIDE RECORDS SUMMARY | 2025-11-23 12:52 | XMS_ITS | Referral Summary ---
Author Organization [employer] ([place], [place], [place], [place], [place]) Address [address] [place] [address] Care Team Providers Care Resident Care Associate Name Role Phone Jhony Joyce MD Primary Care Provider Social History Tobacco Use Types Packs/Day Years [...] Date Harry rded Speak language other than Gabonese at home Not on file 12/21/2023 Want help with school or training Not on file 12/21/2023 Substance Use Answer Date Recorded Used prescription meds for non-medical reasons N ot on file 12/21/2023 Used illegal drugs past 12 months Not on file 12/21/2023 Sex and Gender Information Value Date Recorded Sex Assigned at Not on file 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
--- OUTSIDE RECORDS SUMMARY | 2025-11-23 12:52 | XMS_ITS | Clinical Summary ---
Author Organization [facility] Address [address] [place] [address] Care Team Providers Care Equipment Operation Instructor Name Role Phone Jhony Joyce MD Primary Care Provider [phone] Allergies Active Allergy Reactions Criticality Noted Date Comments Coconut Swelling 01/26/2019 SWELLING [place] Swelling 01/26/2019 SWELLING Isosorbide Other (See Comments) [...] (08/24/2020): Added automatically from request for surgery [id number] Personal history of colonic polyps 08/24/2020 Overview (08/24/2020): Added automatically from request for surgery [id number] Paroxysmal atrial fibrillation 12/18/2018 Bradycardia 12/18/2018 PVCs (premature ventricular contractions) 2018 Essential hypertension 05/09/2017 Coronary artery disease invo lving [place] coronary artery of [place] heart without angina pectoris 05/09/2017 Resolved Problems [...] CAD (coronary artery disease) Hypertension Sleep apnea AL (myocardial infarction) (HCC) Cardiomyopathy (HCC) Arthritis Diabetes mellitus (HCC) Renal disorder Stage III Heartburn Hyperlipidemia PVCs (premature ventricular contractions) 019 Paroxysmal atrial fibrillation (HCC) 12/18/2018 Bradycardia 12/18/2018 Social History Tobacco Use Types Packs/Day Years Used Date Smoking Tobacco: Every Day Cigarettes 1 40 Started: [birth year]/02/1985 Smokeless Tobacco: Never Tobacco Cessation:Ready [...] Screening 09/12/2023 Colonoscopy 09/12/2023 09/12/2020 COVID-19 Vaccine ( - season) 2025 Influenza Vaccine (#1) 2025 2, 10/17/2020, 10/09/2012, Additional history exists Meningococcal B [...] PM EDT) 09/12/2020 1:30 PM EDT Impressions [facility] - 09/12/2020 2:48 PM EDT Plan: 1) recall colonoscopy in 3-5 yrs, pending the pathology, 2) high fiber diet, 3) repeat egd in 3 years, 4) f/u with pathology, if no results in 3-4 weeks, please call office. This section is an excerpt of the full report. us Frank Stern MD GI PROCEDURE ORDERABLES Fin al Result [facility] [address] [place] [address] * CT CHEST WO CONTRAST [...] Recently Relevant to Health Maintenance Insurance [place] Advance Directives For more information, please contact: [phone] * Full Code (Latest Code Status on File) Date Activated Date Inactivated Comments 05/09/2017 6:51 PM 05/10/2017 5:16 PM Care Teams Equipment Operation Instructor Relationship Specialty Start Date End Date Jhony Joyce MD PCP - General 11/14/10
--- NOTE | 2025-11-23 12:54 | XR_ITS ---
FINAL REPORT CLINICAL HISTORY: Erosive Osteo Arthritis COMPARISON: None FINDINGS: RIGHT HIP Two views of the right hip with an AP view of the pelvis demonstrate no acute fracture or dislocation. The joint spaces appear normal. The visualized bony structures are well aligned. No soft tissue abnormality is seen. IMPRESSION: No acute bony abnormality. Reviewed, Interpreted and Dictated by Jez Cast MD Transcribed by Na Sims Authenticated and [facility]
--- NOTE | 2025-11-23 12:54 | XR_ITS ---
FINAL REPORT CLINICAL HISTORY: Erosive Osteo Arthritis COMPARISON: None FINDINGS: LEFT HIP: Two views of the left hip demonstrate no acute fracture or dislocation. The joint spaces appear normal. The visualized bony structures are well aligned. No soft tissue abnormality is seen. IMPRESSION: No acute bony abnormality. Reviewed, Interpreted and Dictated by Jez Cast MD Transcribed by Na Sims Authenticated and [facility]
--- NOTE | 2025-11-23 13:00 | CT_ITS ---
FINAL REPORT TECHNIQUE: Axial images through the chest was performed with and without contrast by computed tomography. Sagittal and coronal reformatted images were obtained and reviewed. This study was performed with techniques to keep radiation doses as low as reasonably achievable, (ALARA). Individualized dose reduction techniques using automated exposure control or adjustment of mA and/or kV according to the patient's size were employed. CLINICAL HISTORY: New lung nodule RUL FINDINGS: There is a tiny noncalcified right lower lobe nodule on image 38, series 4. There is a noncalcified nodule in the anterior left upper lobe measuring 4 mm on image 26. There is a 3 mm left upper lobe nodule on image 26 laterally. There is an oval nodule in the left perihilar region measuring 5 mm on image 36 along the major fissure most compatible with perifissural lymph node. There is no evidence of adenopathy. No pleural or pericardial effusion is identified. Limited images of the upper abdomen are unremarkable. IMPRESSION: Tiny lung nodules as above, probably granulomas. If patient is at high risk for neoplasm, CT may be considered in 6 months. Reviewed, Interpreted and Dictated by Jez Cast MD Transcribed by Beth Arguelles Authenticated and [facility]
[2025-11-23 13:13] LABS: Blood Urea Nitrogen 8 mg/dl (9-20); Creatinine,Serum 1.20 mg/dl (0.66-1.25); Estimated Glomerular Filt Rate 62 ml/min (>60); GFR (African American) 75 ML/MIN (>60)
[2025-11-23] MEDS: IOPAMIDOL-370 (76%);100ML BOTTLE 75 ML IV (13:56)
[2025-11-23] MEDS: SODIUM CHLORIDE 0.9% 10ML SYR (RAD ONLY) 10 ML IV (13:56)
== END 2025-11-23 23:59 | disposition home or self-care (01) ==
LOC: RAD 12:49
PROVIDERS: PCP Family Medicine; Visit Provider Family Medicine
DX: M15.4 Erosive (osteo)arthritis (principal); R91.8 Other nonspecific abnormal finding of lung field; M25.551 Pain in right hip; M25.552 Pain in left hip
CPT/HCPCS: 36415; 71270; 73502; 82565; 84520; Q9967